=== PATIENT | female | born 1995 | race Caucasian/White ===

== ENCOUNTER 2017-04-03 17:17 | Emergency (ER) | payer OTHER, SELFPAY ==
--- NOTE | 2017-04-03 19:15 | HMH.EDUTC ---
[facility] – [place] Disposition Clinical Impression: Viral syndrome Disposition: Home, Self-Care Condition on Discharge: Good Instructions: DI for Viral Syndrome Additional Instructions: Rest, fluids Referrals: Faheem Vargas MD [Primary Care Provider] - Time of Disposition: 19:51 Medical Decision Making - Medical Records Medical records reviewed: Yes: I reviewed the patient's medical records. Vital Signs: 04/03/17 19:22 Temperature 98.6 F Temperature Source Temporal Artery Scan Pulse Rate [Left Brachial] 94 H Respiratory Rate 20 Blood Pressure [Left Arm] 124/75 Blood Pressure Mean [Left Arm] 91 Blood Pressure Source [Left Arm] Automatic Cuff Blood Pressure Position [Left Arm] Sitting 02 Sat by Pulse Oximetry 98 Oxygen Delivery Method Room Air - Lab Data Lab results reviewed: Yes: I reviewed the patient's lab results. - Berry Inquiry Pt receiving controlled substance: No [facility] [place] HPI - General Stated complaint: fever, body aches Time Seen by Provider: 04/03/17 19:15 - History of Present Illness Provider Complaint: Acute onset fever, body aches, back pain, sore throat, nausea around 12 hours ago. has had the flu, but she already had flu A earlier this year. No vomiting or diarrhea. Onset (ago): hour(s) (12) Relieving factors: none Exacerbating factors: none Associated symptoms: cough, fever/chills, headaches, malaise - Related Data Allergies Allergy/AdvReac Type Severity Reaction Status Date / Time No Known Allergies Allergy Unverified 02/09/17 14:57 [facility] History I have reviewed the patient's past medical history: Yes ROS Obtained: Yes All systems reviewed & no additional complaints - Constitutional Constitutional: Reports body ache, Reports chills, Reports fever(s), Reports malaise - ENT Ears, Nose, Mouth, and Throat: Reports sore throat Physical Exam - General General appearance: alert, in no apparent distress - Head Head exam: atraumatic, normocephalic, normal inspection - Eye Eye exam: Present: normal appearance, PERRL, EOMI - ENT ENT exam: Present: normal exam, normal oropharynx, mucous membranes moist, TM's normal bilaterally, normal external ear exam - Neck Neck exam: Present: normal inspection, full ROM, trachea midline. Absent: meningismus, lymphadenopathy - Chest Chest inspection: Present: normal inspection, symmetric chest wall rise. Absent: tenderness - Respiratory Respiratory exam: Present: normal lung sounds bilaterally. Absent: respiratory distress - Cardiovascular Cardiovascular exam: Present: regular rate, normal rhythm. Absent: JVD - Abdominal Exam Abdominal exam: Present: soft, normal bowel sounds. Absent: distention, tenderness, guarding - Extremities Exam Extremities exam: Present: normal inspection, full ROM, normal capillary refill. Absent: calf tenderness - Back Exam Back exam: Present: normal inspection. Absent: tenderness - Neurological Exam Neurological exam: Present: alert, oriented X3 - Psychiatric Psychiatric exam: Present: normal affect, normal mood - Skin Skin exam: Present: warm, dry, intact, normal color - Lymphatic Lymphatic Findings: no adenopathy
[2017-04-03 19:22] VITALS: BP 124/75; PULSE 94; RESP 20; TEMP 37; O2SAT 98; BMI 24.1
[2017-04-03 19:56] VITALS: BP 124/75; PULSE 94; RESP 20; TEMP 37; O2SAT 98
[2017-04-03 20:44] LABS: UTC Influenza A Antigen Negative (Negative)
[2017-04-03 20:45] LABS: UTC Influenza B Antigen Negative (Negative); UTC Strep Screen (Rapid) Negative (Negative)
== END 2017-04-03 19:57 | disposition home or self-care (01) ==
PROVIDERS: Emergency Provider Physician Assistant; Family Provider Family Medicine; PCP Family Medicine
DX: B34.9 Viral infection, unspecified (principal)
CPT/HCPCS: 87804; 87880; 99202

== ENCOUNTER 2017-04-05 09:53 | Emergency (ER) | payer OTHER, SELFPAY ==
[2017-04-05 09:57] VITALS: BP 140/90; PULSE 96; RESP 20; TEMP 37.1; O2SAT 100; BMI 24.1
--- NOTE | 2017-04-05 10:01 | XR_ITS ---
XR chest 2V HISTORY: ITS.REASON: cough ORDERING PHYSICIAN: Marcello Delgado MD PATIENT AGE: 21 years COMPARISON: August 10, 2016 FINDINGS: The cardiomediastinal silhouette and pulmonary vascularity are within normal limits. The lungs are clear without infiltrates, suspicious nodules, or pleural effusions. No acute bony abnormalities. IMPRESSION: Negative chest, no acute finding
--- NOTE | 2017-04-05 10:11 | HMH.EDGENADL ---
ED Disposition Clinical Impression: Viral syndrome, UTI (urinary tract infection) Disposition: Home, Self-Care Condition on Discharge: Good Instructions: Urinary Tract Infection, DI for Viral Syndrome Prescriptions: Ciprofloxacin HCl [Cipro 500mg Tab] 500 mg PO BID #14 tab Ondansetron [Zofran 4mg ODT] 4 mg PO Q6H PRN #10 tab.rapdis PRN Reason: Nausea Referrals: Faheem Vargas MD [Primary Care Provider] - Time of Disposition: 11:15 - Critical Care Critical Care Time: No Attestation: On 04/05/17, the high probability of a clinically significant, sudden or life threatening deterioration of the following system(s) required my full and direct attention, intervention and personal management. The time I documented below is in addition to time spent performing reported procedures but includes the following listed in this critical care notation. Medical Decision Making Vital Signs: 04/05/17 09:57 04/05/17 10:24 04/05/17 11:00 Temperature 98.7 F 98.7 F Temperature Source Oral Oral Pulse Rate [Right Radial] 96 H 88 81 Respiratory Rate 20 20 18 Blood Pressure [Right Arm] 140/90 138/80 125/75 Blood Pressure Mean [Right Arm] 106 99 91 Blood Pressure Source [Right Arm] Automatic Cuff Automatic Cuff Automatic Cuff Blood Pressure Position [Right Arm] Sitting Sitting Sitting 02 Sat by Pulse Oximetry 100 100 97 Oxygen Delivery Method Room Air Room Air Room Air - Lab Data Lab Results 04/05/17 10:17: WBC 4.5 L, RBC 4.98, Hgb 14.5, Hct 44.9, MCV 90.2, MCH 29.2, MCHC 32.3, RDW 13.2, Plt Count 277, MPV 7.2 L, Neut % (Auto) 47.7, Lymph % (Auto) 42.1, [place] % (Auto) 7.7, Eos % (Auto) 2.0, Baso % (Auto) 0.5, Neut # (Auto) 2.1, Lymph # (Auto) 1.9, [place] # (Auto) 0.3, Eos # (Auto) 0.1, Baso # (Auto) 0.0 04/05/17 10:17: Sodium 141, Potassium 3.6, Chloride 105, Carbon Dioxide 28, Anion Gap 11.6, BUN 8, Creatinine 0.57, Estimated Creat Clear 161, Estimated GFR 133, Est GFR ( Amer) 160, Glucose 88, Calcium 8.9, Total Bilirubin 0.3, AST 21, ALT 38, Alkaline Phosphatase 80, Total Protein 7.9, Albumin 3.6, Globulin 4.3 H, Albumin/Globulin Ratio 0.8 L 04/05/17 10:20: Urine Color Yellow, Urine Appearance Sl cloudy, Urine pH 6.0, Ur Specific [place] 1.025, Urine Protein Negative, Urine Glucose (UA) Negative, Urine Ketones Negative, Urine Blood 3+, Urine Nitrate Negative, Urine Bilirubin Negative, Urine Urobilinogen 0.2, Ur Leukocyte Esterase Trace, Urine RBC 20-50, Urine WBC Occasional, Ur Squamous Epith Cells 3-5, Urine Bacteria 1+ 04/05/17 10:20: Urine HCG, Qual Negative Result diagrams: 04/05/17 10:17 04/05/17 10:17 Orders (Tests/Meds): ED MEDICATIONS Generic Name Dose Route Start Last Admin Trade Name Freq PRN Reason Stop Dose Admin Sodium Chloride 1,000 mls @ 999 mls/hr 04/05/17 10:15 04/05/17 10:34 Sod Chlor 0.9% 1000ml Bag IV 04/05/17 11:15 999 mls/hr .Q1H1M EBONI Administration Discontinued Medications Generic Name Dose Route Start Last Admin Trade Name Freq PRN Reason Stop Dose Admin Ondansetron HCl 4 mg 04/05/17 10:02 04/05/17 10:35 Zofran 4mg/2ml Vial IV 04/05/17 10:03 Not Given ONCE ONE - Berry Inquiry Pt receiving controlled substance: No General Adult HPI - General Chief complaint: Headache Stated complaint: pain both side neck,ewing Mode of Arrival: Ambulatory Limitations: No Limitations Description of Symptoms (Recalled from ER Triage Doc. by RN): Patient states she has had a headache since Wednesday. Also endorsing full body weakness and aches, back pain and burning in her neck. History of headaches. Seen at [facility] Wednesday night and both flu and strep were negative. - History of Present Illness HPI narrative: Patient complains of having whole body myalgias some low backache some headache and some sore throat for the past several days as well as lightheadedness she states she feels dehydrated. sHe has been seen at urgent treatment center and has had a negative i
--- NOTE | 2017-04-05 10:14 | ED_ITS ---
ED Disposition Clinical Impression: Viral syndrome, UTI (urinary tract infection) Disposition: Home, Self-Care Condition on Discharge: Good Instructions: Urinary Tract Infection, DI for Viral Syndrome Prescriptions: Ciprofloxacin HCl [Cipro 500mg Tab] 500 mg PO BID #14 tab Ondansetron [Zofran 4mg ODT] 4 mg PO Q6H PRN #10 tab.rapdis PRN Reason: Nausea Referrals: Faheem Vargas MD [Primary Care Provider] - Time of Disposition: 11:15 - Critical Care Critical Care Time: No Attestation: On 04/05/17, the high probability of a clinically significant, sudden or life threatening deterioration of the following system(s) required my full and direct attention, intervention and personal management. The time I documented below is in addition to time spent performing reported procedures but includes the following listed in this critical care notation. Medical Decision Making Vital Signs: 04/05/17 09:57 04/05/17 10:24 04/05/17 11:00 Temperature 98.7 F 98.7 F Temperature Source Oral Oral Pulse Rate [Right Radial] 96 H 88 81 Respiratory Rate 20 20 18 Blood Pressure [Right Arm] 140/90 138/80 125/75 Blood Pressure Mean [Right Arm] 106 99 91 Blood Pressure Source [Right Arm] Automatic Cuff Automatic Cuff Automatic Cuff Blood Pressure Position [Right Arm] Sitting Sitting Sitting 02 Sat by Pulse Oximetry 100 100 97 Oxygen Delivery Method Room Air Room Air Room Air - Lab Data Lab Results 04/05/17 10:17: WBC 4.5 L, RBC 4.98, Hgb 14.5, Hct 44.9, MCV 90.2, MCH 29.2, MCHC 32.3, RDW 13.2, Plt Count 277, MPV 7.2 L, Neut % (Auto) 47.7, Lymph % (Auto ) 42.1, [place] % (Auto) 7.7, Eos % (Auto) 2.0, Baso % (Auto) 0.5, Neut # (Auto) 2.1, Lymph # (Auto) 1.9, [place] # (Auto) 0.3, Eos # (Auto) 0.1, Baso # (Auto) 0.0 04/05/17 10:17: Sodium 141, Potassium 3.6, Chloride 105, Carbon Dioxide 28, Anion Gap 11.6, BUN 8, Creatinine 0.57, Estimated Creat Clear 161, Estimated GFR 133, Est GFR ( Amer) 160, Glucose 88, Calcium 8.9, Total Bilirubin 0.3, AST 21, ALT 38, Alkaline Phosphatase 80, Total Protein 7.9, Albumin 3.6, Globulin 4.3 H, Albumin/Globulin Ratio 0.8 L 04/05/17 10:20: Urine Color Yellow, Urine Appearance Sl cloudy, Urine pH 6.0, Ur Specific [place] 1.025, Urine Protein Negative, Urine Glucose (UA) Negative, Urine Ketones Negative, Urine Blood 3+, Urine Nitrate Negative, Urine Bilirubin Negative, Urine Urobilinogen 0.2, Ur Leukocyte Esterase Trace, Urine RBC 20-50, Urine WBC Occasional, Ur Squamous Epith Cells 3-5, Urine Bacteria 1+ 04/05/17 10:20: Urine HCG, Qual Negative Result diagrams: 04/05/17 10:17 04/05/17 10:17 Orders (Tests/Meds): ED MEDICATIONS Generic Name Dose Route Start Last Admin Trade Name Freq PRN Reason Stop Dose Admin Sodium Chloride 1,000 mls @ 999 mls/hr 04/05/17 10:15 04/05/17 10:34 Sod Chlor 0.9% 1000ml Bag IV 04/05/17 11:15 999 mls/hr .Q1H1M EBONI Administration Discontinued Medications Generic Name Dose Route Start Last Admin Trade Name Freq PRN Reason Stop Dose Admin Ondansetron HCl 4 mg 04/05/17 10:02 04/05/17 10:35 Zofran 4mg/2ml Vial IV 04/05/17 10:03 Not Given ONCE ONE - Berry Inquiry Pt receiving controlled substance: No General Adult HPI - General Chief complaint: Headache Stated complaint: pain both side neck,ewing Mode of Arrival: Ambulatory Limitations: No Limitations De
[2017-04-05 10:23] LABS: Basophils % 0.5 % (0.1-2.0); Eosinophils # 0.1 K/mm3 (0.0-0.4); Hematocrit 44.9 % (37.0-47.0); Hemoglobin 14.5 g/dL (12.2-16.2); Lymphocytes # 1.9 K/mm3 (0.7-4.5); Lymphocytes % 42.1 K/mm3 (10-50); Mean Corpuscular HGB Conc 32.3 g/dL (31.8-35.4); Mean Corpuscular Hemoglobin 29.2 pg (27.0-31.2); Mean Corpuscular Volume 90.2 fl (81-99); Mean Platelet Volume 7.2 fl (7.4-10.4); Monocytes # 0.3 K/mm3 (0.1-1.0); Monocytes % 7.7 % (1.7-9.3); Neutrophils # 2.1 K/mm3 (1.8-7.8); Neutrophils % 47.7 % (37.0-80.0); Platelet Count 277 K/mm3 (142-424); Red Blood Count 4.98 M/mm3 (4.20-5.40); Red Cell Distribution Width 13.2 % (11.5-17.5); White Blood Count 4.5 K/mm3 (4.8-10.8)
[2017-04-05 10:24] VITALS: BP 138/80; PULSE 88; RESP 20; TEMP 37.1; O2SAT 100
[2017-04-05 10:37] LABS: Alanine Aminotransferase 38 U/L (12-78); Albumin Level 3.6 gm/dL (3.4-5.0); Albumin/Globulin Ratio 0.8 (1.1-1.8); Alkaline Phosphatase 80 U/L (46-116); Anion Gap 11.6 mEq/L (5-15); Aspartate Amino Transferase 21 U/L (15-37); Bilirubin,Total 0.3 mg/dL (0.2-1.0); Blood Urea Nitrogen 8 mg/dL (7-18); Calcium 8.9 mg/dL (8.5-10.1); Carbon Dioxide 28 mmol/L (21.0-32.0); Chloride 105 mmol/L (98-107); Creatinine Clearance Estimated 161 mL/min (0-300); Creatinine,Serum 0.57 mg/dL (0.55-1.02); Estimated Glomerular Filt Rate 133 ml/min (>60); GFR (African American) 160 ML/MIN (>60); Globulin 4.3 gm/dl (1.3-3.2); Glucose 88 mg/dL (74-106); Potassium 3.6 mmoL/L (3.5-5.1); Sodium 141 mmol/L (136-145); Total Protein,Serum 7.9 gm/dL (6.4-8.2)
[2017-04-05 10:43] LABS: Microscopic, Urine URINE MICROSCOPIC (MICROSCOPIC)
[2017-04-05 10:45] LABS: Appearance,Urine SL CLOUDY (Clear); Bilirubin,Urine Negative (Negative); Blood, Urine 3+ (Negative); Color,Urine YELLOW (Yellow); Glucose,Urine (UA) Negative (Negative); Ketones,Urine Negative (Negative); Leukocyte Esterase,Urine TRACE (Negative); Nitrate,Urine Negative (Negative); Protein,Urine Negative (Negative); Specific Gravity, Urine 1.025 (1.005-1.030); Urobilinogen,Urine 0.2 EU/dl (0.2)
[2017-04-05 10:52] LABS: Urine Pregnancy, HCG Qual. Negative (Negative)
[2017-04-05 11:00] VITALS: BP 125/75; PULSE 81; RESP 18; O2SAT 97
[2017-04-05 11:03] LABS: RBC,Urine 20-50 #/hpf (0-3); WBC,Urine Occasional #/hpf (0-3)
[2017-04-05 11:04] LABS: Bacteria,Urine 1+ /lpf
[2017-04-05 11:23] VITALS: BP 120/78; PULSE 88; RESP 20; TEMP 37.1; O2SAT 99
== END 2017-04-05 11:32 | disposition home or self-care (01) ==
PROVIDERS: Emergency Provider Emergency Medicine; Family Provider Family Medicine; PCP Family Medicine
DX: B34.9 Viral infection, unspecified (principal); N39.0 Urinary tract infection, site not specified; F17.210 Nicotine dependence, cigarettes, uncomplicated
CPT/HCPCS: 71046; 80053; 81001; 81025; 85025; 96365; 99283

== ENCOUNTER → 2017-06-24 16:53 | Outpatient (CLI) | payer OTHER, SELFPAY ==
[2017-06-24 17:11] LABS: Basophils % 0.4 % (0.1-2.0); Eosinophils # 0.2 K/mm3 (0.0-0.4); Eosinophils % 1.9 % (0.1-12.0); Hematocrit 41.4 % (37.0-47.0); Hemoglobin 13.8 g/dL (12.2-16.2); Lymphocytes # 3.8 K/mm3 (0.7-4.5); Lymphocytes % 38.6 K/mm3 (10-50); Mean Corpuscular HGB Conc 33.3 g/dL (31.8-35.4); Mean Corpuscular Hemoglobin 29.6 pg (27.0-31.2); Mean Corpuscular Volume 88.9 fl (81-99); Mean Platelet Volume 7.1 fl (7.4-10.4); Monocytes # 0.4 K/mm3 (0.1-1.0); Monocytes % 4.1 % (1.7-9.3); Neutrophils # 5.4 K/mm3 (1.8-7.8); Neutrophils % 55.1 % (37.0-80.0); Platelet Count 416 K/mm3 (142-424); Red Blood Count 4.66 M/mm3 (4.20-5.40); Red Cell Distribution Width 12.7 % (11.5-17.5); White Blood Count 9.8 K/mm3 (4.8-10.8)
[2017-06-24 19:29] LABS: Blood Urea Nitrogen 10 mg/dL (7-18); Carbon Dioxide 25 mmol/L (21.0-32.0); Chloride 106 mmol/L (98-107); Creatinine,Serum 0.59 mg/dL (0.55-1.02); Estimated Glomerular Filt Rate 127 ml/min (>60); Free T4 (Free Thyroxine) 1.03 ng/dl (0.76-1.46); GFR (African American) 154 ML/MIN (>60); Glucose 131 mg/dL (74-106); Sodium 142 mmol/L (136-145); Thyroid Stimulating Hormone 0.94 uIU/ml (0.358-3.740)
== END ==
PROVIDERS: Visit Provider Physician Assistant
DX: R00.0 Tachycardia, unspecified (principal); R06.00 Dyspnea, unspecified
CPT/HCPCS: 36415; 80048; 84439; 84443; 85025

== ENCOUNTER → 2017-08-09 13:05 | Outpatient (CLI) | payer OTHER, SELFPAY | PROVIDERS: Visit Provider Physician Assistant | DX: R00.2 Palpitations (principal) | CPT/HCPCS: 93005 ==

== ENCOUNTER → 2017-09-27 14:10 | Outpatient (CLI) | payer OTHER, SELFPAY ==
[2017-09-27 14:47] LABS: Basophils % 0.5 % (0.1-2.0); Eosinophils # 0.2 K/mm3 (0.0-0.4); Eosinophils % 1.8 % (0.1-12.0); Hematocrit 40.8 % (37.0-47.0); Hemoglobin 13.3 g/dL (12.2-16.2); Lymphocytes # 2.7 K/mm3 (0.7-4.5); Lymphocytes % 32.6 K/mm3 (10-50); Mean Corpuscular HGB Conc 32.7 g/dL (31.8-35.4); Mean Corpuscular Volume 88.5 fl (81-99); Mean Platelet Volume 6.8 fl (7.4-10.4); Monocytes # 0.3 K/mm3 (0.1-1.0); Monocytes % 3.6 % (1.7-9.3); Neutrophils # 5.1 K/mm3 (1.8-7.8); Neutrophils % 61.5 % (37.0-80.0); Platelet Count 362 K/mm3 (142-424); Red Cell Distribution Width 13.5 % (11.5-17.5); White Blood Count 8.3 K/mm3 (4.8-10.8)
[2017-09-27 15:38] LABS: Amphetamine/Metha Screen,Urine Negative ng/mL (<1000); Barbiturates Screen,Urine Negative ng/mL (<200); Benzodiazepines Screen,Urine Negative ng/mL (<200); Cannabinoid Screen,Urine Negative ng/mL (<50); Cocaine Screen,Urine Negative ng/mL (<300); Methadone Screen,Urine Negative ng/mL (<300); Opiate Screen,Urine Negative ng/mL (<300); Phencyclidine Screen,Urine Negative ng/mL (<25)
[2017-09-27 16:08] LABS: HCG,Quantitative 1728 mIU/mL; Thyroid Stimulating Hormone 1.27 uIU/ml (0.358-3.740)
[2017-09-30 06:48] LABS: HIV Screen 4th Generation wRfx Non Reactive (Non Reactive); Hepatitis B Surface Antigen Negative (Negative); Rapid Plasma Reagin Ab Titer Non Reactive (NonRea<1:1)
[2017-10-01 15:19] LABS: Rubella Antibodies, IgG 2.21 index (Immune >0.99)
== END ==
PROVIDERS: Family Provider Family Medicine; Visit Provider Obstetrics & Gynecology
DX: Z34.90 Encounter for supervision of normal pregnancy, unspecified, unspecified trimester (principal)
CPT/HCPCS: 36415; 80305; 84443; 84702; 85025; 86592; 86703; 86762; 86850; 87340; G0432

== ENCOUNTER → 2017-09-30 08:14 | Outpatient (CLI) | payer OTHER, SELFPAY ==
[2017-09-30 10:27] LABS: HCG,Quantitative 1715 mIU/mL
== END ==
PROVIDERS: Visit Provider Obstetrics & Gynecology
DX: Z34.90 Encounter for supervision of normal pregnancy, unspecified, unspecified trimester (principal)
CPT/HCPCS: 36415; 84702

== ENCOUNTER → 2017-10-03 07:59 | Outpatient (CLI) | payer OTHER, SELFPAY ==
[2017-10-03 09:51] LABS: HCG,Quantitative 1794 mIU/mL
== END ==
PROVIDERS: Visit Provider Obstetrics & Gynecology
DX: O20.0 Threatened abortion (principal)
CPT/HCPCS: 36415; 84702

== ENCOUNTER → 2018-01-03 08:53 | Outpatient (CLI) | payer OTHER, SELFPAY ==
[2018-01-03 10:21] LABS: Glucose 1 Hour 125 mg/dL (74-106)
== END ==
PROVIDERS: Visit Provider Obstetrics & Gynecology
DX: E16.2 Hypoglycemia, unspecified (principal)
CPT/HCPCS: 36415; 82951

== ENCOUNTER → 2018-01-04 15:57 | Outpatient (CLI) | payer OTHER, SELFPAY ==
--- NOTE | 2018-01-04 16:02 | XR_ITS ---
EXAM: XR lumbar spine min 4V HISTORY: ITS.REASON: LOW BACK PAIN ORDERING PHYSICIAN: Faheem Vargas MD PATIENT AGE: 22 years COMPARISON: None FINDINGS: Normal alignment. There is minimal lumbar curvature convex left No fracture or dislocation. No lytic or blastic change. No significant degenerative change. The disc spaces are preserved. IMPRESSION: 1. No acute finding. 2. Minimal lumbar curvature convex left
== END ==
PROVIDERS: PCP Family Medicine; Visit Provider Family Medicine
DX: M54.5 Low back pain (principal)
CPT/HCPCS: 72110

== ENCOUNTER → 2018-03-29 14:14 | Outpatient (CLI) | payer OTHER, SELFPAY ==
[2018-03-29 14:31] LABS: Basophils # 0.1 K/mm3 (0-0.2); Basophils % 0.7 % (0.1-2.0); Eosinophils # 0.3 K/mm3 (0.0-0.4); Eosinophils % 3.3 % (0.1-12.0); Hematocrit 45.7 % (37.0-47.0); Hemoglobin 14.9 g/dL (12.2-16.2); Lymphocytes # 3.2 K/mm3 (0.7-4.5); Lymphocytes % 36.1 % (10-50); Mean Corpuscular HGB Conc 32.6 g/dL (31.8-35.4); Mean Corpuscular Hemoglobin 29.4 pg (27.0-31.2); Mean Corpuscular Volume 90.4 fl (81-99); Mean Platelet Volume 7.7 fl (7.4-10.4); Monocytes # 0.3 K/mm3 (0.1-1.0); Monocytes % 3.3 % (1.7-9.3); Neutrophils % 56.5 % (37.0-80.0); Platelet Count 347 K/mm3 (142-424); Red Blood Count 5.05 M/mm3 (4.20-5.40); Red Cell Distribution Width 13.4 % (11.5-17.5); White Blood Count 8.9 K/mm3 (4.8-10.8)
[2018-03-31 08:45] LABS: HIV Screen 4th Generation wRfx Non Reactive (Non Reactive)
[2018-03-31 09:30] LABS: Rapid Plasma Reagin Ab Titer Non Reactive (NonRea<1:1); Rubella Antibodies, IgG 1.68 index (Immune >0.99)
[2018-03-31 11:51] LABS: Hepatitis B Surface Antigen Negative (Negative)
== END ==
PROVIDERS: Visit Provider Obstetrics & Gynecology
DX: Z34.90 Encounter for supervision of normal pregnancy, unspecified, unspecified trimester (principal)
CPT/HCPCS: 36415; 84443; 85025; 86592; 86703; 86762; 86850; 87340; G0432

== ENCOUNTER → 2018-03-31 17:06 | Outpatient (CLI) | payer OTHER, SELFPAY ==
[2018-03-31 19:11] LABS: HCG,Quantitative 3257 mIU/mL
== END ==
PROVIDERS: Visit Provider Obstetrics & Gynecology
DX: Z34.90 Encounter for supervision of normal pregnancy, unspecified, unspecified trimester (principal)
CPT/HCPCS: 84702

== ENCOUNTER → 2018-04-04 07:33 | Outpatient (CLI) | payer OTHER, SELFPAY ==
[2018-04-04 10:22] LABS: HCG,Quantitative 7600 mIU/mL
== END ==
PROVIDERS: Visit Provider Obstetrics & Gynecology
DX: Z34.90 Encounter for supervision of normal pregnancy, unspecified, unspecified trimester (principal)
CPT/HCPCS: 36415; 84702

== ENCOUNTER → 2018-06-20 16:43 | Outpatient (CLI) | payer OTHER, SELFPAY ==
[2018-06-23 13:10] LABS: AFP Value 39.3 ng/mL (.); DIA Value 179.06 pg/mL (.); DSR (Second Trimester) 1 IN 10000 (.); Gestat. Age Based On EDD (.); OSBR Risk 1 IN 4529 (.); Results Report (.); hCG MoM 0.38 (.); hCG Value 14227 mIU/mL (.); uE3 MoM 0.99 (.); uE3 Value 0.77 ng/mL (.)
== END ==
PROVIDERS: Visit Provider Obstetrics & Gynecology
DX: Z34.90 Encounter for supervision of normal pregnancy, unspecified, unspecified trimester (principal)
CPT/HCPCS: 36415; 82106

== ENCOUNTER 2018-07-16 00:48 | Outpatient (CLI) | payer OTHER, SELFPAY ==
[2018-07-16 00:55] VITALS: BMI 29.2
[2018-07-16 01:06] LABS: Appearance,Urine CLEAR (Clear); Bilirubin,Urine Negative (Negative); Blood, Urine 3+ (Negative); Glucose,Urine (UA) Negative (Negative); Ketones,Urine Negative (Negative); Leukocyte Esterase,Urine 2+ (Negative); Microscopic, Urine URINE MICROSCOPIC (MICROSCOPIC); Nitrate,Urine Negative (Negative); Protein,Urine TRACE (Negative); Specific Gravity, Urine 1.025 (1.005-1.030)
[2018-07-16 01:07] LABS: Color,Urine Dark Yellow (Yellow)
[2018-07-16 01:12] LABS: RBC,Urine TNTC #/hpf (0-3)
[2018-07-16 01:13] LABS: Bacteria,Urine 2+ /lpf; Mucus,Urine 1+ /lpf; Sperm,Urine 2+ /lpf
[2018-07-16 01:15] LABS: Amphetamine/Metha Screen,Urine Negative ng/mL (<1000); Barbiturates Screen,Urine Negative ng/mL (<200); Benzodiazepines Screen,Urine Negative ng/mL (<200); Cannabinoid Screen,Urine Negative ng/mL (<50); Cocaine Screen,Urine Negative ng/mL (<300); Methadone Screen,Urine Negative ng/mL (<300); Opiate Screen,Urine Negative ng/mL (<300); Phencyclidine Screen,Urine Negative ng/mL (<25)
[2018-07-16 01:27] VITALS: BP 118/72; PULSE 102; RESP 18; TEMP 37.3; O2SAT 98; BMI 29.2
== END 2018-07-16 01:50 | disposition home or self-care (01) ==
LOC: OBOUT 00:50 → OB 00:52
PROVIDERS: PCP Family Medicine; Referring Provider Obstetrics & Gynecology; Visit Provider Nurse Practitioner Obstetrics & Gynecology
DX: Z3A.20 20 weeks gestation of pregnancy; O36.8190 Decreased fetal movements, unspecified trimester, not applicable or unspecified; O26.851 Spotting complicating pregnancy, first trimester
CPT/HCPCS: 80305; 81001; 87086

== ENCOUNTER → 2018-08-11 15:50 | Outpatient (CLI) | payer OTHER, SELFPAY | PROVIDERS: PCP Family Medicine; Visit Provider Obstetrics & Gynecology | DX: R94.31 Abnormal electrocardiogram [ECG] [EKG] (principal) | CPT/HCPCS: 93005 ==

== ENCOUNTER → 2018-09-03 10:56 | Outpatient (CLI) | payer OTHER, SELFPAY | PROVIDERS: Visit Provider Obstetrics & Gynecology | DX: Z34.90 Encounter for supervision of normal pregnancy, unspecified, unspecified trimester (principal) ==

== ENCOUNTER → 2018-09-08 09:30 | Outpatient (CLI) | payer OTHER, SELFPAY ==
--- NOTE | 2018-09-08 09:31 | US_ITS ---
US gallbladder HISTORY: Right upper quadrant pain with vomiting ITS.REASON: ABDOMINAL PAIN ORDERING PHYSICIAN: Rylan Lamb MD PATIENT AGE: 22 years Comparison: None FINDINGS: PANCREAS: Unremarkable. No obvious mass or abnormal fluid collection. No ductal dilatation LIVER: No focal liver lesions demonstrated. Homogeneous echogenicity. No intrahepatic biliary ductal dilatation evident RIGHT KIDNEY: Unremarkable. Normal size and echogenicity. No hydronephrosis GALLBLADDER: No gallstones, gallbladder wall thickening, pericholecystic fluid, or biliary dilatation. Gallbladder is slightly distended at 9 x 4 cm IMPRESSION: 1. No gallstones, pericholecystic fluid, biliary dilatation, or gallbladder wall thickening. 2. Gallbladder is slightly distended at 9 x 4 cm
== END ==
PROVIDERS: PCP Family Medicine; Visit Provider Obstetrics & Gynecology
DX: O26.899 Other specified pregnancy related conditions, unspecified trimester (principal); R10.9 Unspecified abdominal pain
CPT/HCPCS: 76705

== ENCOUNTER → 2018-09-22 10:41 | Outpatient (CLI) | payer OTHER, SELFPAY ==
--- NOTE | 2018-09-22 10:45 | CA_ITS ---
PROCEDURE: 2-D M-mode and color Doppler study INDICATIONS FOR THE TEST: Chest pain COPD Heart Murmur Tobacco Smoking+ Palpitations+ Fatigue Syncope Edema Hypertension Diabetes Mellitus Rheumatic Fever SOB COON Obesity Hyperlipidemia Family History HD Additional History 30 wks preg. PATIENT INFORMATION HEIGHT:65 WEIGHT:172 GENDER: Female B/P:151/95 2-D/M-MODE INTERPRETATION: 2-D MEASUREMENTS OBSERVED VALUES IN CMS Right Ventricular Dimension (RVDd) 1.6 Interventricular Septum (Thickness)(IVsd) 1.1 Left Ventricular Internal Dimensions(LVIDd) 4.0 Left Ventricular Posterior Wall (Thickness)(LVPWd) 1.1 Aortic Root 2.2 Aortic Cusp Separation 2.1 Left Atrial Dimensions (LAD) 3.2 2D 1. Left atrium is normal size, left ventricle is normal size, there is no concentric left ventricular hypertrophy, visually estimated ejection fraction 55% with no regional wall motion abnormality. 2. The right atrium and right ventricle are normal size and contractility. 3. The aortic, mitral and tricuspid valvular grossly normal. 4. The pulmonic valve is poorly visualized. 5. No significant pericardial effusion noted. DOPPLER INTERROGATION: Doppler interrogation of the aortic, mitral and tricuspid valvular presence of mild mitral and tricuspid regurgitation, tricuspid regurgitation jet velocity is inadequate for calculation of the right ventricular systolic pressure, diastolic parameters are within normal range. CONCLUSION: 1. Normal left ventricular size, preserved left ventricular systolic function, visually estimated ejection fraction 55% with no regional wall motion abnormality, diastolic parameters are within normal range. 2. Mild mitral and tricuspid regurgitation of no hemodynamic significance. 3. No significant pericardial effusion noted.
[2018-09-22 16:54] LABS: Basophils % 0.2 % (0.1-2.0); Eosinophils # 0.1 K/mm3 (0.0-0.4); Eosinophils % 0.7 % (0.1-12.0); Hemoglobin 11.8 g/dL (12.2-16.2); Lymphocytes # 1.6 K/mm3 (0.7-4.5); Lymphocytes % 17.1 % (10-50); Mean Corpuscular HGB Conc 32.7 g/dL (31.8-35.4); Mean Corpuscular Hemoglobin 30.6 pg (27.0-31.2); Mean Corpuscular Volume 93.6 fl (81-99); Monocytes # 0.5 K/mm3 (0.1-1.0); Monocytes % 5.3 % (1.7-9.3); Neutrophils # 6.9 K/mm3 (1.8-7.8); Neutrophils % 76.7 % (37.0-80.0); Platelet Count 268 K/mm3 (142-424); Red Blood Count 3.85 M/mm3 (4.20-5.40); Red Cell Distribution Width 13.1 % (11.5-17.5)
[2018-09-22 17:00] LABS: Alanine Aminotransferase 17 U/L (12-78); Anion Gap 14.2 mEq/L (5-15); Aspartate Amino Transferase 9 U/L (15-37); Blood Urea Nitrogen 5 mg/dL (7-18); Calcium 9.2 mg/dL (8.5-10.1); Carbon Dioxide 24 mmol/L (21.0-32.0); Chloride 102 mmol/L (98-107); Creatinine,Serum 0.54 mg/dL (0.55-1.02); Estimated Glomerular Filt Rate 139 ml/min (>60); GFR (African American) 168 ML/MIN (>60); Glucose 98 mg/dL (74-106); Potassium 3.2 mmoL/L (3.5-5.1); Sodium 137 mmol/L (136-145); Uric Acid 3.7 mg/dL (2.6-7.2)
[2018-09-22 17:19] LABS: Activated Partial Thrombo Time 28.3 seconds (23.6-34.0); Fibrinogen 434 mg/dL (204-500); INR 0.94 (0.9-1.1); Prothrombin Time 9.8 seconds (9.4-11.8)
[2018-09-22 17:30] LABS: D-Dimer 618 ng/mL (0-400)
== END ==
PROVIDERS: Obstetrics & Gynecology; PCP Family Medicine; Visit Provider Internal Medicine Cardiovascular Disease
DX: R00.2 Palpitations (principal); R00.0 Tachycardia, unspecified; R42 Dizziness and giddiness; R55 Syncope and collapse
CPT/HCPCS: 36415; 80048; 84450; 84460; 84550; 85025; 85378; 85384; 85610; 85730; 93270; 93306

== ENCOUNTER → 2018-09-22 16:20 | Outpatient (CLI) | payer OTHER, SELFPAY | PROVIDERS: Visit Provider Obstetrics & Gynecology | DX: Z34.90 Encounter for supervision of normal pregnancy, unspecified, unspecified trimester (principal) ==

== ENCOUNTER → 2018-10-03 15:57 | Outpatient (CLI) | payer OTHER, SELFPAY ==
[2018-10-03 16:50] LABS: D-Dimer 420 ng/mL (0-400)
== END ==
PROVIDERS: Visit Provider Obstetrics & Gynecology
DX: Z34.90 Encounter for supervision of normal pregnancy, unspecified, unspecified trimester (principal)
CPT/HCPCS: 36415; 85378

== ENCOUNTER 2018-10-12 21:55 | Outpatient (CLI) | payer OTHER, SELFPAY ==
[2018-10-12 22:27] VITALS: BMI 29.1
[2018-10-12 22:54] VITALS: BP 134/84; PULSE 97; RESP 16; TEMP 36.6; O2SAT 97; BMI 29.1
[2018-10-12 22:58] LABS: Appearance,Urine CLEAR (Clear); Bilirubin,Urine Negative (Negative); Blood, Urine Negative (Negative); Color,Urine YELLOW (Yellow); Glucose,Urine (UA) Negative (Negative); Ketones,Urine Negative (Negative); Leukocyte Esterase,Urine 2+ (Negative); Microscopic, Urine URINE MICROSCOPIC (MICROSCOPIC); Nitrate,Urine Negative (Negative); Protein,Urine Negative (Negative); Specific Gravity, Urine 1.015 (1.005-1.030); Urobilinogen,Urine 0.2 EU/dl (0.2)
[2018-10-12 23:07] LABS: Amphetamine/Metha Screen,Urine Negative ng/mL (<1000); Barbiturates Screen,Urine Negative ng/mL (<200); Benzodiazepines Screen,Urine Negative ng/mL (<200); Cannabinoid Screen,Urine Negative ng/mL (<50); Cocaine Screen,Urine Negative ng/mL (<300); Methadone Screen,Urine Negative ng/mL (<300); Opiate Screen,Urine Negative ng/mL (<300); Phencyclidine Screen,Urine Negative ng/mL (<25)
[2018-10-12 23:23] LABS: Amorphous Sediment,Urine 1+ /lpf; Bacteria,Urine Trace /lpf
[2018-10-12 23:53] LABS: Fetal Fibronectin (Rapid) Negative (Negative)
== END 2018-10-13 | disposition home or self-care (01) ==
LOC: OBOUT 21:56 → OB 21:58
PROVIDERS: PCP Family Medicine; Visit Provider Nurse Practitioner Obstetrics & Gynecology
DX: O36.8130 Decreased fetal movements, third trimester, not applicable or unspecified (principal); Z3A.33 33 weeks gestation of pregnancy
CPT/HCPCS: 59025; 80305; 81001; 82731; 87086

== ENCOUNTER → 2018-10-17 16:12 | Outpatient (CLI) | payer OTHER, SELFPAY | PROVIDERS: Visit Provider Obstetrics & Gynecology | DX: Z34.90 Encounter for supervision of normal pregnancy, unspecified, unspecified trimester (principal) | CPT/HCPCS: 86403 ==

== ENCOUNTER 2018-11-06 19:12 | Outpatient (CLI) | payer OTHER, SELFPAY ==
[2018-11-06 19:24] VITALS: BMI 29.9
[2018-11-06 19:31] LABS: Microscopic, Urine URINE MICROSCOPIC (MICROSCOPIC)
[2018-11-06 19:36] LABS: Appearance,Urine CLOUDY (Clear); Bilirubin,Urine Negative (Negative); Blood, Urine Negative (Negative); Color,Urine YELLOW (Yellow); Glucose,Urine (UA) Negative (Negative); Ketones,Urine Negative (Negative); Leukocyte Esterase,Urine 2+ (Negative); Nitrate,Urine Negative (Negative); PH,Urine 7.5 (5.0-8.5); Protein,Urine Negative (Negative); Urobilinogen,Urine 0.2 EU/dl (0.2)
[2018-11-06 19:43] LABS: Amphetamine/Metha Screen,Urine Negative ng/mL (<1000); Barbiturates Screen,Urine Negative ng/mL (<200); Benzodiazepines Screen,Urine Negative ng/mL (<200); Cannabinoid Screen,Urine Negative ng/mL (<50); Cocaine Screen,Urine Negative ng/mL (<300); Methadone Screen,Urine Negative ng/mL (<300); Opiate Screen,Urine Negative ng/mL (<300); Phencyclidine Screen,Urine Negative ng/mL (<25)
[2018-11-06 19:48] LABS: Bacteria,Urine 1+ /lpf; Squamous Epithelial Cell,Urine 20-50 #/hpf (0-5); WBC,Urine 50-100 #/hpf (0-3)
[2018-11-06 19:49] VITALS: BP 137/86; PULSE 112; RESP 18; TEMP 37.2; O2SAT 97; BMI 29.9
== END 2018-11-06 21:10 | disposition home or self-care (01) ==
LOC: OBOUT 19:14 → OB 19:15
PROVIDERS: PCP Family Medicine; Visit Provider Nurse Practitioner Obstetrics & Gynecology
DX: O26.893 Other specified pregnancy related conditions, third trimester (principal); Z3A.37 37 weeks gestation of pregnancy; M79.89 Other specified soft tissue disorders
CPT/HCPCS: 59025; 80305; 81001; 87086

== ENCOUNTER 2018-11-07 14:24 | Outpatient (CLI) | payer OTHER, SELFPAY ==
[2018-11-07 14:33] VITALS: BP 134/75; PULSE 105; RESP 18; TEMP 36.9; O2SAT 97; BMI 29.9
[2018-11-07 15:00] VITALS: BP 130/81
[2018-11-07 15:15] VITALS: BP 126/74
[2018-11-07 15:18] LABS: Activated Partial Thrombo Time 27.9 seconds (23.6-34.0); Fibrinogen 423 mg/dL (204-500); INR 0.91 (0.9-1.1); Prothrombin Time 9.5 seconds (9.4-11.8)
[2018-11-07 15:20] LABS: Basophils % 0.2 % (0.1-2.0); Eosinophils # 0.1 K/mm3 (0.0-0.4); Eosinophils % 1.1 % (0.1-12.0); Hematocrit 33.7 % (37.0-47.0); Hemoglobin 11.3 g/dL (12.2-16.2); Lymphocytes # 2.5 K/mm3 (0.7-4.5); Mean Corpuscular HGB Conc 33.5 g/dL (31.8-35.4); Mean Corpuscular Hemoglobin 30.4 pg (27.0-31.2); Mean Corpuscular Volume 90.7 fl (81-99); Mean Platelet Volume 7.7 fl (7.4-10.4); Monocytes # 0.6 K/mm3 (0.1-1.0); Neutrophils # 8.5 K/mm3 (1.8-7.8); Neutrophils % 72.8 % (37.0-80.0); Platelet Count 299 K/mm3 (142-424); Red Blood Count 3.71 M/mm3 (4.20-5.40); Red Cell Distribution Width 13.4 % (11.5-17.5); White Blood Count 11.7 K/mm3 (4.8-10.8)
[2018-11-07 15:24] LABS: Alanine Aminotransferase 13 U/L (12-78); Anion Gap 14.4 mEq/L (5-15); Aspartate Amino Transferase 12 U/L (15-37); Blood Urea Nitrogen 4 mg/dL (7-18); Calcium 8.8 mg/dL (8.5-10.1); Carbon Dioxide 21 mmol/L (21.0-32.0); Chloride 105 mmol/L (98-107); Creatinine Clearance Estimated 294 mL/min (50-200); Creatinine,Serum 0.38 mg/dL (0.55-1.02); Estimated Glomerular Filt Rate 208 ml/min (>60); GFR (African American) 252 ML/MIN (>60); Glucose 90 mg/dL (74-106); Potassium 3.4 mmoL/L (3.5-5.1); Sodium 137 mmol/L (136-145); Uric Acid 3.3 mg/dL (2.6-7.2)
[2018-11-07 15:30] VITALS: BP 121/75
[2018-11-07 15:45] VITALS: BP 124/74
--- NOTE | 2018-11-07 15:47 | HMH.ACPN2 ---
Internal Medicine - PN: Subj *Date: 11/07/18 *Time: 15:47 (NST is reactive. Baseline is in the 140s. Blood pressure 130s over 70s. DTRs normal. PIH labs essentially normal. Impression: Stable. Will observe as outpatient. Return to the office in 3 days.) Exam Vital signs and Labs for Last 24 Hours: Temp Pulse Resp BP Pulse Ox 98.4 F 105 H 18 134/75 97 11/07/18 14:33 11/07/18 14:33 11/07/18 14:33 11/07/18 14:33 11/07/18 14:33 Laboratory Results - last 24 hr 11/07/18 14:52: WBC 11.7 H, RBC 3.71 L, Hgb 11.3 L, Hct 33.7 L, MCV 90.7, MCH 30.4, MCHC 33.5, RDW 13.4, Plt Count 299, MPV 7.7, Neut % (Auto) 72.8, Lymph % (Auto) 21.0, [place] % (Auto) 5.0, Eos % (Auto) 1.1, Baso % (Auto) 0.2, Neut # (Auto) 8.5 H, Lymph # (Auto) 2.5, [place] # (Auto) 0.6, Eos # (Auto) 0.1, Baso # (Auto) 0.0 11/07/18 14:52: PT 9.5, INR 0.91, APTT 27.9, Fibrinogen 423 11/07/18 14:52: Sodium 137, Potassium 3.4 L, Chloride 105, Carbon Dioxide 21, Anion Gap 14.4, BUN 4 L, Creatinine 0.38 L, Estimated Creat Clear 294, Estimated GFR 208, Est GFR ( Amer) 252, Glucose 90, Uric Acid 3.3, Calcium 8.8, AST 12 L, ALT 13 I & O for Last 24 hours: Intake & Output 11/05/18 11/06/18 11/07/18 11/08/18 11:59 11:59 11:59 11:59 Weight 180 lb
[2018-11-07 15:58] LABS: D-Dimer 687 ng/mL (0-400)
== END 2018-11-07 15:55 | disposition home or self-care (01) ==
LOC: OBOUT 14:25 → OB 14:26
PROVIDERS: PCP Family Medicine; Visit Provider Obstetrics & Gynecology
DX: O13.3 Gestational [pregnancy-induced] hypertension without significant proteinuria, third trimester (principal); Z3A.37 37 weeks gestation of pregnancy
CPT/HCPCS: 36415; 59025; 80048; 84450; 84460; 84550; 85025; 85378; 85384; 85610; 85730

== ENCOUNTER 2018-11-12 20:08 | Inpatient (IN) ==
[2018-11-12 20:21] LABS: Microscopic, Urine URINE MICROSCOPIC (MICROSCOPIC)
[2018-11-12 20:28] LABS: Appearance,Urine CLEAR (Clear); Bilirubin,Urine Negative (Negative); Blood, Urine TRACE-I (Negative); Color,Urine YELLOW (Yellow); Glucose,Urine (UA) Negative (Negative); Ketones,Urine Negative (Negative); Leukocyte Esterase,Urine 2+ (Negative); Protein,Urine Negative (Negative); Specific Gravity, Urine >= 1.030 (1.005-1.030); Urobilinogen,Urine 0.2 EU/dl (0.2)
[2018-11-12 20:38] LABS: Amphetamine/Metha Screen,Urine Negative ng/mL (<1000); Barbiturates Screen,Urine Negative ng/mL (<200); Benzodiazepines Screen,Urine Negative ng/mL (<200); Cannabinoid Screen,Urine Negative ng/mL (<50); Cocaine Screen,Urine Negative ng/mL (<300); Methadone Screen,Urine Negative ng/mL (<300); Opiate Screen,Urine Negative ng/mL (<300); Phencyclidine Screen,Urine Negative ng/mL (<25)
[2018-11-12 20:40] LABS: Bacteria,Urine Trace /lpf
[2018-11-12 23:19] LABS: Activated Partial Thrombo Time 28.4 seconds (23.6-34.0); INR 0.9 (0.9-1.1); Prothrombin Time 9.4 seconds (9.4-11.8)
[2018-11-12 23:21] LABS: Anion Gap 15.1 mEq/L (5-15); Calcium 9.2 mg/dL (8.5-10.1); Uric Acid 3.3 mg/dL (2.6-7.2)
[2018-11-12 23:36] LABS: Basophils % 0.3 % (0.1-2.0); Eosinophils # 0.1 K/mm3 (0.0-0.4); Hematocrit 35.4 % (37.0-47.0); Lymphocytes # 3.1 K/mm3 (0.7-4.5); Lymphocytes % 21.9 % (10-50); Mean Corpuscular HGB Conc 33.8 g/dL (31.8-35.4); Mean Corpuscular Volume 92.1 fl (81-99); Mean Platelet Volume 8.6 fl (7.4-10.4); Monocytes # 0.6 K/mm3 (0.1-1.0); Monocytes % 4.5 % (1.7-9.3); Neutrophils % 72.2 % (37.0-80.0); Platelet Count 297 K/mm3 (142-424); Red Blood Count 3.84 M/mm3 (4.20-5.40); Red Cell Distribution Width 13.5 % (11.5-17.5); White Blood Count 13.9 K/mm3 (4.8-10.8)
--- NOTE | 2018-11-13 06:38 | Progress Note ---
Internal Medicine - PN: Subj *Date: 11/13/18 *Time: 06:32 Interval history: This 23-year-old 3, para 1, Ab1 white female presented to labor and delivery at 38-3/7 weeks on 11/12/2018 at 2000 hrs. She is having irregular contractions. Her cervix was 80%, 2 cm, with the presenting vertex at -2 station and bag of water intact. She has been followed for mild PIH, and her blood pressure on admission was 160/89, with a pulse rate of 104 (history of tachycardia). Her oral temperature was 98.4. Her D-dimers were elevated at 877. Her hemoglobin is 12.0 g. Her potassium is low at 3.1. Urinalysis indicated a UTI, and she was started on intravenous ampicillin. She has been observed overnight, and her cervix is now completely effaced, 3 cm, with a presenting vertex at -2 station. Contractions are still irregular. She has been started on intravenous Pitocin, and an amniotomy reveals slightly meconium stained fluid. An internal monitor has been placed. She will receive an epidural and continue with augmentation, in anticipation of a vaginal delivery. She had been contemplating a tubal ligation, but now has decided against that. Exam Vital signs and Labs for Last 24 Hours: Temp Pulse Resp BP Pulse Ox 98.4 F 104 H 18 160/89 H 98 11/12/18 20:38 11/12/18 20:38 11/12/18 20:38 11/12/18 20:38 11/12/18 20:38 Laboratory Results - last 24 hr 11/12/18 20:13: Urine Color Yellow, Urine Appearance Clear, Urine pH 6.0, Ur Specific [place] >= 1.030, Urine Protein Negative, Urine Glucose (UA) Negative, Urine Ketones Negative, Urine Blood Trace-i, Urine Nitrate Negative, Urine Bilirubin Negative, Urine Urobilinogen 0.2, Ur Leukocyte Esterase 2+ A, Urine WBC 10-20, Ur Squamous Epith Cells 3-5, Urine Bacteria Trace 11/12/18 20:13: Urine Opiates Screen Negative, Urine Methadone Screen Negative, Ur Barbituates Screen Negative, Ur Phencyclidine Scrn Negative, Ur Amphetamines Screen Negative, U Benzodiazepines Scrn Negative, Urine Cocaine Screen Negative, U Marijuana (THC) Screen Negative 11/12/18 22:40: WBC 13.9 H, RBC 3.84 L, Hgb 12.0 L, Hct 35.4 L, MCV 92.1, MCH 31.2, MCHC 33.8, RDW 13.5, Plt Count 297, MPV 8.6, Neut % (Auto) 72.2, Lymph % (Auto) 21.9, [place] % (Auto) 4.5, Eos % (Auto) 1.0, Baso % (Auto) 0.3, Neut # (Auto) 10.0 H, Lymph # (Auto) 3.1, [place] # (Auto) 0.6, Eos # (Auto) 0.1, Baso # (Auto) 0.0 11/12/18 22:40: PT 9.4, INR 0.90, APTT 28.4, Fibrinogen 423, D-Dimer 877 H* 11/12/18 22:40: Sodium 138, Potassium 3.1 L, Chloride 104, Carbon Dioxide 22, Anion Gap 15.1 H, BUN 4 L, Creatinine 0.41 L, Estimated Creat Clear 268, Estimated GFR 191, Est GFR ( Amer) 231, Glucose 90, Uric Acid 3.3, Calcium 9.2, AST 13 L, ALT 10 L 11/12/18 22:40: Blood Type O Positive, Antibody Screen Negative I & O for Last 24 hours: Intake & Output 11/10/18 11/11/18 11/12/18 11/13/18 11:59 11:59 11:59 11:59 Weight 177 lb
--- NOTE | 2018-11-13 07:50 | Progress Note ---
Internal Medicine - PN: Subj *Date: 11/13/18 *Time: 07:50 (Epidural is now in situ. The cervix is now completely effaced, 4 cm, with the presenting vertex at -2 station.) Exam Vital signs and Labs for Last 24 Hours: Temp Pulse Resp BP Pulse Ox 98.4 F 104 H 18 160/89 H 98 11/12/18 20:38 11/12/18 20:38 11/12/18 20:38 11/12/18 20:38 11/12/18 20:38 Laboratory Results - last 24 hr 11/12/18 20:13: Urine Color Yellow, Urine Appearance Clear, Urine pH 6.0, Ur Specific [place] >= 1.030, Urine Protein Negative, Urine Glucose (UA) Negative, Urine Ketones Negative, Urine Blood Trace-i, Urine Nitrate Negative, Urine Bilirubin Negative, Urine Urobilinogen 0.2, Ur Leukocyte Esterase 2+ A, Urine WBC 10-20, Ur Squamous Epith Cells 3-5, Urine Bacteria Trace 11/12/18 20:13: Urine Opiates Screen Negative, Urine Methadone Screen Negative, Ur Barbituates Screen Negative, Ur Phencyclidine Scrn Negative, Ur Amphetamines Screen Negative, U Benzodiazepines Scrn Negative, Urine Cocaine Screen Negative, U Marijuana (THC) Screen Negative 11/12/18 22:40: WBC 13.9 H, RBC 3.84 L, Hgb 12.0 L, Hct 35.4 L, MCV 92.1, MCH 31.2, MCHC 33.8, RDW 13.5, Plt Count 297, MPV 8.6, Neut % (Auto) 72.2, Lymph % (Auto) 21.9, [place] % (Auto) 4.5, Eos % (Auto) 1.0, Baso % (Auto) 0.3, Neut # (Auto) 10.0 H, Lymph # (Auto) 3.1, [place] # (Auto) 0.6, Eos # (Auto) 0.1, Baso # (Auto) 0.0 11/12/18 22:40: PT 9.4, INR 0.90, APTT 28.4, Fibrinogen 423, D-Dimer 877 H* 11/12/18 22:40: Sodium 138, Potassium 3.1 L, Chloride 104, Carbon Dioxide 22, Anion Gap 15.1 H, BUN 4 L, Creatinine 0.41 L, Estimated Creat Clear 268, Estimated GFR 191, Est GFR ( Amer) 231, Glucose 90, Uric Acid 3.3, Calcium 9.2, AST 13 L, ALT 10 L 11/12/18 22:40: Blood Type O Positive, Antibody Screen Negative I & O for Last 24 hours: Intake & Output 11/10/18 11/11/18 11/12/18 11/13/18 11:59 11:59 11:59 11:59 Weight 177 lb
--- NOTE | 2018-11-13 09:19 | Progress Note ---
Internal Medicine - PN: Subj *Date: 11/13/18 *Time: 09:18 (Amnioinfusion was carried out because of a cord pattern and that seems to have cleared. Cervix is now completely effaced, 6 cm, with the presenting vertex at -2 station. No further meconium has been identified.) Exam Vital signs and Labs for Last 24 Hours: Temp Pulse Resp BP Pulse Ox 98.4 F 104 H 18 160/89 H 98 11/12/18 20:38 11/12/18 20:38 11/12/18 20:38 11/12/18 20:38 11/12/18 20:38 Laboratory Results - last 24 hr 11/12/18 20:13: Urine Color Yellow, Urine Appearance Clear, Urine pH 6.0, Ur Specific [place] >= 1.030, Urine Protein Negative, Urine Glucose (UA) Negative, Urine Ketones Negative, Urine Blood Trace-i, Urine Nitrate Negative, Urine Bilirubin Negative, Urine Urobilinogen 0.2, Ur Leukocyte Esterase 2+ A, Urine WBC 10-20, Ur Squamous Epith Cells 3-5, Urine Bacteria Trace 11/12/18 20:13: Urine Opiates Screen Negative, Urine Methadone Screen Negative, Ur Barbituates Screen Negative, Ur Phencyclidine Scrn Negative, Ur Amphetamines Screen Negative, U Benzodiazepines Scrn Negative, Urine Cocaine Screen Negative, U Marijuana (THC) Screen Negative 11/12/18 22:40: WBC 13.9 H, RBC 3.84 L, Hgb 12.0 L, Hct 35.4 L, MCV 92.1, MCH 31.2, MCHC 33.8, RDW 13.5, Plt Count 297, MPV 8.6, Neut % (Auto) 72.2, Lymph % (Auto) 21.9, [place] % (Auto) 4.5, Eos % (Auto) 1.0, Baso % (Auto) 0.3, Neut # (Auto) 10.0 H, Lymph # (Auto) 3.1, [place] # (Auto) 0.6, Eos # (Auto) 0.1, Baso # (Auto) 0.0 11/12/18 22:40: PT 9.4, INR 0.90, APTT 28.4, Fibrinogen 423, D-Dimer 877 H* 11/12/18 22:40: Sodium 138, Potassium 3.1 L, Chloride 104, Carbon Dioxide 22, Anion Gap 15.1 H, BUN 4 L, Creatinine 0.41 L, Estimated Creat Clear 268, Estimated GFR 191, Est GFR ( Amer) 231, Glucose 90, Uric Acid 3.3, Calcium 9.2, AST 13 L, ALT 10 L 11/12/18 22:40: Blood Type O Positive, Antibody Screen Negative I & O for Last 24 hours: Intake & Output 11/10/18 11/11/18 11/12/18 11/13/18 11:59 11:59 11:59 11:59 Weight 177 lb
--- NOTE | 2018-11-13 10:47 | Progress Note ---
[facility] Anesthesia Checklist - Structural Data Admitted From: Home Planned Operative Procedure/s: labor epidural Consent for Planned Operative Procedure(s) Verified: Yes - Additional verifications Anesthesia Reactions: No Hx Blood Transfusions: No Blood Transfusion Reaction: No - Airway Assessment C-Spine Mobility Assessed: Yes TMJ Mobility Assessed: Yes Dentition: Good Dentition - Neurological Assessment Level of Consciousness: Awake, Alert, Appropriate - Anesthesia Plan Anesthesia Risk discussed: Yes Anesthesia Plan: Verified ASA Class: II Anesthesia Type: Epidural [facility] History I have reviewed the patient's past medical history: Yes Medical History: Reports:: Gastroesophageal Reflux Disease(GERD), Palpitations Denies:: Cancer, Diabetes Mellitus Type 1, Diabetes Mellitus Type 2, Hypertension, Internal Pacemaker, MRSA, Seizures *Have you ever received a pneumonia vaccine?: No *Have you received a flu vaccine this season?: Yes Other Medical History: Reports: Other. Denies: Blood Transfusion Reaction Anesthesia experience/problems:: none Other Surgeries: Yes: Dilation and Curettage, Diagnostic Lap, Other. No: C- section, Pacemaker Amputation: No Fractures: No - *Social History Smoking Status: Current every day smoker Tobacco Type: cigarettes # Packs/Day (cigarettes): 0 Alcohol Intake: never Alcohol Intake Frequency:: other Substance Use Type: denies use *Occupational Status:: employed Housing: house Household Members: spouse *Travel in the last 8 weeks: None Family Hx:: Heart Attack, Coronary Artery Disease, Diabetes Para: 1
--- NOTE | 2018-11-13 10:53 | Progress Note ---
Internal Medicine - PN: Subj *Date: 11/13/18 *Time: 10:52 (Cervix cervix now completely effaced, 6 cm, 0 station.) Exam Vital signs and Labs for Last 24 Hours: Temp Pulse Resp BP Pulse Ox 98.4 F 104 H 18 160/89 H 98 11/12/18 20:38 11/12/18 20:38 11/12/18 20:38 11/12/18 20:38 11/12/18 20:38 Laboratory Results - last 24 hr 11/12/18 20:13: Urine Color Yellow, Urine Appearance Clear, Urine pH 6.0, Ur Specific [place] >= 1.030, Urine Protein Negative, Urine Glucose (UA) Negative, Urine Ketones Negative, Urine Blood Trace-i, Urine Nitrate Negative, Urine Bilirubin Negative, Urine Urobilinogen 0.2, Ur Leukocyte Esterase 2+ A, Urine WBC 10-20, Ur Squamous Epith Cells 3-5, Urine Bacteria Trace 11/12/18 20:13: Urine Opiates Screen Negative, Urine Methadone Screen Negative, Ur Barbituates Screen Negative, Ur Phencyclidine Scrn Negative, Ur Amphetamines Screen Negative, U Benzodiazepines Scrn Negative, Urine Cocaine Screen Negative, U Marijuana (THC) Screen Negative 11/12/18 22:40: WBC 13.9 H, RBC 3.84 L, Hgb 12.0 L, Hct 35.4 L, MCV 92.1, MCH 31.2, MCHC 33.8, RDW 13.5, Plt Count 297, MPV 8.6, Neut % (Auto) 72.2, Lymph % (Auto) 21.9, [place] % (Auto) 4.5, Eos % (Auto) 1.0, Baso % (Auto) 0.3, Neut # (Auto) 10.0 H, Lymph # (Auto) 3.1, [place] # (Auto) 0.6, Eos # (Auto) 0.1, Baso # (Auto) 0.0 11/12/18 22:40: PT 9.4, INR 0.90, APTT 28.4, Fibrinogen 423, D-Dimer 877 H* 11/12/18 22:40: Sodium 138, Potassium 3.1 L, Chloride 104, Carbon Dioxide 22, Anion Gap 15.1 H, BUN 4 L, Creatinine 0.41 L, Estimated Creat Clear 268, Estimated GFR 191, Est GFR ( Amer) 231, Glucose 90, Uric Acid 3.3, Calcium 9.2, AST 13 L, ALT 10 L 11/12/18 22:40: Blood Type O Positive, Antibody Screen Negative I & O for Last 24 hours: Intake & Output 11/10/18 11/11/18 11/12/18 11/13/18 11:59 11:59 11:59 11:59 Weight 177 lb
--- NOTE | 2018-11-13 12:32 | Progress Note ---
Internal Medicine - PN: Subj *Date: 11/13/18 *Time: 12:32 (Cervix now completely effaced, 8 cm, 0 vertex.) Exam Vital signs and Labs for Last 24 Hours: Temp Pulse Resp BP Pulse Ox 98.4 F 104 H 18 160/89 H 98 11/12/18 20:38 11/12/18 20:38 11/12/18 20:38 11/12/18 20:38 11/12/18 20:38 Laboratory Results - last 24 hr 11/12/18 20:13: Urine Color Yellow, Urine Appearance Clear, Urine pH 6.0, Ur Specific [place] >= 1.030, Urine Protein Negative, Urine Glucose (UA) Negative, Urine Ketones Negative, Urine Blood Trace-i, Urine Nitrate Negative, Urine Bilirubin Negative, Urine Urobilinogen 0.2, Ur Leukocyte Esterase 2+ A, Urine WBC 10-20, Ur Squamous Epith Cells 3-5, Urine Bacteria Trace 11/12/18 20:13: Urine Opiates Screen Negative, Urine Methadone Screen Negative, Ur Barbituates Screen Negative, Ur Phencyclidine Scrn Negative, Ur Amphetamines Screen Negative, U Benzodiazepines Scrn Negative, Urine Cocaine Screen Negative, U Marijuana (THC) Screen Negative 11/12/18 22:40: WBC 13.9 H, RBC 3.84 L, Hgb 12.0 L, Hct 35.4 L, MCV 92.1, MCH 31.2, MCHC 33.8, RDW 13.5, Plt Count 297, MPV 8.6, Neut % (Auto) 72.2, Lymph % (Auto) 21.9, [place] % (Auto) 4.5, Eos % (Auto) 1.0, Baso % (Auto) 0.3, Neut # (Auto) 10.0 H, Lymph # (Auto) 3.1, [place] # (Auto) 0.6, Eos # (Auto) 0.1, Baso # (Auto) 0.0 11/12/18 22:40: PT 9.4, INR 0.90, APTT 28.4, Fibrinogen 423, D-Dimer 877 H* 11/12/18 22:40: Sodium 138, Potassium 3.1 L, Chloride 104, Carbon Dioxide 22, Anion Gap 15.1 H, BUN 4 L, Creatinine 0.41 L, Estimated Creat Clear 268, Estimated GFR 191, Est GFR ( Amer) 231, Glucose 90, Uric Acid 3.3, Calcium 9.2, AST 13 L, ALT 10 L 11/12/18 22:40: Blood Type O Positive, Antibody Screen Negative I & O for Last 24 hours: Intake & Output 11/11/18 11/12/18 11/13/18 11/14/18 11:59 11:59 11:59 11:59 Weight 177 lb
--- NOTE | 2018-11-13 14:14 | Progress Note ---
Internal Medicine - PN: Subj *Time: 14:13 (Cervix complete, complete, +2) Exam Vital signs and Labs for Last 24 Hours: Temp Pulse Resp BP Pulse Ox 98.4 F 104 H 18 160/89 H 98 11/12/18 20:38 11/12/18 20:38 11/12/18 20:38 11/12/18 20:38 11/12/18 20:38 Laboratory Results - last 24 hr 11/12/18 20:13: Urine Color Yellow, Urine Appearance Clear, Urine pH 6.0, Ur Specific [place] >= 1.030, Urine Protein Negative, Urine Glucose (UA) Negative, Urine Ketones Negative, Urine Blood Trace-i, Urine Nitrate Negative, Urine Bilirubin Negative, Urine Urobilinogen 0.2, Ur Leukocyte Esterase 2+ A, Urine WBC 10-20, Ur Squamous Epith Cells 3-5, Urine Bacteria Trace 11/12/18 20:13: Urine Opiates Screen Negative, Urine Methadone Screen Negative, Ur Barbituates Screen Negative, Ur Phencyclidine Scrn Negative, Ur Amphetamines Screen Negative, U Benzodiazepines Scrn Negative, Urine Cocaine Screen Negative, U Marijuana (THC) Screen Negative 11/12/18 22:40: WBC 13.9 H, RBC 3.84 L, Hgb 12.0 L, Hct 35.4 L, MCV 92.1, MCH 31.2, MCHC 33.8, RDW 13.5, Plt Count 297, MPV 8.6, Neut % (Auto) 72.2, Lymph % (Auto) 21.9, [place] % (Auto) 4.5, Eos % (Auto) 1.0, Baso % (Auto) 0.3, Neut # (Auto) 10.0 H, Lymph # (Auto) 3.1, [place] # (Auto) 0.6, Eos # (Auto) 0.1, Baso # (Auto) 0.0 11/12/18 22:40: PT 9.4, INR 0.90, APTT 28.4, Fibrinogen 423, D-Dimer 877 H* 11/12/18 22:40: Sodium 138, Potassium 3.1 L, Chloride 104, Carbon Dioxide 22, Anion Gap 15.1 H, BUN 4 L, Creatinine 0.41 L, Estimated Creat Clear 268, Estimated GFR 191, Est GFR ( Amer) 231, Glucose 90, Uric Acid 3.3, Calcium 9.2, AST 13 L, ALT 10 L 11/12/18 22:40: Blood Type O Positive, Antibody Screen Negative I & O for Last 24 hours: Intake & Output 11/11/18 11/12/18 11/13/18 11/14/18 11:59 11:59 11:59 11:59 Weight 177 lb
--- NOTE | 2018-11-13 15:01 | Procedure Note ---
- Delivery Note Delivery Date:: 11/13/18 Delivery Time:: 14:26 Anesthesia Type: Epidural Was labor medically induced?: Yes Induction method: per pitocin protocol Gestational age (weeks): 38 Infant delivered prior to 39 weeks?: Yes Justification for early elective delivery:: Pre-eclampsia Gender: Female at 1 minute: 8 at 5 minutes: 9 Suction Catheter Type: Bibiana AF:: slight meconium tinge Delivery Procedure:: 23-year-old 3, now para 2, Ab1 white female was admitted at 38-3/7 weeks on 11/12/2018 at 2000 hrs. with irregular contractions and pelvic pressure. Her blood pressure was 156/89 and she had been followed for intermittent hypertension and tachycardia during the latter course of her . DTRs were normal. D-dimers were approximately 900. Her cervix was 2 cm dilated at the time of admission. The patient was started on intravenous antibiotics because of a urinary tract infection. She was observed overnight and intravenous Pitocin was begun on the morning of 11/13/2018. The patient labored under labor epidural which worked incompletely. An amniotomy revealed slight meconium tinged fluid. There was a cord pattern which was treated with amnioinfusion, successfully. There was no meconium at the time of delivery. The patient went steadily to completion and delivered spontaneously, without an episiotomy, at 1426. There was no meconium noted at the time of delivery. There was a nuchal cord x2 which was easily reduced. The baby's nasal and oropharynx were bulb suction, and the baby cried spontaneously on the perineum, as was delivered. Cord was clamped and cut, 3 vessels were noted to be within the cord, and cord blood was obtained. The cord pH was 7.40. Baby was handed into the arms of the attending RN, who assigned Apgars of 8 at 1 minute and 9 at 5 minutes to this 5 pound 4 ounce, 17.75 inch female infant, born at 1426. The baby was subsequently evaluated by the masonry teacher, Dr. Vargas. The placenta delivered spontaneously, intact, at 1428, making the total time in labor 20 hours and 28 minutes. The uterus was inspected and was felt to be clean, and was involuting well, with IV Pitocin running. There were no lacerations. The rectovaginal septum was intact at the close of the procedure. The patient tolerated the procedure well, and was recovered in excellent condition. Her blood type is O+. Her rubella titer is immune. She plans to breast-feed. It should be noted that after her epidural was placed, her blood pressure remained in the normal range throughout her labor. Placental Delivery Description: Spontaneous
[2018-11-14 06:27] LABS: Hematocrit 32.6 % (37.0-47.0); Hemoglobin 10.8 g/dL (12.2-16.2)
--- NOTE | 2018-11-14 06:32 | Progress Note ---
Internal Medicine - PN: Subj *Date: 11/14/18 *Time: 06:31 (This is day #1. The patient is afebrile. Her vital signs are stable. She is normotensive. DTRs are normal. Abdomen soft. Lochia normal. Uterine fundus involuting well. Nursing well. Impression: Stable.) Exam Vital signs and Labs for Last 24 Hours: Temp Pulse Resp BP Pulse Ox 98.4 F 104 H 18 160/89 H 98 11/12/18 20:38 11/12/18 20:38 11/12/18 20:38 11/12/18 20:38 11/12/18 20:38 Laboratory Results - last 24 hr 11/13/18 14:39: Cord ABG pH 7.40 11/14/18 06:12: Hgb 10.8 L, Hct 32.6 L I & O for Last 24 hours: Intake & Output 11/11/18 11/12/18 11/13/18 11/14/18 11:59 11:59 11:59 11:59 Weight 177 lb Microbiology Reports for the Last 24 Hours: Microbiology 11/12/18 20:13 Urine,Clean Catch Urine Culture - Preliminary
--- NOTE | 2018-11-14 15:08 | Progress Note ---
Internal Medicine - PN: Subj *Date: 11/14/18 *Time: 15:08 (The patient is afebrile. Her vital signs are stable. Blood pr essure normal. DTRs normal. Hemoglobin 10.8 g, but clinically stable. Doing well.) Exam Vital signs and Labs for Last 24 Hours: Temp Pulse Resp BP Pulse Ox 98.4 F 104 H 18 160/89 H 98 11/12/18 20:38 11/12/18 20:38 11/12/18 20:38 11/12/18 20:38 11/12/18 20:38 Laboratory Results - last 24 hr 11/14/18 06:12: Hgb 10.8 L, Hct 32.6 L I & O for Last 24 hours: Intake & Output 11/12/18 11/13/18 11/14/18 11/15/18 11:59 11:59 11:59 11:59 Weight 177 lb Microbiology Reports for the Last 24 Hours: Microbiology 11/12/18 20:13 Urine,Clean Catch Urine Culture - Final Multiple organisms, suggests contamination.
--- NOTE | 2018-11-15 07:27 | Progress Note ---
Internal Medicine - PN: Subj *Date: 11/15/18 *Time: 07:26 (This is day #2. The patient is afebrile blood pressure 126/68. Lochia normal. Uterine fundus involuting well. She will be discharged today.) Exam Vital signs and Labs for Last 24 Hours: Temp Pulse Resp BP Pulse Ox 98.4 F 104 H 18 160/89 H 98 11/12/18 20:38 11/12/18 20:38 11/12/18 20:38 11/12/18 20:38 11/12/18 20:38 I & O for Last 24 hours: Intake & Output 11/12/18 11/13/18 11/14/18 11/15/18 11:59 11:59 11:59 11:59 Weight 177 lb Microbiology Reports for the Last 24 Hours: Microbiology 11/12/18 20:13 Urine,Clean Catch Urine Culture - Final Multiple organisms, suggests contamination.
--- NOTE | 2018-11-15 07:31 | Discharge Summary ---
General - General Admission date:: 11/12/18 Discharge date: 11/15/18 (This 23-year-old 3, now para 2, Ab1 white female was admitted at 38-3/7 weeks with irregular contractions and signs and symptoms of mild preeclampsia. Her blood pressure on admission was 165/89. She was observed overnight and her cervix changed from 2 to 3 cm by morning. At that time she was augmented with intravenous Pitocin, and labored under labor epidural, which worked well. On initial amniotomy, there was slight meconium- tinged fluid, but this was not seen subsequently. She went slowly but steadily to completion and delivered spontaneously, without an episiotomy, at 1426 on 11/13/2018. There was a nuchal cord x2, which was easily reduced. The cord pH was 7.40. The baby was an 8/9, 5 pound 14 ounce, 17.75 inch female , who is breast-feeding and is done well. , the patient is done well. Her blood pressure has normalized (currently 124/68), and her DTRs are normal. Lochia is normal. Her uterine fundus has involuted well. Her abdomen is soft. DTRs are normal. She is not a smoker. She is discharged home on the third hospital and second day on iron and vitamins, and on Tylenol and Motrin, as needed for pain. She is given appropriate instructions as to diet and exercise, and she is to return the office in 2 weeks for follow-up. Blood type is O+. Her rubella titer is immune. Her hemoglobin is 10.8 g, but she is clinically stable.) Objective Vital signs: Temp Pulse Resp BP Pulse Ox 98.4 F 104 H 18 160/89 H 98 11/12/18 20:38 11/12/18 20:38 11/12/18 20:38 11/12/18 20:38 11/12/18 20:38 Discharge Plan - Patient Discharge Instructions - Follow up Plan Home Medications: Home Medications Medication Instructions Recorded Confirmed Type 1 tab PO DAILY 09/22/18 11/13/18 History vitamin,calcium,bzldwrvr-shhw-uiobk acid tablet Labetalol HCl 100 mg PO TID 11/13/18 11/13/18 History Prescriptions/Medication Reconciliation: No Action vitamin,calcium,xgqknrhr-fhjw-vxayn acid tablet 1 tab PO DAILY Labetalol HCl 100 mg PO TID - Problem Reconciliation Problems Reviewed?: Yes
[2018-11-15 08:09] VITALS: BP 134/80
== END 2018-11-15 09:55 | disposition home or self-care (01) | DRG 807 ==
LOC: OBOUT 20:08 → OB 20:09
PROVIDERS: ADMIT Obstetrics & Gynecology; ATTEND Obstetrics & Gynecology
CPT/HCPCS: 36415; 59025; 80048; 80305; 81001; 82800; 84450; 84460; 84550; 85014; 85018; 85025; 85378; 85384; 85610; 85730; 86850; 87086; 96360; C1758; J0290; J2405

== ENCOUNTER → 2019-12-18 16:23 | Outpatient (CLI) | payer OTHER, SELFPAY ==
--- NOTE | 2019-12-18 16:33 | XR_ITS ---
PROCEDURE: XR CHEST 2V CLINICAL HISTORY: RT SIDED CHEST PAIN COMPARISON: CT CTAC CTA-CHEST from 01/27/2016 CR CXR CHEST(2 VIEWS-NOT PORTABLE) from 01/27/2016 CR CXR1 CHEST-PORTABLE from 04/12/2016 CR CXR2V XR chest 2V from 04/05/2017 FINDINGS: The cardiomediastinal silhouette and pulmonary vascularity are within normal limits. The lungs are clear without infiltrates, suspicious nodules, or pleural effusions. Increased density overlies the the lower aspect of T6 and may be due to an overlying osteophyte having a similar appearance on 04/05/2017 IMPRESSION: No change with no acute finding Dictated by: Alberto Granger MD 12/18/2019 19:42 Alberto Granger MD in [place] 12/18/2019 19:42
== END ==
PROVIDERS: PCP Family Medicine; Visit Provider Family Medicine
DX: R07.9 Chest pain, unspecified (principal)
CPT/HCPCS: 71046

== ENCOUNTER → 2019-12-21 08:29 | Outpatient (CLI) | payer OTHER, SELFPAY ==
--- NOTE | 2019-12-21 08:32 | US_ITS ---
PROCEDURE: US ABDOMEN LIMITED CLINICAL INDICATION: ABD PAIN COMPARISON: US RUQ US RUQ-(ABD LTD)1ORGAN/QUAD/FU from 07/23/2016 FINDINGS: PANCREAS: Unremarkable. No obvious mass or abnormal fluid collection. No ductal dilatation LIVER: No focal liver lesions demonstrated. Homogeneous echogenicity. No intrahepatic biliary ductal dilatation evident. There is appropriate direction of blood flow within a non dilated portal vein RIGHT KIDNEY: Unremarkable. Normal size and echogenicity. No hydronephrosis GALLBLADDER: No gallstones, gallbladder wall thickening, pericholecystic fluid, or biliary dilatation. IMPRESSION: Unremarkable limited abdominal ultrasound as detailed above disc Dictated by: Alberto Granger MD 12/21/2019 15:48 Alberto Granger MD in [facility] 12/21/2019 15:48
== END ==
PROVIDERS: PCP Family Medicine; Visit Provider Family Medicine
DX: R10.11 Right upper quadrant pain (principal)
CPT/HCPCS: 76705

== ENCOUNTER 2021-01-19 11:41 | Emergency (ER) | payer OTHER, SELFPAY ==
[2021-01-19 12:00] VITALS: BP 146/91; PULSE 91; RESP 21; TEMP 36.8; O2SAT 98; BMI 27.4
[2021-01-19 12:14] LABS: UTC Strep Screen (Rapid) Negative (Negative)
--- NOTE | 2021-01-19 12:22 | HMH.EDUTC ---
[facility] [place] Disposition Clinical Impression: URI (upper respiratory infection) Qualifiers: URI type: unspecified URI Qualified Code(s): J06.9 - Acute upper respiratory infection, unspecified Disposition: Home, Self-Care Condition on Discharge: Good Instructions: Sore Throat, DI for Sinusitis Additional Instructions: *Monitor Temp, Over the counter Motrin or Tylenol as directed/as needed Tylenol every 4 hours and Motrin every 6 hours (as long as your family doctor has told you that you can take it) for fever or pain. and straight to ER if unable to lower temp less than 101.0 after medication given *Warm salt water gargles may help to soothe the throat *Throat Lozenges *Warm fluids like tea with honey may help to soothe the throat *Sleep elevated *Humidifier/Vaporizer *Flonase 2 sprays in each nostril daily but be aware that it may take 2-3 days before you notice improvement Your throat swab was sent for culture. Those results are typically sent to your primary care. Be sure to follow up in 2-3 days with your family doctor/primary care physician if no improvement so they can review those result and treat if necessary. If you don?t have a primary care doctor, I recommend you get one but in the mean time, you will have to return to a walk in clinic Follow up IMMEDIATELY for new or worsening symptoms or no Noticeable improvement over the next 48-72 hours. 911 for difficulty breathing or swallowing You were tested for today for COVID19 your test result should be back in the next 24-48 hours, you may Check your results on the [facility] My Health Portal if you have issues logging in you may call for assistance or pick your results up in person at the Health Information office from 8am 430pm You was given a handout with instructions for Self Quarantine and Self isolation for while you wait on test results and what to do if they are positive If you are positive the Health Dept will be contacting you also Prescriptions: methylPREDNISolone [Medrol 4mg tab] 4 mg PO DIRECTED #21 tab Transmission Status: Pending to [facility]cue # Azithromycin [Z-Tenzin 250mg Tab] 250 mg PO DIRECTED #6 tab Transmission Status: Pending to [facility] # Referrals: Faheem Vargas MD [Primary Care Provider] - As needed Forms: Work/School Release Time of Disposition: 13:02 Medical Decision Making - Berry Inquiry Pt receiving controlled substance: No Berry was queried for this patient: No Vital Signs: 01/19/21 12:00 Temperature 98.3 F Temperature Source Oral Pulse Rate [Right Brachial] 91 H Respiratory Rate 21 Blood Pressure [Right Arm] 146/91 H Blood Pressure Mean [Right Arm] 109 Blood Pressure Source [Right Arm] Automatic Cuff Blood Pressure Position [Right Arm] Sitting 02 Sat by Pulse Oximetry 98 Oxygen Delivery Method Room Air - Lab Data Lab results reviewed: Yes: I reviewed the patient's lab results. Lab Results 01/19/21 12:00: Strep Scn Rapid Clinic Negative 01/19/21 12:37: Tst Clinic Negative Orders (Tests/Meds): ORDERS Category Date Time Status Covid-19 Nasal PCR ([facility]) Routine Lab 01/19/21 12:40 Received Strep Screen Confirmation Stat Micro 01/19/21 12:00 Received H UTC HPI - General Stated complaint: sore throat, cough, h/a, no taste/smell Time Seen by Provider: 01/19/21 12:22 Mode of Arrival: Ambulatory Source of Information: Patient Limitations: No Limitations Description of Symptoms (Recalled from Triage Doc. by RN): PATIENT C/O SORE THROAT X 3 DAYS HEENT Symptoms (Recalled from RN notes): Yes Resp Symptoms (Recalled from RN notes): No Skin Symptoms (Recalled from RN notes): No MS Symptoms (Recalled from RN notes): No Functional Status (Recalled from RN notes): WNL - History of Present Illness Provider Complaint: Patient states that she has been having sore throat, sinus congestion, and pain in her ears States that she has been around several kids that has had strep t
[2021-01-19 12:44] LABS: UTC Pregnancy Test, Urine Negative (Negative)
[2021-01-19 13:07] VITALS: BP 146/91; PULSE 91; RESP 21; TEMP 36.8; O2SAT 98
--- NOTE | 2021-01-21 14:45 | PC.NURSE ---
pt. notified of positive test result.
== END 2021-01-19 13:15 | disposition home or self-care (01) ==
PROVIDERS: Emergency Provider Nurse Practitioner; PCP Family Medicine
DX: U07.1 COVID-19 (principal); J06.9 Acute upper respiratory infection, unspecified; K21.9 Gastro-esophageal reflux disease without esophagitis; R00.2 Palpitations
CPT/HCPCS: 81025; 87880; 99203; C9803; G0463; U0003; U0005

== ENCOUNTER 2021-03-11 13:55 | Emergency (ER) | payer OTHER, SELFPAY ==
[2021-03-11 14:25] VITALS: BP 138/90; PULSE 96; RESP 18; TEMP 37.1; O2SAT 100; BMI 26.6
[2021-03-11 14:43] LABS: UTC Influenza A Antigen Negative (Negative); UTC Influenza B Antigen Negative (Negative)
[2021-03-11 14:44] LABS: UTC Strep Screen (Rapid) Negative (Negative)
--- NOTE | 2021-03-11 14:58 | HMH.EDUTC ---
[facility] Disposition Clinical Impression: Viral syndrome Nausea & vomiting Qualifiers: Vomiting type: unspecified Qualified Code(s): R11.2 - Nausea with vomiting, unspecified Disposition: Home, Self-Care Condition on Discharge: Good Instructions: DI for Viral Syndrome, Nausea and Vomiting-Adult Additional Instructions: Drink extra fluids with and between meals. If you have difficulty drinking, try very small amounts of water or suck on ice chips. ? Avoid fruit juices, as these do not replace minerals and can actually increase diarrhea. ? Children and adults can use sports drinks to replenish electrolytes. Younger children and infants should use products formulated for children, like oral rehydration solutions. ? Eat food in small amounts and let your stomach recover. ? Get lots of rest. You may feel tired or weak. ? No greasy or fried foods for the next 24-48 hours BRAT diet Bananas Rice Apples and [place] ? Make sure to drink plenty of liquids ? Return if needed ? Straight to ER if any life threatening symptoms ? Follow up with family doctor in the next 48-72 hours if no improvement or any worsening of symptoms Prescriptions: Ondansetron [Zofran 4mg ODT] 4 mg PO TIDP PRN #12 tab PRN Reason: Vomiting Transmission Status: Pending to [facility] #[id number] Referrals: Faheem Vargas MD [Primary Care Provider] - As needed Forms: Work/School Release Medical Decision Making - Berry Inquiry Pt receiving controlled substance: No Berry was queried for this patient: No Vital Signs: 03/11/21 14:25 Temperature 98.7 F Temperature Source Oral Pulse Rate [Right Brachial] 96 H Respiratory Rate 18 Blood Pressure [Right Arm] 138/90 Blood Pressure Mean [Right Arm] 106 Blood Pressure Source [Right Arm] Automatic Cuff Blood Pressure Position [Right Arm] Sitting 02 Sat by Pulse Oximetry 100 Oxygen Delivery Method Room Air - Lab Data Lab results reviewed: Yes: I reviewed the patient's lab results. Lab Results 03/11/21 14:42: Strep Scn Rapid Clinic Negative 03/11/21 14:42: Influenza Type A Ag Negative, Influenza Type B Ag Negative Orders (Tests/Meds): ORDERS Category Date Time Status Upper Respiratory Panel, PCR Stat Lab 03/11/21 15:04 Ordered Strep Screen Confirmation Routine Micro 03/11/21 14:42 Received [facility] HPI - General Stated complaint: sorethroat,cough,headache Time Seen by Provider: 03/11/21 14:58 Mode of Arrival: Ambulatory Source of Information: Patient Limitations: No Limitations Description of Symptoms (Recalled from Triage Doc. by RN): PATIENT C/O HEADACHE, VOMITING, FEVER, CHILLS, AND SORE THROAT THAT STARTED YESTERDAY HEENT Symptoms (Recalled from RN notes): Yes Resp Symptoms (Recalled from RN notes): No Skin Symptoms (Recalled from RN notes): No MS Symptoms (Recalled from RN notes): No Functional Status (Recalled from RN notes): WNL - History of Present Illness Provider Complaint: Patient states that she has been having body aches, chills, fever, headache, N/V States that she had COVID around the first on Dec and feels like she may have the flu States that she is feeling achy all over and having trouble keeping anything down - Related Data Previous Rx's Medication Instructions Recorded Ondansetron [Zofran 4mg ODT] 4 mg PO TIDP PRN #12 tab 03/11/21 Allergies Allergy/AdvReac Type Severity Reaction Status Date / Time No Known Allergies Allergy Verified 04/13/19 14:15 - Worker's Comp Is this a Worker's Comp case?: No [facility] History - Hepatitis A Screen Drug use history?: No High risk sexual behaviors?: No History of sexually transmitted infection?: No Currently employed?: No Childcare worker?: No Do you have indoor plumbing?: Yes Do you have electricity?: Yes Attestation statement:: This patient has been screened for Hepatitis A risk factors. I have reviewed the patient's past medical history: Yes Medical History: Reports:: Gastroesophageal Refl
[2021-03-11 15:35] LABS: Adenovirus,PCR Not Detected (NotDetected); Bordetella Pertussis Not Detected (NotDetected); Chlamydophila Pneumoniae, PCR Not Detected (NotDetected); Coronavirus 229E Not Detected (NotDetected); Coronavirus NL63 Not Detected (NotDetected); Coronavirus OC43 Not Detected (NotDetected); Coronovirus HKU1,PCR Not Detected (NotDetected); Human Metapneumovirus Not Detected (NotDetected); Influenza A, PCR Not Detected (NotDetected); Influenza AH1, 2009 Not Detected (NotDetected); Influenza AH1, PCR Not Detected (NotDetected); Influenza AH3,PCR Not Detected (NotDetected); Influenza B, PCR Not Detected (NotDetected); Mycoplasma Pneumoniae, PCR Not Detected (NotDetected); Parainfluenza 1, PCR Not Detected (NotDetected); Parainfluenza 2, PCR Not Detected (NotDetected); Parainfluenza 3, PCR Not Detected (NotDetected); Parainfluenza 4, PCR Not Detected (NotDetected); Respiratory Syncytial Virus Not Detected (NotDetected); Rhinovirus/Enterovirus Not Detected (NotDetected)
[2021-03-11 15:37] LABS: UTC Pregnancy Test, Urine Negative (Negative)
[2021-03-11 15:38] VITALS: BP 138/90; PULSE 96; RESP 18; TEMP 37.1; O2SAT 100
== END 2021-03-11 15:43 | disposition home or self-care (01) ==
PROVIDERS: Emergency Provider Nurse Practitioner; PCP Family Medicine
DX: B34.9 Viral infection, unspecified (principal); Z20.822 Contact with and (suspected) exposure to COVID-19; K21.9 Gastro-esophageal reflux disease without esophagitis; R00.2 Palpitations
CPT/HCPCS: 81025; 87486; 87581; 87632; 87798; 87804; 87880; 99203; G0463

== ENCOUNTER 2021-04-19 09:58 | Emergency (ER) | payer OTHER, SELFPAY ==
[2021-04-19 10:15] VITALS: BP 122/77; PULSE 108; RESP 20; TEMP 36.9; O2SAT 100; BMI 26.9
--- NOTE | 2021-04-19 10:34 | HMH.EDUTC ---
[facility] [place] Condition on Discharge: Good Time of Disposition: 13:37 <Chong Miller - Last Filed: 04/19/21 13:35> Condition on Discharge: Fair <Judd Oshea - Last Filed: 04/21/21 03:30> Clinical Impression: Viral syndrome Fatigue Qualifiers: Fatigue type: unspecified Qualified Code(s): R53.83 - Other fatigue Migraine Qualifiers: Migraine type: without aura Status migrainosus presence: without status migrainosus Intractability: not intractable Qualified Code(s): G43.009 - Migraine without aura, not intractable, without status migrainosus Disposition: Home, Self-Care Instructions: DI for Migraine Prescriptions: Ibuprofen [Ibuprofen 800mg Tablet] 800 mg PO TIDP PRN #20 tab PRN Reason: Moderate Pain Transmission Status: Received by [id number] Ondansetron [Zofran 4mg ODT] 4 mg PO BIDP PRN #10 tab PRN Reason: Nausea Transmission Status: Received by [id number] Referrals: Faheem Vargas MD [Primary Care Provider] - Medical Decision Making - Lab Data Result diagrams: 04/19/21 12:20 04/19/21 12:20 - CT Data CT Scan: Head Time Received: 13:[address] Reviewed: Yes: I have reviewed the patient's CT results, I have viewed the radiologist's interpretation Preliminary Findings: Normal/NAD - Reevaluation(s) Time: 13:35 <Chong Miller - Last Filed: 04/19/21 13:35> - Medical Records Medical records reviewed: No: I reviewed the patient's medical records. - Berry Inquiry Pt receiving controlled substance: No - Lab Data Result diagrams: 04/19/21 12:20 04/19/21 12:20 <Judd Oshea - Last Filed: 04/21/21 03:30> Vital Signs: 04/19/21 10:15 04/19/21 11:29 04/19/21 12:00 Temperature 98.4 F 99 F Temperature Source Oral Oral Pulse Rate 88 Pulse Rate [Left] 108 H 78 Respiratory Rate 20 20 18 Blood Pressure 121/80 Blood Pressure [Right Arm] 122/77 115/62 Blood Pressure Mean 93 Blood Pressure Mean [Right Arm] 92 79 Blood Pressure Position Blood Pressure Position [Right Arm] Sitting 02 Sat by Pulse Oximetry 100 96 100 Oxygen Delivery Method Room Air 04/19/21 14:39 Temperature 98 F Temperature Source Oral Pulse Rate 62 Pulse Rate [Left] Respiratory Rate 18 Blood Pressure 123/68 Blood Pressure [Right Arm] Blood Pressure Mean Blood Pressure Mean [Right Arm] Blood Pressure Position Sitting Blood Pressure Position [Right Arm] 02 Sat by Pulse Oximetry Oxygen Delivery Method Room Air - Lab Data Lab Results 04/19/21 10:48: Strep Scn [facility] Negative 04/19/21 11:43: Urine Color Yellow, Urine Appearance Clear, Urine pH 6.0, Ur Specific [facility] 1.020, Urine Protein Negative, Urine Glucose (UA) Negative, Urine Ketones Negative, Urine Blood 1+, Urine Nitrate Negative, Urine Bilirubin Negative, Urine Urobilinogen 0.2, Ur Leukocyte Esterase Negative, Urine RBC 3-5, Urine WBC 3-5, Ur Squamous Epith Cells 3-5, Urine Bacteria None 04/19/21 11:43: Urine HCG, Qual Negative 04/19/21 11:43: SARS-CoV-2 (PCR) Not detected, Influenza A Untype (PCR) Not detected, Influenza Type B (PCR) Not detected 04/19/21 12:20: WBC 5.9, RBC 5.08, Hgb 15.5, Hct 46.2, MCV 90.9, MCH 30.5, MCHC 33.5, RDW 12.8, Plt Count 317, MPV 7.3 L, Neut % (Auto) 65.5, Lymph % (Auto) 26.3, Hayes % (Auto) 6.2, Eos % (Auto) 1.2, Baso % (Auto) 0.7, Neut # (Auto) 3.9, Lymph # (Auto) 1.6, Hayes # (Auto) 0.4, Eos # (Auto) 0.1, Baso # (Auto) 0.0 04/19/21 12:20: Sodium 136, Potassium 4.1, Chloride 103, Carbon Dioxide 28, Anion Gap 9.1, BUN 8, Creatinine 0.70, Estimated Creat Clear 141, Estimated GFR 101, Est GFR ( Amer) 122, Glucose 86, Calcium 8.6, Total Bilirubin 0.7, AST 22, ALT 18, Alkaline Phosphatase 74, Total Protein 7.3, Albumin 4.3, Globulin 3.0, Albumin/Globulin Ratio 1.4 Orders (Tests/Meds): ED MEDICATIONS Discontinued Medications Generic Name Dose Route Start Last Admin Trade Name Freq PRN Reason Stop Dose Admin Sodium Chloride 1,000 mls @ 999 mls/hr 04/19/
[2021-04-19 10:49] LABS: UTC Strep Screen (Rapid) Negative (Negative)
--- NOTE | 2021-04-19 11:27 | ECG_ITS ---
APPROVED REPORT Exam: Resting ECG HR:83 bpm ECG Measurements Heart Rate [address] 144 P 46 QRSd 81 QRS 58 QT 331 T 12 QTc 371 Conclusion SINUS RHYTHM NORMAL ECG UNCONFIRMED REPORT Electronically signed by : Zbigniew Molina MD 04/19/2021 18:38:56
[2021-04-19 11:29] VITALS: BP 115/62; PULSE 78; RESP 20; TEMP 37.2; O2SAT 96; BMI 26.9
[2021-04-19 11:31] VITALS: BMI 26.9
--- NOTE | 2021-04-19 11:36 | PC.NURSE ---
pt in room
--- NOTE | 2021-04-19 11:38 | PC.NURSE ---
pt up to the bathroom at this time.
--- NOTE | 2021-04-19 11:43 | PC.NURSE ---
pt back in bed from bathroom, hooked back up to cardiac monitoring and vital signs.
--- NOTE | 2021-04-19 11:49 | PC.NURSE ---
urine and covid swab collected and sent to lab.
[2021-04-19 11:56] LABS: Coronavirus 19, PCR Not Detected (NotDetected); Influenza A, PCR Not Detected (NotDetected); Influenza B, PCR Not Detected (NotDetected); Microscopic, Urine URINE MICROSCOPIC (MICROSCOPIC)
[2021-04-19 11:57] LABS: Appearance,Urine CLEAR (Clear); Bilirubin,Urine Negative (Negative); Blood, Urine 1+ (Negative); Color,Urine YELLOW (Yellow); Glucose,Urine (UA) Negative (Negative); Ketones,Urine Negative (Negative); Leukocyte Esterase,Urine Negative (Negative); Nitrate,Urine Negative (Negative); Protein,Urine Negative (Negative); Urobilinogen,Urine 0.2 EU/dl (0.2)
[2021-04-19 12:00] VITALS: BP 121/80; PULSE 88; RESP 18; O2SAT 100
[2021-04-19 12:02] LABS: Urine Pregnancy, HCG Qual. Negative (Negative)
--- NOTE | 2021-04-19 12:36 | CT_ITS ---
PROCEDURE INFORMATION: Exam: CT Head Without Contrast Exam date and time: 04/19/2021 12:36 PM Age: 25 years old Clinical indication: Weakness, extremity and other: Headache; Left; Additional info: Headache, weakness TECHNIQUE: Imaging protocol: Computed tomography of the head without contrast. Radiation optimization: All CT scans at this facility use at least one of these dose optimization techniques: automated exposure control; mA and/or kV adjustment per patient size (includes targeted exams where dose is matched to clinical indication); or iterative reconstruction. COMPARISON: No relevant prior studies available. FINDINGS: Brain: No hemorrhage. Unremarkable white matter. Streak artifact limits assessment of the temporal lobes. No mass effect. Cerebral ventricles: No ventriculomegaly. Paranasal sinuses: Visualized sinuses are unremarkable. No fluid levels. Mastoid air cells: Visualized mastoid air cells are well aerated. Bones/joints: No acute fracture. Soft tissues: Unremarkable. IMPRESSION: 1. There is no acute intracranial abnormality. 2. If the patient's symptoms persist, follow-up MRI may be indicated.
[2021-04-19 12:51] LABS: Basophils % 0.7 % (0.1-2.0); Chloride 103 mmol/L (98-107); Eosinophils # 0.1 K/mm3 (0.0-0.4); Eosinophils % 1.2 % (0.1-12.0); Hematocrit 46.2 % (37.0-47.0); Hemoglobin 15.5 g/dL (12.2-16.2); Lymphocytes # 1.6 K/mm3 (0.7-4.5); Lymphocytes % 26.3 % (10-50); Mean Corpuscular HGB Conc 33.5 g/dL (31.8-35.4); Mean Corpuscular Hemoglobin 30.5 pg (27.0-31.2); Mean Corpuscular Volume 90.9 fl (81-99); Mean Platelet Volume 7.3 fl (7.4-10.4); Monocytes # 0.4 K/mm3 (0.1-1.0); Monocytes % 6.2 % (1.7-9.3); Neutrophils # 3.9 K/mm3 (1.8-7.8); Neutrophils % 65.5 % (37.0-80.0); Platelet Count 317 K/mm3 (142-424); Potassium 4.1 mmoL/L (3.5-5.1); Red Blood Count 5.08 M/mm3 (4.20-5.40); Red Cell Distribution Width 12.8 % (11.5-17.5); Sodium 136 mmol/L (136-145); White Blood Count 5.9 K/mm3 (4.8-10.8)
[2021-04-19 12:53] LABS: Alanine Aminotransferase 18 U/L (12-78); Aspartate Amino Transferase 22 U/L (14-36); Blood Urea Nitrogen 8 mg/dl (7-17); Creatinine Clearance Estimated 141 mL/min (50-200); Estimated Glomerular Filt Rate 101 ml/min (>60); GFR (African American) 122 ML/MIN (>60)
[2021-04-19 12:54] LABS: Albumin Level 4.3 g/dl (3.5-5.0); Albumin/Globulin Ratio 1.4 (1.1-1.8); Alkaline Phosphatase 74 U/L (38-126); Bilirubin,Total 0.7 mg/dl (0.2-1.3); Calcium 8.6 mg/dl (8.4-10.2); Glucose 86 mg/dl (74-100); Total Protein,Serum 7.3 g/dl (6.3-8.2)
--- NOTE | 2021-04-19 12:55 | PC.NURSE ---
pt back from radiology; hooked back up to vital signs
[2021-04-19 13:06] LABS: Anion Gap 9.1 mEq/L (5-15); Carbon Dioxide 28 mmol/L (22.0-30.0)
[2021-04-19 14:39] VITALS: BP 123/68; PULSE 62; RESP 18; TEMP 36.6; O2SAT 98
== END 2021-04-19 14:40 | disposition home or self-care (01) ==
LOC: UTC 11:16 → ER 11:21
PROVIDERS: Emergency Medicine; Emergency Provider Nurse Practitioner Family; PCP Family Medicine
DX: G43.009 Migraine without aura, not intractable, without status migrainosus (principal); B34.9 Viral infection, unspecified
CPT/HCPCS: 70450; 80053; 81001; 81025; 85025; 87880; 93005; 96365; 96375; 99283; 99284; C9803; J2405; U0003; U0005

== ENCOUNTER → 2021-09-26 10:42 | Outpatient (CLI) | payer OTHER, SELFPAY ==
--- NOTE | 2021-09-26 11:02 | ECG_ITS ---
APPROVED REPORT Exam: Resting ECG HR:89 bpm ECG Measurements Heart Rate [address] 145 P 59 QRSd 86 QRS 52 QT 323 T 13 QTc 370 Conclusion SINUS RHYTHM POSSIBLE RIGHT VENTRICULAR CONDUCTION DELAY [RSR (QR) IN V1/V2] BORDERLINE ECG UNCONFIRMED REPORT Electronically signed by : Zbigniew Molina MD 09/27/2021 09:32:29
--- NOTE | 2021-09-26 11:14 | XR_ITS ---
FINAL REPORT CLINICAL HISTORY: NICOTINE USE, smoker, pre-op COMPARISON: December 18, 2019 FINDINGS: Two views of the chest were obtained. The heart size and pulmonary vascularity are within normal limits. The mediastinum is normal. No acute pulmonary abnormality is identified. There is no pneumothorax. The bony thorax is intact. IMPRESSION: No active cardiopulmonary disease. Reviewed, Interpreted and Dictated by Watson Rapp III, MD Transcribed by Adama Contreras Authenticated and [facility]
== END ==
PROVIDERS: PCP Family Medicine; Visit Provider Family Medicine
DX: Z01.810 Encounter for preprocedural cardiovascular examination (principal)
CPT/HCPCS: 71046; 93005

== ENCOUNTER → 2021-10-21 18:58 | Outpatient (CLI) | payer OTHER, SELFPAY ==
--- NOTE | 2021-10-21 19:13 | XR_ITS ---
PROCEDURE INFORMATION: Exam: XR Abdomen Exam date and time: 10/21/2021 7:06 PM Age: 26 years old Clinical indication: Other: Cramping; Additional info: Cramping x 1 year TECHNIQUE: Imaging protocol: Radiologic exam of the abdomen. Views: Frontal supine view of the abdomen. 1 View. COMPARISON: ABDPELW CT abdomen pelvis w con 11/19/2017 2:12 AM FINDINGS: Gastrointestinal tract: Moderate stool within the right abdomen. No bowel dilation. Bones/joints: Mild scoliosis. IMPRESSION: No acute findings.
== END ==
PROVIDERS: PCP Family Medicine; Visit Provider Nurse Practitioner Family
DX: R10.9 Unspecified abdominal pain (principal)
CPT/HCPCS: 74018

== ENCOUNTER 2022-02-10 19:38 | Emergency (ER) | payer OTHER, SELFPAY ==
[2022-02-10 19:38] VITALS: BP 131/101; PULSE 95; RESP 16; TEMP 36.9; O2SAT 100; BMI 26.6
[2022-02-10 20:00] VITALS: BP 120/83; PULSE 86; O2SAT 96
--- NOTE | 2022-02-10 20:08 | XR_ITS ---
PROCEDURE INFORMATION: Exam: XR Chest Exam date and time: 02/10/2022 8:17 PM Age: 26 years old Clinical indication: Pain; Left-sided; Additional info: Chest pain TECHNIQUE: Imaging protocol: Radiologic exam of the chest. Views: 2 views. COMPARISON: CR XR CHEST 2V 09/26/2021 11:16 AM FINDINGS: Lungs: No acute pulmonary findings. No pulmonary consolidation. Lung volumes within normal limits. Pulmonary vessels do not appear congested. Pleural spaces: Unremarkable. No significant pleural effusion. No pneumothorax. Heart/Mediastinum: The cardiac silhouette is normal. Bones/joints: There are chronic spinal degenerative changes, with multilevel disc narrrowing and spondylosis. Chronic anterior wedge deformities in the midthoracic spine. No acute appearing fracture or high-grade listhesis, in the interval. Soft tissues: No acute findings in the soft tissues. IMPRESSION: No acute findings, or significant change compared with 09/26/2021.
--- NOTE | 2022-02-10 20:08 | ECG_ITS ---
APPROVED REPORT Exam: Resting ECG HR:89 bpm ECG Measurements Heart Rate 89 AXES [place] 152 P 65 QRSd 81 QRS 64 QT 329 T 44 QTc 376 Conclusion SINUS RHYTHM POSSIBLE RIGHT VENTRICULAR CONDUCTION DELAY [RSR (QR) IN V1/V2] BORDERLINE ECG UNCONFIRMED REPORT Electronically signed by : Zbigniew Molina MD 02/12/2022 20:23:46
[2022-02-10 20:09] LABS: Coronavirus 19, PCR Not Detected (NotDetected); Influenza A, PCR Not Detected (NotDetected); Influenza B, PCR Not Detected (NotDetected)
--- NOTE | 2022-02-10 20:13 | PC.NURSE ---
Dr. Chapman at BS speaking with pt at this time.
--- NOTE | 2022-02-10 20:14 | CT_ITS ---
PROCEDURE INFORMATION: Exam: CTA Chest With Contrast Exam date and time: 02/10/2022 8:34 PM Age: 26 years old Clinical indication: Shortness of breath; Additional info: SOA TECHNIQUE: Imaging protocol: Computed tomographic angiography of the chest with contrast. 3D rendering (Not supervised by radiologist): MIP and/or 3D reconstructed images were created by the technologist. Radiation optimization: All CT scans at this facility use at least one of these dose optimization techniques: automated exposure control; mA and/or kV adjustment per patient size (includes targeted exams where dose is matched to clinical indication); or iterative reconstruction. Contrast material: ISOVUE; Contrast volume: 70 ml; Contrast route: INTRAVENOUS (IV); COMPARISON: [facility] CTA-CHEST 01/27/2016 9:32 PM FINDINGS: Pulmonary arteries: Extensive motion/respiratory artifacts and streak artifacts limit the study, resolution is poor on today's exam compared with the prior CTA of 01/27/2016. Heterogeneous appearance of lower pulmonary vessels, small peripheral emboli could be obscured. No large, central or segmental emboli detected. Aorta: No thoracic aortic aneurysm. No findings of dissection in the chest, the aorta is suboptimally enhanced on this PE protocol exam. Lungs: Hazy ground-glass opacities in the posterior lower lungs are probably dependent atelectasis as well as some motion artifact. No rounded ground-glass lesions. No focal consolidation. No nodules. Pleural spaces: Unremarkable. No pneumothorax. No pleural effusion. Heart: The heart is not enlarged. No significant pericardial effusion. Heart RV/LV ratio: RV/LV ratio approximate 0.9, within upper limits normal. There is no reflux of contrast into the IVC and hepatic veins to suggest acute right heart strain. Coronary arteries: No definite coronary artery calcification is visualized. Lymph nodes: No significantly enlarged lymph nodes by short axis criteria. Bones/joints: Degenerative disc disease and spondylosis greatest T7-T8 through T9-T10, disc narrowing, small Schmorl's nodes and vertebral osteophytes. No acute fracture or high-grade listhesis. Very mild chronic anterior wedge deformities of T7 and T8 vertebral bodies, present since 2016. Mediastinum: Low-density soft tissue in the anterior superior mediastinum, probably prominent thymic remnant in this 26-year-old. Soft tissues: There are no soft tissue masses or fluid collections. IMPRESSION: 1. No large central or segmental pulmonary emboli detected. There are extensive respiratory artifacts in the lower lungs limiting evaluation, with heterogeneous appearance of vessels, this could obscure small clots. Much poorer resolution on today's study compared with the previous CTA of 01/27/2016. 2. No pulmonary consolidation or nodules as visualized; motion artifacts. 3. Slightly fatty appearance of the liver. 4. Prominent thymic tissue in the anterior superior mediastinum. 5. Additional nonemergency and chronic findings as above.
[2022-02-10 20:19] LABS: Basophils # 0.2 K/mm3 (0-0.2); Basophils % 1.5 % (0.1-2.0); Eosinophils # 0.4 K/mm3 (0.0-0.4); Eosinophils % 3.6 % (0.1-12.0); Hematocrit 44.7 % (37.0-47.0); Hemoglobin 14.8 g/dL (12.2-16.2); Lymphocytes # 3.7 K/mm3 (0.7-4.5); Mean Corpuscular Hemoglobin 29.8 pg (27.0-31.2); Mean Corpuscular Volume 90.2 fl (81-99); Mean Platelet Volume 7.9 fl (7.4-10.4); Monocytes # 0.5 K/mm3 (0.1-1.0); Monocytes % 4.7 % (1.7-9.3); Neutrophils # 5.8 K/mm3 (1.8-7.8); Neutrophils % 55.2 % (37.0-80.0); Platelet Count 389 K/mm3 (142-424); Red Blood Count 4.95 M/mm3 (4.20-5.40); White Blood Count 10.5 K/mm3 (4.8-10.8)
[2022-02-10 20:28] LABS: Creatine Kinase 88 U/L (30-135)
[2022-02-10 20:29] LABS: Alanine Aminotransferase 32 U/L (12-78); Albumin Level 4.8 g/dl (3.5-5.0); Albumin/Globulin Ratio 1.8 (1.1-1.8); Alkaline Phosphatase 122 U/L (38-126); Anion Gap 12.9 mEq/L (5-15); Aspartate Amino Transferase 30 U/L (14-36); Bilirubin,Total 0.4 mg/dl (0.2-1.3); Blood Urea Nitrogen 9 mg/dl (7-17); Calcium 9.9 mg/dl (8.4-10.2); Carbon Dioxide 25 mmol/L (22.0-30.0); Chloride 105 mmol/L (98-107); Creatinine Clearance Estimated 121 mL/min (50-200); Estimated Glomerular Filt Rate 86 ml/min (>60); GFR (African American) 104 ML/MIN (>60); Globulin 2.7 g/dL (1.3-3.2); Glucose 85 mg/dl (74-100); Potassium 3.9 mmoL/L (3.5-5.1); Sodium 139 mmol/L (136-145); Total Protein,Serum 7.5 g/dl (6.3-8.2)
--- NOTE | 2022-02-10 20:32 | HMH.EDCP ---
Discharge Plan Disposition Patient Disposition: Home, Self-Care Prescriptions Prescriptions: New azithromycin [azithromycin] 250 mg tablet 250 mg PO DIRECTED Qty: 6 0RF Rx Instructions: Take two (2) tablets on day #1, then one (1) tablet day #2 thru #5 prednisone [prednisone] 20 mg tablet 20 mg PO BID Qty: 10 0RF No Action ondansetron 4 MG tablet,disintegrating 4 mg PO TIDP PRN (Reason: Vomiting) Qty: 12 0RF ibuprofen 800 MG tablet 800 mg PO TIDP PRN (Reason: Moderate Pain) Qty: 20 0RF ondansetron 4 MG tablet,disintegrating 4 mg PO BIDP PRN (Reason: Nausea) Qty: 10 0RF Referrals Follow up/Referrals: Provider,Referral, MD [Primary Care Provider] - See instructions Discharge ED Provider: Med Chapman Chest Pain HPI General Chief Complaint: Chest Pain Stated Complaint: Chest Tightness Time Seen by Provider: 02/10/22 20:32 Mode of Arrival: Ambulatory Source of Information: Patient and Medical Record Limitations: No Limitations Description of Symptoms (Recalled from ER Triage Doc. by RN): pt reports left chest pain that radiadetes to the back and shoulder blade. pt states that she believes its just an upper respritory infection with but that its affecting her because she is getting short of air as well as having her heart rate go up to the 150s pt has a hx of tachycardia History of Present Illness HPI narrative: has lt sided chest pain assoc with sob and occ tachycardia - some uri sx also MD complaint: chest pain Onset (ago): hour(s) Pain location: left chest Severity: moderate Risk Factors for CAD: Family Hx of CAD Treatments prior to or on arrival for Cardiac Chest Pain: none ALFIE Score for Non-Stemi Age of Patient: <30 years old Heart Rate: 90-109 bpm Systolic Blood Pressure: 120-139 mmhg Serum Creatinine: 0.80-1.19 mg/dl CHF [place] Class: I-No CHF Other Risk Factors: None Non-Stemi Risk Score: 56 Related Data On Oral Contraceptives: No Previous Rx's Medication Instructions Recorded ondansetron 4 mg disintegrating 4 mg PO TIDP PRN Vomiting #12 tabs 03/11/21 tablet ibuprofen 800 mg tablet 800 mg PO TIDP PRN Moderate Pain 04/19/21 #20 tabs ondansetron 4 mg disintegrating 4 mg PO BIDP PRN Nausea #10 tabs 04/19/21 tablet azithromycin 250 mg tablet 250 mg PO DIRECTED #6 tabs 02/10/22 prednisone 20 mg tablet 20 mg PO BID #10 tabs 02/10/22 Allergies Allergy/AdvReac Type Severity Reaction Status Date / Time No Known Allergies Allergy Verified 04/13/19 14:15 [facility] Disclaimer: The information contained in this section may have been updated after the patient was seen, as this information can be updated by other users. Social History Smoking Status: Current every day smoker tobacco type: cigarettes packs per day: 0 second hand exposure: No alcohol intake: never substance use type: denies use current occupational status: employed Travel in the last 8 weeks: Inside the [place] household members: spouse housing: house current occupation: [employer] current occupational exposures/hazards: Yes ROS Obtained: Yes All systems reviewed & no additional complaints except as documented Physical Exam General General appearance: alert Head Head exam: normocephalic Eye Eye exam: Present PERRL and EOMI ENT ENT exam: Present mucous membranes moist Neck Neck exam: Present trachea midline Respiratory Respiratory exam: Present normal lung sounds bilaterally; Absent respiratory distress Cardiovascular Cardiovascular exam: Present regular rate; Absent tachycardia Abdominal Exam Abdominal exam: Present soft Extremities Exam Extremities exam: Present full ROM Neurological Exam Neurological exam: Present alert, oriented X3 and CN II-XII intact Psychiatric Psychiatric exam: Present normal affect Skin Skin exam: Absent rash Medical Decision Making Medical Records Medical records reviewed: Yes I reviewed the patient's medical records.
[2022-02-10 20:34] LABS: C-Reactive Protein 4.5 mg/L (0-4)
[2022-02-10 21:00] VITALS: BP 139/86; PULSE 85; O2SAT 100
[2022-02-10 21:02] LABS: Procalcitonin 0.037 ng/mL (0.0-2.0)
--- NOTE | 2022-02-10 21:02 | PC.NURSE ---
Rechecked pt condition. Pt voiced no needs or complaints at this time.
[2022-02-10 21:04] LABS: Strep Scrn Group A (Rapid) Negative (Negative)
[2022-02-10 21:04] LABS: Troponin I < 0.01 ng/ml (0.00-0.034)
[2022-02-10 21:10] LABS: Erythrocyte Sedimentation Rate 16 mm/hr (0-20)
--- NOTE | 2022-02-10 21:50 | PC.NURSE ---
Pt ambulatory to bathroom with no assistance.
[2022-02-10 22:31] VITALS: BP 134/88; PULSE 94; RESP 18; TEMP 37.2; O2SAT 98
--- NOTE | 2022-02-10 22:33 | PC.NURSE ---
Dr. Chapman at BS updating pt on POC
== END 2022-02-10 23:30 | disposition home or self-care (01) ==
PROVIDERS: Emergency Provider Emergency Medicine
DX: R07.9 Chest pain, unspecified (principal); M54.9 Dorsalgia, unspecified; M25.519 Pain in unspecified shoulder; Z20.822 Contact with and (suspected) exposure to COVID-19; F17.210 Nicotine dependence, cigarettes, uncomplicated; Z79.1 Long term (current) use of non-steroidal anti-inflammatories (NSAID); Z79.52 Long term (current) use of systemic steroids; Z79.899 Other long term (current) drug therapy; Z82.49 Family history of ischemic heart disease and other diseases of the circulatory system
CPT/HCPCS: 71046; 71275; 80053; 82550; 84145; 84484; 85025; 85651; 86140; 87430; 93005; 96360; 99285; C9803; Q9967; U0003; U0005

== ENCOUNTER 2022-02-16 12:23 | Emergency (ER) | payer OTHER, SELFPAY ==
--- NOTE | 2022-02-16 14:42 | EXP.UTC ---
Discharge Plan Disposition Patient Disposition: Home, Self-Care Condition: Good Prescriptions Prescriptions: No Action ondansetron 4 MG tablet,disintegrating 4 mg PO TIDP PRN (Reason: Vomiting) Qty: 12 0RF ibuprofen 800 MG tablet 800 mg PO TIDP PRN (Reason: Moderate Pain) Qty: 20 0RF ondansetron 4 MG tablet,disintegrating 4 mg PO BIDP PRN (Reason: Nausea) Qty: 10 0RF azithromycin [azithromycin] 250 mg tablet 250 mg PO DIRECTED Qty: 6 0RF Rx Instructions: Take two (2) tablets on day #1, then one (1) tablet day #2 thru #5 prednisone [prednisone] 20 mg tablet 20 mg PO BID Qty: 10 0RF Referrals Follow up/Referrals: Faheem Vargas MD [Primary Care Provider] - See instructions Activity Restrictions/Add. Instructions Additional Instructions/Restrictions: Drink plenty of fluids. Take tylenol or ibuprofen for pain or fever. Take the medications as directed. Follow up with your regular doctor. GO TO THE ER FOR ANY WORSENING SYMPTOMS Finish the medicatons you are on. Clinical Impressions Clinical Impression: Viral syndrome Instructions Patient Instructions: DI for Viral Syndrome Discharge ED Provider: Judd Oshea [facility] General Stated complaint: High rate elevated, Cough Time Seen by Provider: 02/16/22 14:45 History of Present Illness Provider Complaint: She states that for the past 2 days she has had chills, body aches and low grade fever. Related Data Previous Rx's Medication Instructions Recorded ondansetron 4 mg disintegrating 4 mg PO TIDP PRN Vomiting #12 tabs 03/11/21 tablet ibuprofen 800 mg tablet 800 mg PO TIDP PRN Moderate Pain 04/19/21 #20 tabs ondansetron 4 mg disintegrating 4 mg PO BIDP PRN Nausea #10 tabs 04/19/21 tablet azithromycin 250 mg tablet 250 mg PO DIRECTED #6 tabs 02/10/22 prednisone 20 mg tablet 20 mg PO BID #10 tabs 02/10/22 Allergies Allergy/AdvReac Type Severity Reaction Status Date / Time No Known Allergies Allergy Verified 02/16/22 15:13 [facility] Disclaimer: The information contained in this section may have been updated after the patient was seen, as this information can be updated by other users. Social History Smoking Status: Current every day smoker tobacco type: cigarettes packs per day: 0 second hand exposure: No alcohol intake: never substance use type: denies use current occupational status: employed Travel in the last 8 weeks: Inside the [place] household members: spouse housing: house current occupation: [employer] current occupational exposures/hazards: Yes ROS Obtained: Yes All systems reviewed & no additional complaints except as documented Constitutional Constitutional: Reports chills and Reports fever(s) Eyes Eyes: Denies eye discharge ENT Ears, Nose, Mouth, and Throat: Reports as per HPI Cardiovascular Cardiovascular: Denies chest pain Respiratory Respiratory: Denies chest congestion and Reports cough Gastrointestinal Gastrointestingal: Reports nausea; Denies abdominal pain, constipation, cramping, diarrhea or vomiting Musculoskeletal Musculoskeletal: Denies arthralgias Integumentary/Breasts Skin/Breast: Denies rash Neurologic Neurologic: Denies paresthesias Physical Exam General General appearance: alert and in no apparent distress Head Head exam: atraumatic, normocephalic and normal inspection Eye Eye exam: Present normal appearance, PERRL and EOMI ENT ENT exam: Present normal exam, normal oropharynx, mucous membranes moist, TM's normal bilaterally and normal external ear exam Neck Neck exam: Present normal inspection, full ROM and trachea midline; Absent meningismus or lymphadenopathy Chest Chest inspection: Present normal inspection and symmetric chest wall rise; Absent tenderness Respiratory Respiratory exam: Present normal lung sounds bilaterally; Absent respiratory distress Cardiovascular C
[2022-02-16 15:05] LABS: UTC Strep Screen (Rapid) Negative (Negative)
[2022-02-16 15:06] LABS: UTC Influenza A Antigen Negative (Negative); UTC Influenza B Antigen Negative (Negative)
[2022-02-16 15:08] VITALS: BP 136/88; PULSE 86; RESP 17; TEMP 36.8; O2SAT 98; BMI 26.6
[2022-02-16 15:32] VITALS: BP 136/88; PULSE 86; RESP 17; TEMP 36.8
[2022-02-16 15:46] LABS: Adenovirus,PCR Not Detected (NotDetected); Bordetella Pertussis Not Detected (NotDetected); Chlamydophila Pneumoniae, PCR Not Detected (NotDetected); Coronavirus 19, PCR Not Detected (NotDetected); Coronavirus 229E Not Detected (NotDetected); Coronavirus NL63 Not Detected (NotDetected); Coronavirus OC43 Not Detected (NotDetected); Human Metapneumovirus Not Detected (NotDetected); Influenza A, PCR Not Detected (NotDetected); Influenza AH1, 2009 Not Detected (NotDetected); Influenza AH1, PCR Not Detected (NotDetected); Influenza AH3,PCR Not Detected (NotDetected); Influenza B, PCR Not Detected (NotDetected); Mycoplasma Pneumoniae, PCR Not Detected (NotDetected); Parainfluenza 1, PCR Not Detected (NotDetected); Parainfluenza 2, PCR Not Detected (NotDetected); Parainfluenza 3, PCR Not Detected (NotDetected); Parainfluenza 4, PCR Not Detected (NotDetected); Respiratory Syncytial Virus Not Detected (NotDetected); Rhinovirus/Enterovirus Not Detected (NotDetected)
[2022-02-16 22:43] LABS: Coronovirus HKU1,PCR Detected (NotDetected)
== END 2022-02-16 15:33 | disposition home or self-care (01) ==
PROVIDERS: Emergency Provider Nurse Practitioner Family; PCP Family Medicine
DX: R05.9 Cough, unspecified (principal); B34.9 Viral infection, unspecified
CPT/HCPCS: 87581; 87632; 87798; 87804; 87880; 99212; C9803; G0463; U0003; U0005

== ENCOUNTER → 2022-05-13 23:00 | Outpatient (CLI) | payer SELFPAY ==
[2022-05-13 17:29] LABS: Microscopic, Urine URINE MICROSCOPIC (MICROSCOPIC)
[2022-05-13 17:33] LABS: Appearance,Urine CLEAR (Clear); Bilirubin,Urine Negative (Negative); Blood, Urine TRACE-I (Negative); Color,Urine YELLOW (Yellow); Glucose,Urine (UA) Negative (Negative); Ketones,Urine Negative (Negative); Leukocyte Esterase,Urine 3+ (Negative); Nitrate,Urine Negative (Negative); Protein,Urine Negative (Negative); Specific Gravity, Urine 1.025 (1.005-1.030); Urobilinogen,Urine 0.2 EU/dl (0.2)
[2022-05-13 17:53] LABS: Bacteria,Urine 1+ /lpf
== END ==
PROVIDERS: PCP Nurse Practitioner Family; Visit Provider Nurse Practitioner Family
DX: N39.0 Urinary tract infection, site not specified (principal); M54.50 Low back pain, unspecified; R10.9 Unspecified abdominal pain
CPT/HCPCS: 81001; 87086

== ENCOUNTER → 2022-07-22 12:07 | Outpatient (CLI) | payer OTHER, SELFPAY ==
[2022-07-22 12:27] LABS: Microscopic, Urine URINE MICROSCOPIC (MICROSCOPIC)
[2022-07-22 12:35] LABS: Basophils % 0.5 % (0.1-2.0); Eosinophils # 0.3 K/mm3 (0.0-0.4); Eosinophils % 3.1 % (0.1-12.0); Hematocrit 43.2 % (37.0-47.0); Hemoglobin 14.3 g/dL (12.2-16.2); Lymphocytes # 2.7 K/mm3 (0.7-4.5); Lymphocytes % 31.7 % (10-50); Mean Corpuscular Hemoglobin 29.8 pg (27.0-31.2); Mean Corpuscular Volume 90.2 fl (81-99); Mean Platelet Volume 7.9 fl (7.4-10.4); Monocytes # 0.3 K/mm3 (0.1-1.0); Neutrophils # 5.2 K/mm3 (1.8-7.8); Neutrophils % 60.7 % (37.0-80.0); Platelet Count 354 K/mm3 (142-424); Red Blood Count 4.79 M/mm3 (4.20-5.40); Red Cell Distribution Width 13.5 % (11.5-17.5); White Blood Count 8.5 K/mm3 (4.8-10.8)
[2022-07-22 12:36] LABS: Appearance,Urine TURBID (Clear); Bilirubin,Urine Negative (Negative); Blood, Urine 3+ (Negative); Glucose,Urine (UA) Negative (Negative); Ketones,Urine TRACE (Negative); Leukocyte Esterase,Urine 1+ (Negative); Nitrate,Urine POSITIVE (Negative); PH,Urine 6.5 (5.0-8.5); Protein,Urine 2+ (Negative); Specific Gravity, Urine 1.025 (1.005-1.030)
[2022-07-22 12:38] LABS: Chloride 105 mmol/L (98-107); Potassium 4.3 mmoL/L (3.5-5.1); Sodium 140 mmol/L (136-145)
[2022-07-22 12:40] LABS: Alanine Aminotransferase 37 U/L (12-78); Albumin Level 4.7 g/dl (3.5-5.0); Albumin/Globulin Ratio 1.6 (1.1-1.8); Alkaline Phosphatase 85 U/L (38-126); Anion Gap 15.3 mEq/L (5-15); Aspartate Amino Transferase 35 U/L (14-36); Bilirubin,Total 0.9 mg/dl (0.2-1.3); Blood Urea Nitrogen 9 mg/dl (7-17); Carbon Dioxide 24 mmol/L (22.0-30.0); Cholesterol 105 mg/dl (140-200); Estimated Glomerular Filt Rate 120 ml/min (>60); GFR (African American) 145 ML/MIN (>60); Iron 130 ug/dL (37-170); Total Protein,Serum 7.7 g/dl (6.3-8.2); Triglycerides 112 mg/dl (30-150); VLDL Cholesterol 22 mg/dL (0-40)
[2022-07-22 12:41] LABS: Calcium 9.6 mg/dl (8.4-10.2); Chol/HDL Ratio 2.8 (1-3.5); Color,Urine RED (Yellow); Glucose 73 mg/dl (74-100); HDL Cholesterol 38 mg/dl (40-60); Magnesium 2.1 mg/dl (1.6-2.3)
[2022-07-22 12:47] LABS: C-Reactive Protein 3.4 mg/L (0-4); RBC,Urine TNTC #/hpf (0-3)
[2022-07-22 12:50] LABS: Bacteria,Urine Trace /lpf; Squamous Epithelial Cell,Urine Occasional #/hpf (0-5); Total Iron Binding Capacity 391 ug/dL (265-497)
[2022-07-22 12:52] LABS: Direct LDL Cholesterol 31.96 mg/dL (100-129)
[2022-07-22 12:58] LABS: Erythrocyte Sedimentation Rate 34 mm/hr (0-20)
[2022-07-22 13:12] LABS: Thyroid Stimulating Hormone 0.81 uIU/mL (0.465-4.68)
[2022-07-22 13:16] LABS: Ferritin 39.3 ng/ml (6.24-137)
[2022-07-22 13:40] LABS: Vitamin B12 441 pg/mL (239-931)
[2022-07-23 18:07] LABS: Cytoplasmic (C-ANCA) <1:20 titer (Neg:<1:20); Perinuclear (P-ANCA) <1:20 titer (Neg:<1:20); Tissue Transglutaminase IgA Ab <2 U/mL (0-3); Tissue Transglutaminase IgG Ab <2 U/mL (0-5)
[2022-07-24 15:03] LABS: Saccharomyces cerevisiae, IgA <20.0 Units (0.0-24.9); Saccharomyces cerevisiae, IgG <20.0 Units (0.0-24.9)
== END ==
LOC: LAB.DROPOF 12:08
PROVIDERS: PCP Nurse Practitioner Family; Visit Provider Nurse Practitioner Family
DX: R10.9 Unspecified abdominal pain (principal); I10 Essential (primary) hypertension; R53.83 Other fatigue; R19.7 Diarrhea, unspecified; N39.0 Urinary tract infection, site not specified
CPT/HCPCS: 80053; 80061; 81001; 82607; 82728; 83516; 83540; 83550; 83735; 84443; 85025; 85651; 86140; 86256; 86671; 87086

== ENCOUNTER → 2022-07-23 09:32 | Outpatient (CLI) | payer OTHER, SELFPAY ==
--- NOTE | 2022-07-23 09:32 | CT_ITS ---
FINAL REPORT TECHNIQUE: After the administration of intravenous contrast, axial images were obtained through the abdomen and pelvis by computed tomography. The study was performed with techniques to keep radiation dose as low as reasonably achievable, (ALARA). Individual dose reduction techniques using automated exposure control or adjustment of mA and/or kV according to the patient's size were employed. CLINICAL HISTORY: bilateral flank pain, hematuria, hx of renal stone FINDINGS: Abdomen: The lung bases are clear. The liver parenchyma is homogeneous. The gallbladder is present. The spleen, pancreas, adrenals and kidneys appear unremarkable. The aorta is normal in caliber. There is no free fluid or adenopathy. Pelvis: The appendix is normal. Uterus is anteverted. There are small cysts or follicles in both ovaries. The urinary bladder is unremarkable. There is no free fluid or adenopathy. IMPRESSION: No renal stone or obstruction. Reviewed, Interpreted and Dictated by Dajuan Aguilar MD Transcribed by Thuy Lin Authenticated and [facility]
== END ==
LOC: RAD 09:32
PROVIDERS: PCP Nurse Practitioner Family; Visit Provider Nurse Practitioner Family
DX: R10.9 Unspecified abdominal pain (principal); N39.0 Urinary tract infection, site not specified; R31.9 Hematuria, unspecified; Z87.442 Personal history of urinary calculi
CPT/HCPCS: 74177; Q9967

== ENCOUNTER → 2022-07-27 16:26 | Outpatient (CLI) | payer OTHER, SELFPAY ==
[2022-07-27 19:53] LABS: Adenovirus F 40/41, stool Not Detected (NotDetected); Astrovirus Not Detected (NotDetected); Campylobacter Not Detected (NotDetected); Clostridium Difficile A/B, PCR Not Detected (NotDetected); Cryptosporidium Not Detected (NotDetected); Cyclospora Cayetanesis Not Detected (NotDetected); Entamoeba histolytica Not Detected (NotDetected); Enteroaggregative E coli Not Detected (NotDetected); Enteropathogenic E coli Not Detected (NotDetected); Enterotoxigenic E coli Not Detected (NotDetected); Giardia lamblia Not Detected (NotDetected); Norovirus Not Detected (NotDetected); Plesimonas Shigalloides, PCR Not Detected (NotDetected); Rotavirus A Not Detected (NotDetected); Salmonella, PCR Not Detected (NotDetected); Sapovirus Not Detected (NotDetected); Shiga-like toxin E coli Not Detected (NotDetected); Shigella Enterovasive E coli Not Detected (NotDetected); Vibrio Cholerae Not Detected (NotDetected); Vibrio, PCR Not Detected (NotDetected); Yersinia Entercolitica, PCR Not Detected (NotDetected)
== END ==
PROVIDERS: Nurse Practitioner Family
DX: R19.7 Diarrhea, unspecified (principal)
CPT/HCPCS: 87507

== ENCOUNTER → 2022-07-28 10:29 | Outpatient (CLI) | payer OTHER, SELFPAY ==
--- NOTE | 2022-07-28 10:34 | XR_ITS ---
FINAL REPORT CLINICAL HISTORY: acute lumbar spine pain COMPARISON: December 2017 FINDINGS: 4 views were obtained. There is no acute fracture. There is no malalignment. The disc spaces are maintained. IMPRESSION: No acute process. Reviewed, Interpreted and Dictated by Leonardo Barragan MD Transcribed by Adama Contreras Authenticated and [facility]
== END ==
LOC: RAD 10:30
PROVIDERS: PCP Nurse Practitioner Family; Visit Provider Nurse Practitioner Family
DX: M54.16 Radiculopathy, lumbar region (principal)
CPT/HCPCS: 72110

== ENCOUNTER → 2022-07-29 13:29 | Outpatient (CLI) | payer OTHER, SELFPAY ==
--- NOTE | 2022-07-29 13:40 | MR_ITS ---
FINAL REPORT TECHNIQUE: Multiplanar MR, without and with gadolinium enhancement CLINICAL HISTORY: extreme lumbar spine pain since yesterday morning, bilateral leg weakness and pain, pressure on coccyx. no injury 15ml prohance injected COMPARISON: None FINDINGS: Sagittal images show normal vertebral height. Alignment is normal. Marrow signal pattern is unremarkable. No mass or abnormal enhancement. L1-2: Unremarkable. L2-3: Unremarkable. L3-4: Unremarkable. L4-5: Unremarkable. L5-S1: Small to moderate left paracentral disc protrusion contacts the left S1 nerve root. IMPRESSION: Disc protrusion L5-S1. Reviewed, Interpreted and Dictated by Leonardo Barragan MD Transcribed by Sherin House Authenticated and [facility]
== END ==
LOC: RAD 13:29
PROVIDERS: PCP Nurse Practitioner Family; Visit Provider Nurse Practitioner Family
DX: M54.16 Radiculopathy, lumbar region (principal)
CPT/HCPCS: 72158; 76376; A9576

== ENCOUNTER → 2022-07-30 11:38 | Outpatient (POV) | payer OTHER, SELFPAY ==
--- NOTE | 2022-07-30 11:43 | EXP.PAIN.OV ---
HPI Data of Consult Patient: new to practice Consult date: 07/30/22 Requesting Physician: Brenda Mcgrath APRN Primary Care Provider: Alexandria Rivera APRN Consult Narrative Reason for consult: Low back pain, bilateral leg pain History of present illness: Ms. Mi is a 26 year old female who presents today as a new patient. She is a referral from Alexandria Rivera's office. Today she rates her pain a 7 out of 10. Patient states her pain is all in her low back with radiating symptoms into her bilateral lower extremities. She does state that her left leg is the worst leg and she describes her pain as a sharp achy sensation that is constant. Patient denies any specific trauma or injury that initially led to her symptoms. She states approximately 2 days ago she had been mopping and went to bed when she was woken up with severe debilitating pain in her low back and legs. Patient does state that she has tingling and jerking spasm like sensations into her extremities. Patient states that she has been to her primary care doctor who prescribed her Toradol and a muscle relaxer however the Toradol is out of stock and she is only gotten minimal relief with the muscle relaxer. Patient denies any previous surgery or injection history or physical therapy. Patient states she is scheduled to see neurosurgery on the at [facility]. Patient is not on any scheduled medications. Patient is currently managed with ketorolac 10 mg p.o. every 6 hours as needed and Skelaxin 800 mg 3 times daily as needed.Her Berry is [id number]. Its been reviewed and appropriate. CC: Brenda Mcgrath APRN [facility] Disclaimer: The information contained in this section may have been updated after the patient was seen, as this information can be updated by other users. Medical History Acute urinary tract infection Chest pain DDD (degenerative disc disease), cervical 01/2022 Dilation of bladder Dizziness Exposure to strep throat Migraine Nausea & vomiting Near syncope Palpitations Tachycardia URI (upper respiratory infection) UTI (urinary tract infection) Viral syndrome Viral upper respiratory illness Viral URI with cough Surgical History H/O cystoscopy H/O laparoscopy H/O tubal ligation Family History Father Diabetes Coronary artery disease Hypertension Heart attack Mother Thyroid disorder Social History Smoking Status: Current every day smoker tobacco type: cigarettes packs per day: 1 second hand exposure: No alcohol intake: never substance use type: denies use current occupational status: employed Travel in the last 8 weeks: Inside the [place] household members: spouse housing: house current occupation: [email or web address] current occupational exposures/hazards: Yes Review of Systems Review of Systems Review of systems:: pertinent systems reviewed and negative unless documented below Review of systems (narrative): Review of Systems: General: No recent weight changes, no fever, no sleep disturbances Respiratory: No cough, no shortness of air, no recurring pulmonary infections Cardiovascular/peripheral vascular: No chest pain, no palpitations, no edema, no shortness of breath Gastrointestinal: No new onset incontinence, normal bowel movements reported Genitourinary: No new onset incontinence Musculoskeletal: Low back pain, bilateral leg pain Psychiatric: [Normal mood/affect] Neurological: [Denies weakness in extremities], [denies balance issues] Meds Home Medications and Allergies Home Medications Medication Instructions Recorded Confirmed Type clindamycin phosphate 1 % lotion 1 applic topical DAILY 07/22/22 07/28/22 History hyoscyamine sulfate 0.125 mg 0.125 mg sublingual QID SC
[2022-07-30 13:38] VITALS: BP 121/76; PULSE 76; RESP 18; O2SAT 99; BMI 29.2
== END | disposition home or self-care (01) ==
PROVIDERS: PCP Nurse Practitioner Family; Visit Provider Nurse Practitioner Family
DX: M51.16 Intervertebral disc disorders with radiculopathy, lumbar region (principal)
CPT/HCPCS: 99202; G0463

== ENCOUNTER → 2022-09-30 14:23 | Outpatient (CLI) | payer OTHER, SELFPAY ==
--- NOTE | 2022-09-30 14:23 | MM_ITS ---
PROCEDURE INFORMATION: Exam: US Left Breast, Complete MG Left Diagnostic Breast Tomosynthesis Exam date and time: 09/30/2022 3:00 PM Age: 27 years old Clinical indication: Left breast pain; Left breast palpable lump TECHNIQUE: Imaging protocol: Complete ultrasound of all four quadrants of the left breast and the retroareolar regions, including ultrasound of the axilla when performed. Left Diagnostic tomosynthesis and 2D mammography including computer-aided detection (CAD) when performed. Unilateral or bilateral exam. COMPARISON: No relevant prior studies available. FINDINGS: MAMMOGRAPHY: The breast tissue is composed of scattered areas of fibroglandular density. There is no stellate mass, architectural distortion or suspicious microcalcifications to suggest malignancy. No skin thickening or axillary adenopathy. ULTRASOUND: Sonographic images of the left breast including the retroareolar region, all 4 quadrants and the axilla do not demonstrate any solid or cystic masses. No architectural distortion or acoustical shadowing. No skin thickening or axillary adenopathy. IMPRESSION: No mammographic or sonographic evidence of malignancy. Further evaluation of a palpable abnormality should be based on clinical grounds regardless of radiographic findings or lack thereof. ASSESSMENT: BI-RADS Category 1: Negative
== END ==
LOC: RAD 14:23
PROVIDERS: PCP Nurse Practitioner Family; Visit Provider Nurse Practitioner Family
DX: N64.4 Mastodynia (principal)
CPT/HCPCS: 76641; 77061; 77065; G0279

== ENCOUNTER 2022-10-17 08:23 | Emergency (ER) | payer OTHER, SELFPAY ==
[2022-10-17 08:24] VITALS: BP 102/78; PULSE 110; RESP 18; TEMP 36.8; O2SAT 96; BMI 27.4
--- NOTE | 2022-10-17 08:39 | EXP.UTC ---
Discharge Plan Disposition Patient Disposition: Home, Self-Care Condition: Good Prescriptions Prescriptions: No Action cyclobenzaprine 5 mg tablet 5 mg PO HS PRN (Reason: muscle spasm) Qty: 30 0RF hyoscyamine sulfate [Levsin] 0.125 mg tablet 0.125 mg PO DAILY PRN (Reason: abdominal pain) Qty: 30 0RF albuterol sulfate 90 mcg/actuation HFA aerosol inhaler 2 inh inhalation Q6H PRN (Reason: shortness of breath or wheezing) Qty: 6.7 0RF azithromycin [Zithromax] 250 mg tablet See Rx Instructions .ROUTE .COMPLEX Qty: 6 0RF Rx Instructions: For 250 mg dose pack: take 500 mg today (day 1), then 250 mg for 4 days (days 2-5) benzonatate 200 mg capsule 200 mg PO TID PRN (Reason: cough) Qty: 30 0RF prednisone 20 mg tablet 20 mg PO BID Qty: 10 0RF Referrals Follow up/Referrals: Alexandria Rivera APRN [Primary Care Provider] - See instructions Activity Restrictions/Add. Instructions Additional Instructions/Restrictions: Take all meds as directed Return to [facility] if worsening symptoms Follow up with Alexandria next week Clinical Impressions Clinical Impression: Bronchitis, Pleurisy, Cigarette smoker Instructions Patient Instructions: DI for Acute Bronchitis Discharge [place] Judd [place] [facility] [place] General Stated complaint: cough, painful breathing,sore throat Mode of Arrival: Ambulatory Source of Information: Patient Limitations: No Limitations Time Seen by Provider: 10/17/22 08:39 Description of Symptoms (Recalled from Triage Doc. by RN): Complaint of cough, sore throat, and painful breathing since Wednesday. HEENT Symptoms (Recalled from RN notes): Yes Resp Symptoms (Recalled from RN notes): No Skin Symptoms (Recalled from RN notes): No MS Symptoms (Recalled from RN notes): No Functional Status (Recalled from RN notes): wnl History of Present Illness Provider Complaint: Cough, congestion, sore throat, burning in chest X 5 days. Cough is non productive. No fever. She does smoke. Short of breath, worse when laying down. No vomiting or diarrhea. Onset (ago): day(s) (5) Location: chest Relieving factors: none Exacerbating factors: none Associated symptoms: cough and shortness of breath Treatments prior to arrival: none Related Data Previous Rx's Medication Instructions Recorded cyclobenzaprine 5 mg tablet 5 mg PO HS PRN muscle spasm #30 09/28/22 tabs hyoscyamine sulfate 0.125 mg 0.125 mg PO DAILY PRN abdominal 10/13/22 tablet (Levsin) pain #30 tabs albuterol sulfate 90 mcg/actuation 2 inh inhalation Q6H PRN shortness 10/17/22 aerosol inhaler of breath or wheezing #6.7 grams azithromycin 250 mg tablet See Rx Instructions PO .COMPLEX #6 10/17/22 (Zithromax) tabs benzonatate 200 mg capsule 200 mg PO TID PRN cough #30 caps 10/17/22 prednisone 20 mg tablet 20 mg PO BID #10 tabs 10/17/22 Allergies Allergy/AdvReac Type Severity Reaction Status Date / Time No Known Allergies Allergy Verified 09/28/22 15:44 Worker's Comp Is this a Worker's Comp case?: No [facility] Disclaimer: The information contained in this section may have been updated after the patient was seen, as this information can be updated by other users. Medical History Acute urinary tract infection Chest pain DDD (degenerative disc disease), cervical 01/2022 Dilation of bladder Dizziness Exposure to strep throat Migraine Nausea & vomiting Near syncope Palpitations Tachycardia URI (upper respiratory infection) UTI (urinary tract infection) Viral syndrome Viral upper respiratory illness Viral URI with cough Surgical History H/O cystoscopy H/O laparoscopy H/O tubal ligation Family History Father Diabetes Coronary artery disease Hypertension Heart attack Mother Thyroid disorder Social History (Revi
[2022-10-17 08:54] VITALS: BP 102/78; PULSE 110; RESP 18; TEMP 36.8; O2SAT 96
== END 2022-10-17 08:55 | disposition home or self-care (01) ==
PROVIDERS: Emergency Provider Physician Assistant; PCP Nurse Practitioner Family
DX: J20.9 Acute bronchitis, unspecified (principal); R09.1 Pleurisy; F17.210 Nicotine dependence, cigarettes, uncomplicated
CPT/HCPCS: 99212; 99214; G0463

== ENCOUNTER → 2023-01-04 16:51 | Outpatient (CLI) | payer OTHER, SELFPAY ==
[2023-01-04 16:45] LABS: Influenza B, PCR Not Detected (NotDetected)
[2023-01-04 21:52] LABS: Coronavirus 19, PCR Not Detected (NotDetected); Influenza A, PCR Not Detected (NotDetected)
== END ==
PROVIDERS: PCP Nurse Practitioner Family; Visit Provider Nurse Practitioner Family
DX: J06.9 Acute upper respiratory infection, unspecified (principal)
CPT/HCPCS: 87636

== ENCOUNTER 2023-03-05 13:46 | Outpatient (CLI) | payer OTHER, SELFPAY | END 2023-03-05 23:59 | PROVIDERS: PCP Nurse Practitioner Family; Visit Provider Nurse Practitioner Family | DX: N39.0 Urinary tract infection, site not specified (principal); B96.89 Other specified bacterial agents as the cause of diseases classified elsewhere | CPT/HCPCS: 87086 ==

== ENCOUNTER 2023-04-08 16:32 | Outpatient (CLI) | payer BC, SELFPAY ==
--- NOTE | 2023-04-08 | ECG_ITS ---
APPROVED REPORT Exam: Resting ECG HR:88 bpm ECG Measurements Heart Rate 88 AXES OK 149 P 74 QRSd 92 QRS 78 QT 345 T 53 QTc 390 Conclusion SINUS RHYTHM POSSIBLE RIGHT VENTRICULAR CONDUCTION DELAY [RSR (QR) IN V1/V2] BORDERLINE ECG UNCONFIRMED REPORT Electronically signed by : Zbigniew Molina MD 04/22/2023 20:05:39
== END 2023-04-08 23:59 ==
LOC: RAD 16:33
PROVIDERS: PCP Nurse Practitioner Family; Visit Provider Nurse Practitioner Family
DX: R10.9 Unspecified abdominal pain (principal); N39.0 Urinary tract infection, site not specified; R06.09 Other forms of dyspnea
CPT/HCPCS: 71046; 87086; 93005

== ENCOUNTER 2023-04-25 21:09 | Emergency (ER) | payer BC, SELFPAY ==
[2023-04-25 21:10] VITALS: BP 173/101; PULSE 97; RESP 20; TEMP 36.8; O2SAT 100; BMI 26.6
--- NOTE | 2023-04-25 21:25 | CT_ITS ---
PROCEDURE INFORMATION: Exam: CT Head Without Contrast Exam date and time: 04/25/2023 10:38 PM Age: 27 years old Clinical indication: Pain; Visual disturbance; Headache; Additional info: ESCUDERO over crown intermittent blurry vision TECHNIQUE: Imaging protocol: Computed tomography of the head without contrast. Radiation optimization: All CT scans at this facility use at least one of these dose optimization techniques: automated exposure control; mA and/or kV adjustment per patient size (includes targeted exams where dose is matched to clinical indication); or iterative reconstruction. COMPARISON: CT HEAD/BRAIN WO CON 04/19/2021 12:49 PM FINDINGS: Brain: Normal. No hemorrhage. Unremarkable white matter. No mass effect. Cerebral ventricles: No ventriculomegaly. Paranasal sinuses: Visualized sinuses are unremarkable. No fluid levels. Mastoid air cells: Visualized mastoid air cells are well aerated. Bones/joints: Unremarkable. No acute fracture. Soft tissues: Unremarkable. IMPRESSION: No acute intracranial abnormality.
--- NOTE | 2023-04-25 21:25 | CT_ITS ---
PROCEDURE INFORMATION: Exam: CTA Head With Contrast, Venography Exam date and time: 04/25/2023 10:40 PM Age: 27 years old Clinical indication: Pain; Visual disturbance; Headache; Additional info: ESCUDERO over crown, intermittent blurry vision TECHNIQUE: Imaging protocol: Computed tomography angiography of the head with contrast. Exam focused on the veins. 3D rendering (Not supervised by radiologist): MIP and/or 3D reconstructed images were created by the technologist. Radiation optimization: All CT scans at this facility use at least one of these dose optimization techniques: automated exposure control; mA and/or kV adjustment per patient size (includes targeted exams where dose is matched to clinical indication); or iterative reconstruction. Contrast material: ISO 370; Contrast volume: 100 ml; Contrast route: INTRAVENOUS (IV); COMPARISON: CT HEAD/BRAIN WO CON 04/25/2023 10:38 PM FINDINGS: Superior sagittal sinus: Patent. Straight sinus: Patent. Transverse sinuses: Patent. Sigmoid sinuses: Patent. Internal jugular veins: Limited visualized internal jugular veins are patent. Brain: No definite mass, mass effect, or midline shift. Cerebral ventricles: No ventriculomegaly. Soft tissues: Unremarkable. IMPRESSION: No venous thrombosis.
--- NOTE | 2023-04-25 21:28 | ECG_ITS ---
APPROVED REPORT Exam: Resting ECG HR:97 bpm ECG Measurements Heart Rate 97 AXES NM 136 P 50 QRSd 91 QRS 72 QT 360 T 48 QTc 414 Conclusion SINUS RHYTHM POSSIBLE RIGHT VENTRICULAR CONDUCTION DELAY [RSR (QR) IN V1/V2] BORDERLINE ECG UNCONFIRMED REPORT Electronically signed by : VASILE REYNOSO, 04/25/2023 23:08:36
--- NOTE | 2023-04-25 21:28 | ED_ITS ---
Discharge Plan Disposition Patient Disposition: Home, Self-Care Prescriptions Prescriptions: No Action ibuprofen 800 mg tablet 800 mg PO Q8H PRN (Reason: back pain) Qty: 30 0RF tretinoin 0.025 % cream topical HS Patient Comments: APPLY 1 APPLICATION TOPICALLY TO RIGHT AND LEFT CHEEK EVERY NIGHT AT BEDTIME clindamycin phosphate 1 % lotion 1 applic topical DAILY ciprofloxacin HCl 250 mg tablet 250 mg PO BID 7 Days Qty: 14 0RF Referrals Follow up/Referrals: Ann Marie Ayala MD [Staff Physician] - See instructions Alexandria Rivera APRN [Primary Care Provider] - See instructions Activity Restrictions/Add. Instructions Additional Instructions/Restrictions: At this time it was felt you are safe to be discharged home. If new or worsening symptoms please do not hesitate to return the emergency department. If symptoms persist please follow-up with your family doctor as you are able for possible neurology referral as discussed with Dr. Ayala. Clinical Impressions Clinical Impression: Headache, Dizziness Discharge ED Provider: Jose E Macias General Adult HPI <Jose E Macias MD - Last Filed: 04/25/23 23:02> General Chief complaint: Dizziness Stated complaint: HBP,dizziness Time Seen by Provider: 04/25/23 21:12 Mode of Arrival: Ambulatory Source of Information: Patient Limitations: No Limitations Description of Symptoms (Recalled from ER Triage Doc. by RN): Pt states she's had dizziness and blurred vision X 2 months. Pt has a referral for Cardiology and has an appt Wed 04/27. Pt experienced an episode of dizziness tonight and decided to come to ED. Pt is A&O*4 History of Present Illness HPI narrative: Patient is a 27-year-old female who presents emergency department for evaluation of dizziness, headache, intermittent blurred vision. Dizziness has been going on for a couple of months and was seemingly precipitated by influenza infection, paroxysmal. She has been evaluated by PCP and has specialist referral pending. She has not seen a neurologist. Today she had a headache onset over her crown with transient visual blurriness which resolved prior to arrival. No falls. Due to persistent symptoms she presents here for continued evaluation. Related Data Home Medications Medication Instructions Recorded Confirmed clindamycin phosphate 1 % lotion 1 applic topical DAILY 04/08/23 04/08/23 tretinoin 0.025 % topical cream applic topical HS 04/08/23 04/08/23 Previous Rx's Medication Instructions Recorded ibuprofen 800 mg tablet 800 mg PO Q8H PRN back pain #30 03/05/23 tabs ciprofloxacin HCl 250 mg tablet 250 mg PO BID 7 days #14 tabs 04/08/23 Allergies Allergy/AdvReac Type Severity Reaction Status Date / Time No Known Allergies Allergy Verified 04/08/23 15:39 PFSH <Jose E Macias MD - Last Filed: 04/25/23 23:02> [facility] Disclaimer: The information contained in this section may have been updated after the patient was seen, as this information can be updated by other users. Medical History (Updated 04/25/23 @ 22:07 by Jose E Macias MD) Abdominal pain Acute urinary tract infection Bilateral flank pain Bowel habit changes Bronchitis Chest pain DDD (degenerative disc disease), cervical Diarrhea Dilation of bladder Dizziness Exposure to strep throat Family history of Crohn's disease Hematuria History of renal calculi Left breast lump Low back pain Lumbar back pain with radiculopathy affecting lower extremity Lumbar disc disease with radiculopathy Lumbar nerve root impingement Migraine Muscle strain of left upper back Nausea & vomiting Near syncope Nipple pain Pain of left breast Palpitations Pelvic pain Pleurisy Tachycardia Tingling of left upper extremity Upper back pain on left side URI (upper respiratory infection) UTI (urinary tract infection) Viral respiratory illness Viral syndrome Viral upper respiratory illness Viral URI with cough Surgical History H/O cystoscopy H/O laparoscopy H/O tubal ligation Family History (Updated 04/11/23 @ 14:06 by Alexandria Rivera APRN) Father Diabetes Coronary artery disease Hypertension Heart attack, Onset Age: 39 Mother Thyroid disorder Social History (Updated 04/11/23 @ 14:07 by Alexandria Rivera APRN) Smoking Status: Current every day smoker tobacco type: cigarettes packs per day: 1 smoking status start date: 2010 quit status: not considering quitting second hand exposure: Yes alcohol intake: never substance use type: denies use current occupational status: employed Travel in the last 8 weeks: None household members: spouse housing: house current occupation: [employer] current occupational exposures/hazards: Yes <Jose E Macias MD - Last Filed: 04/25/23 23:02> ROS Obtained: Yes Systems reviewed as appropriate & no additional complaints except as documented Physical Exam <Jose E Macias MD - Last Filed: 04/25/23 23:02> General General appearance: alert and in no apparent distress Head Head exam: atraumatic and normocephalic Eye Eye exam: Present PERRL and EOMI ENT ENT exam: Present mucous membranes moist and TM's normal bilaterally Neck Neck exam: Present normal inspection Chest Chest inspection: Present normal inspection and symmetric chest wall rise Respiratory Respiratory exam: Present normal lung sounds bilaterally; Absent respiratory distress Cardiovascular Cardiovascular exam: Present regular rate and normal rhythm Abdominal Exam Abdominal exam: Present soft; Absent tenderness Extremities Exam Extremities exam: Present normal inspection Neurological Exam Neurological exam: Present alert and CN II-XII intact; Absent motor sensory deficit Psychiatric Psychiatric exam: Present normal affect Skin Skin exam: Present warm and dry Medical Decision Making <Jose E Macias MD - Last Filed: 04/25/23 23:02> [facility] Inquiry Pt receiving controlled substance: No Vital Signs: 04/25/23 21:10 04/25/23 21:33 04/25/23 21:49 Temperature 98.3 F Temperature Source Oral Pulse Rate 95 H 90 Pulse Rate [Left] 97 H Respiratory Rate 20 Blood Pressure 131/97 H 139/86 Blood Pressure [Right Arm] 173/101 H Blood Pressure Mean [Right Arm] 125 02 Sat by Pulse Oximetry 100 100 98 Oxygen Delivery Method Room Air Lab Data Lab Results 04/25/23 21:39: WBC 10.1, RBC 4.89, Hgb 15.2, Hct 45.8, MCV 93.7, MCH 31.1, MCHC 33.2, RDW 13.7, Plt Count 382, MPV 7.6, Neut % (Auto) 59.6, Lymph % (Auto) 29.9, Blaine % (Auto) 5.7, Eos % (Auto) 3.5, Baso % (Auto) 1.2, Neut # (Auto) 6.0, Lymph # (Auto) 3.0, Blaine # (Auto) 0.6, Eos # (Auto) 0.4, Baso # (Auto) 0.1, Sodium 140, Potassium 3.7, Chloride 106, Carbon Dioxide 29, Anion Gap 8.7, BUN 8, Creatinine 0.50 L, Estimated Creat Clear 192, Estimated GFR 147, Est GFR ( Amer) 178, Glucose 95, Calcium 9.4, Total Bilirubin 0.4, AST 46 H, ALT 56, Alkaline Phosphatase 87, Total Protein 7.6, Albumin 4.6, Globulin 3.0, Albumin/Globulin Ratio 1.5, Serum HCG, Qual Negative, SARS-CoV-2 (PCR) Not detected, Influenza A Untype (PCR) Not detected, Influenza Type B (PCR) Not detected 04/25/23 21:39 04/25/23 21:39 Orders (Tests/Meds): ED MEDICATIONS Discontinued Medications Generic Name Dose Route Start Last Admin Trade Name Freq PRN Reason Stop Dose Admin Acetaminophen 1,000 mg 04/25/23 21:25 04/25/23 21:40 Acetaminophen 500mg Tab PO 04/25/23 21:26 1,000 mg ONCE ONE Administration Diphenhydramine HCl 50 mg 04/25/23 21:25 04/25/23 21:41 Diphenhydramine 50mg/Ml Vial IV 04/25/23 21:26 50 mg ONCE ONE Administration Lactated Ringer's 1,000 mls @ 999 mls/hr 04/25/23 21:25 04/25/23 21:42 Lactated Ringer's 1000 Ml Bag IV 04/25/23 22:25 999 mls/hr .Q1H1M ONE Administration Iopamidol 100 ml 04/25/23 22:45 04/25/23 22:46 Iopamidol-370 (76%);100ml Bottle IV 04/25/23 22:46 100 ml ONCE ONE Administration Ketorolac Tromethamine 15 mg 04/25/23 21:25 04/25/23 21:41 Ketorolac 30mg/Ml Vial IV 04/25/23 21:26 15 mg ONCE ONE Administration Ondansetron HCl 4 mg 04/25/23 21:58 04/25/23 22:01 Ondansetron 4mg Odt SL 04/25/23 21:59 4 mg ONCE ONE Administration Prochlorperazine Edisylate 5 mg 04/25/23 21:25 04/25/23 21:40 Prochlorperazine 10mg/2ml Vial IV 04/25/23 21:26 5 mg ONCE ONE Administration Sodium Chloride 50 ml 04/25/23 22:45 04/25/23 22:46 0.9 % Sodium Chloride 50 Ml Vial IV 04/25/23 22:46 50 ml ONCE ONE Administration Sodium Chloride 10 ml 04/25/23 22:45 04/25/23 22:46 Sodium Chloride 0.9% 10ml Syr (Rad Only) IV 04/25/23 22:46 10 ml ONCE ONE Administration ORDERS Category Date Time Status CT Venogram head Stat Cat Scan 04/25/23 21:[address] head/brain wo con Stat Cat Scan 04/25/23 21:25 Completed CBC w/Auto Diff [Complete Blood Count Auto Diff] Stat Lab 04/25/23 21:39 Completed CMP [Comprehensive Metabolic Panel] Stat Lab 04/25/23 21:39 Completed HCG Qualitative, Serum Stat Lab 04/25/23 21:39 Completed Rapid PCR Covid and Flu A/B Stat Lab 04/25/23 21:39 Completed EKG Request [ECG Request] Stat Y 04/25/23 21:28 Ordered ECG Data Tracing #1: Independently interpreted by me, rate is 97, rhythm is regular, axis is normal, no ST elevation in anatomical contiguous leads, QTc 414. Medical Decision Narrative: In summary patient is a 27-year-old female with past medical history described above presents emergency department for evaluation of dizziness, headache, transient visual blurriness. Patient is hemodynamically stable nontoxic- appearing upon arrival, afebrile with a nonfocal neurologic exam. Differential includes primary headache, venous sinus thrombosis, idiopathic intracranial hypertension, headache with vagal mediated response, vestibular neuritis, among others. Initial workup will be conducted with hematologic labs. Initial interventions include headache cocktail. After Compazine administration patient had vomiting for which Zofran will be administered. Initial workup reviewed by me, hematologic labs are nonactionable, patient is non. CT imaging and repeat evaluation pending at time of transfer of care to the oncoming physician, Dr. Manley. <Sanjay Manley MD - Last Filed: 04/26/23 00:00> Vital Signs: 04/25/23 21:10 04/25/23 21:33 04/25/23 21:49 Temperature 98.3 F Temperature Source Oral Pulse Rate 95 H 90 Pulse Rate [Left] 97 H Respiratory Rate 20 Blood Pressure 131/97 H 139/86 Blood Pressure [Right Arm] 173/101 H Blood Pressure Mean [Right Arm] 125 02 Sat by Pulse Oximetry 100 100 98 Oxygen Delivery Method Room Air Lab Data Lab Results 04/25/23 21:39: WBC 10.1, RBC 4.89, Hgb 15.2, Hct 45.8, MCV 93.7, MCH 31.1, MCHC 33.2, RDW 13.7, Plt Count 382, MPV 7.6, Neut % (Auto) 59.6, Lymph % (Auto) 29.9, Blaine % (Auto) 5.7, Eos % (Auto) 3.5, Baso % (Auto) 1.2, Neut # (Auto) 6.0, Lymph # (Auto) 3.0, Blaine # (Auto) 0.6, Eos # (Auto) 0.4, Baso # (Auto) 0.1, Sodium 140, Potassium 3.7, Chloride 106, Carbon Dioxide 29, Anion Gap 8.7, BUN 8, Creatinine 0.50 L, Estimated Creat Clear 192, Estimated GFR 147, Est GFR ( Amer) 178, Glucose 95, Calcium 9.4, Total Bilirubin 0.4, AST 46 H, ALT 56, Alkaline Phosphatase 87, Total Protein 7.6, Albumin 4.6, Globulin 3.0, Albumin/Globulin Ratio 1.5, Serum HCG, Qual Negative, SARS-CoV-2 (PCR) Not detected, Influenza A Untype (PCR) Not detected, Influenza Type B (PCR) Not detected Orders (Tests/Meds): ED MEDICATIONS Discontinued Medications Generic Name Dose Route Start Last Admin Trade Name Freq PRN Reason Stop Dose Admin Acetaminophen 1,000 mg 04/25/23 21:25 04/25/23 21:40 Acetaminophen 500mg Tab PO 04/25/23 21:26 1,000 mg ONCE ONE Administration Diphenhydramine HCl 50 mg 04/25/23 21:25 04/25/23 21:41 Diphenhydramine 50mg/Ml Vial IV 04/25/23 21:26 50 mg ONCE ONE Administration Lactated Ringer's 1,000 mls @ 999 mls/hr 04/25/23 21:25 04/25/23 21:42 Lactated Ringer's 1000 Ml Bag IV 04/25/23 22:25 999 mls/hr .Q1H1M ONE Administration Iopamidol 100 ml 04/25/23 22:45 04/25/23 22:46 Iopamidol-370 (76%);100ml Bottle IV 04/25/23 22:46 100 ml ONCE ONE Administration Ketorolac Tromethamine 15 mg 04/25/23 21:25 04/25/23 21:41 Ketorolac 30mg/Ml Vial IV 04/25/23 21:26 15 mg ONCE ONE Administration Ondansetron HCl 4 mg 04/25/23 21:58 04/25/23 22:01 Ondansetron 4mg Odt SL 04/25/23 21:59 4 mg ONCE ONE Administration Prochlorperazine Edisylate 5 mg 04/25/23 21:25 04/25/23 21:40 Prochlorperazine 10mg/2ml Vial IV 04/25/23 21:26 5 mg ONCE ONE Administration Sodium Chloride 50 ml 04/25/23 22:45 04/25/23 22:46 0.9 % Sodium Chloride 50 Ml Vial IV 04/25/23 22:46 50 ml ONCE ONE Administration Sodium Chloride 10 ml 04/25/23 22:45 04/25/23 22:46 Sodium Chloride 0.9% 10ml Syr (Rad Only) IV 04/25/23 22:46 10 ml ONCE ONE Administration ORDERS Category Date Time Status CT Venogram head Stat Cat Scan 04/25/23 21:[address] head/brain wo con Stat Cat Scan 04/25/23 21:25 Completed CBC w/Auto Diff [Complete Blood Count Auto Diff] Stat Lab 04/25/23 21:39 Completed CMP [Comprehensive Metabolic Panel] Stat Lab 04/25/23 21:39 Completed HCG Qualitative, Serum Stat Lab 04/25/23 21:39 Completed Rapid PCR Covid and Flu A/B Stat Lab 04/25/23 21:39 Completed EKG Request [ECG Request] Stat Y 04/25/23 21:28 Ordered Medical Decision Narrative: In summary patient is a 27-year-old female with past medical history described above presents emergency department for evaluation of dizziness, headache, transient visual blurriness. Patient is hemodynamically stable nontoxic- appearing upon arrival, afebrile with a nonfocal neurologic exam. Differential includes primary headache, venous sinus thrombosis, idiopathic intracranial hypertension, headache with vagal mediated response, vestibular neuritis, among others. Initial workup will be conducted with hematologic labs. Initial interventions include headache cocktail. After Compazine administration patient had vomiting for which Zofran will be administered. Initial workup reviewed by me, hematologic labs are nonactionable, patient is non. CT imaging and repeat evaluation pending at time of transfer of care to the oncoming physician, Dr. Manley. Sindhu GALVAN: I assumed care of the patient at the time of handoff from the prior provider. On reassessment patient reports complete symptomatic resolution. On my interpretation of her labs, she has a negative test, no leukocytosis, no significant electrolyte derangement, minimal AST elevation. On my interpretation of her imaging, the CT scans of the head show no acute venous sinus thrombosis, no large mass or bleeding or other emergent pathology. I had an interactive discussion with the patient regarding her presentation. I recommend she follow-up with PCP and potentially with neurology for these headaches. Critical Care <Jose E Macias MD - Last Filed: 04/25/23 23:02> Critical Care Time Critical Care Time: No
[2023-04-25 21:33] VITALS: BP 131/97; PULSE 95; O2SAT 100
[2023-04-25] MEDS: PROCHLORPERAZINE 10MG/2ML VIAL 5 MG IV (21:40)
[2023-04-25] MEDS: ACETAMINOPHEN 500MG TAB 1000 MG PO (21:40)
[2023-04-25] MEDS: KETOROLAC 30MG/ML VIAL 15 MG IV (21:41)
[2023-04-25] MEDS: diphenhydrAMINE 50MG/ML VIAL 50 MG IV (21:41)
[2023-04-25] MEDS: LACTATED RINGERS 1000ML 1,000 ML 999 ML IV (21:42)
--- NOTE | 2023-04-25 21:48 | PC.NURSE ---
Meds given and pt is comfortable at this time.
[2023-04-25 21:49] VITALS: BP 139/86; PULSE 90; O2SAT 98
[2023-04-25] MEDS: ONDANSETRON 4MG ODT 4 MG SL (22:01)
[2023-04-25 22:05] LABS: Coronavirus 19, PCR Not Detected (NotDetected); Influenza A, PCR Not Detected (NotDetected); Influenza B, PCR Not Detected (NotDetected)
[2023-04-25 22:08] LABS: Chloride 106 mmol/L (98-107); Potassium 3.7 mmoL/L (3.5-5.1); Sodium 140 mmol/L (136-145)
[2023-04-25 22:09] LABS: Basophils # 0.1 K/mm3 (0-0.2); Basophils % 1.2 % (0.1-2.0); Eosinophils # 0.4 K/mm3 (0.0-0.4); Eosinophils % 3.5 % (0.1-12.0); Hematocrit 45.8 % (37.0-47.0); Hemoglobin 15.2 g/dL (12.2-16.2); Lymphocytes % 29.9 % (10-50); Mean Corpuscular HGB Conc 33.2 g/dL (31.8-35.4); Mean Corpuscular Hemoglobin 31.1 pg (27.0-31.2); Mean Corpuscular Volume 93.7 fl (81-99); Mean Platelet Volume 7.6 fl (7.4-10.4); Monocytes # 0.6 K/mm3 (0.1-1.0); Monocytes % 5.7 % (1.7-9.3); Neutrophils % 59.6 % (37.0-80.0); Platelet Count 382 K/mm3 (142-424); Red Blood Count 4.89 M/mm3 (4.20-5.40); Red Cell Distribution Width 13.7 % (11.5-17.5); White Blood Count 10.1 K/mm3 (4.8-10.8)
[2023-04-25 22:11] LABS: Alanine Aminotransferase 56 U/L (12-78); Albumin Level 4.6 g/dl (3.5-5.0); Albumin/Globulin Ratio 1.5 (1.1-1.8); Alkaline Phosphatase 87 U/L (38-126); Anion Gap 8.7 mEq/L (5-15); Aspartate Amino Transferase 46 U/L (14-36); Bilirubin,Total 0.4 mg/dl (0.2-1.3); Blood Urea Nitrogen 8 mg/dl (7-17); Carbon Dioxide 29 mmol/L (22.0-30.0); Creatinine Clearance Estimated 192 mL/min (50-200); Estimated Glomerular Filt Rate 147 ml/min (>60); GFR (African American) 178 ML/MIN (>60); Total Protein,Serum 7.6 g/dl (6.3-8.2)
[2023-04-25 22:12] LABS: Calcium 9.4 mg/dl (8.4-10.2); Glucose 95 mg/dl (74-100)
[2023-04-25 22:18] LABS: HCG Qualitative, Serum Negative (Negative)
[2023-04-25] MEDS: 0.9 % SODIUM CHLORIDE 50 ML VIAL IV (22:46)
[2023-04-25] MEDS: IOPAMIDOL-370 (76%);100ML BOTTLE 100 ML IV (22:46)
[2023-04-25] MEDS: SODIUM CHLORIDE 0.9% 10ML SYR (RAD ONLY) 10 ML IV (22:46)
[2023-04-25 23:57] VITALS: BP 111/71; PULSE 84; RESP 18; TEMP 36.8; O2SAT 97
== END 2023-04-26 00:02 | disposition home or self-care (01) ==
PROVIDERS: Emergency Provider Emergency Medicine; PCP Nurse Practitioner Family
DX: G44.89 Other headache syndrome (principal); R42 Dizziness and giddiness; H53.8 Other visual disturbances; R03.0 Elevated blood-pressure reading, without diagnosis of hypertension; F17.210 Nicotine dependence, cigarettes, uncomplicated
CPT/HCPCS: 70450; 70496; 80053; 84703; 85025; 87636; 93005; 96361; 96374; 96375; 99285; Q9967

== ENCOUNTER 2023-04-29 07:51 | Outpatient (CLI) | payer BC, SELFPAY | END 2023-04-29 23:59 | LOC: RT 07:51 | PROVIDERS: PCP Nurse Practitioner Family; Visit Provider Nurse Practitioner Family | DX: R06.00 Dyspnea, unspecified (principal) | CPT/HCPCS: 94060 ==

== ENCOUNTER 2023-05-03 15:45 | Outpatient (CLI) | payer BC, SELFPAY | END 2023-05-03 23:59 | LOC: RT 15:46 | PROVIDERS: PCP Nurse Practitioner Family; Visit Provider Physician Assistant | DX: R00.2 Palpitations (principal); R07.9 Chest pain, unspecified; R06.00 Dyspnea, unspecified; F17.210 Nicotine dependence, cigarettes, uncomplicated | CPT/HCPCS: 93270 ==

== ENCOUNTER 2023-05-13 18:55 | Outpatient (CLI) | payer BC, SELFPAY | END 2023-05-13 23:59 | LOC: LAB.DROPOF 18:55 | PROVIDERS: PCP Nurse Practitioner Family; Visit Provider Nurse Practitioner Family | DX: N39.0 Urinary tract infection, site not specified (principal); B96.29 Other Escherichia coli [E. coli] as the cause of diseases classified elsewhere | CPT/HCPCS: 87086 ==

== ENCOUNTER 2023-05-24 17:29 | Outpatient (CLI) | payer BC, SELFPAY | END 2023-05-24 23:59 | LOC: LAB.DROPOF 17:30 | PROVIDERS: PCP Nurse Practitioner Family; Visit Provider Nurse Practitioner Family | DX: N39.0 Urinary tract infection, site not specified (principal); B96.29 Other Escherichia coli [E. coli] as the cause of diseases classified elsewhere; B96.89 Other specified bacterial agents as the cause of diseases classified elsewhere | CPT/HCPCS: 87086 ==

== ENCOUNTER 2023-06-01 07:51 | Outpatient (CLI) | payer BC, SELFPAY ==
[2023-06-01 08:34] LABS: Bilirubin,Unconjugated 0.3 mg/dL (0.0-1.1)
[2023-06-01 08:35] LABS: Alanine Aminotransferase 30 U/L (12-78); Albumin Level 3.9 g/dl (3.5-5.0); Alkaline Phosphatase 74 U/L (38-126); Aspartate Amino Transferase 28 U/L (14-36); Bilirubin,Direct 0.2 mg/dl (0.0-0.4); Bilirubin,Indirect 0.3 mg/dL (0.0-0.9); Bilirubin,Total 0.5 mg/dl (0.2-1.3); Chol/HDL Ratio 3.4 (1-3.5); Cholesterol 106 mg/dl (140-200); HDL Cholesterol 31 mg/dl (40-60); Total Protein,Serum 6.3 g/dl (6.3-8.2); Triglycerides 84 mg/dl (30-150); VLDL Cholesterol 17 mg/dL (0-40)
[2023-06-01 08:46] LABS: Direct LDL Cholesterol 44.13 mg/dL (100-129)
[2023-06-01 09:05] LABS: Thyroid Stimulating Hormone 1.15 uIU/mL (0.465-4.68)
[2023-06-01 09:15] LABS: Chloride 110 mmol/L (98-107); Potassium 4.2 mmoL/L (3.5-5.1); Sodium 139 mmol/L (136-145)
[2023-06-01 09:18] LABS: Blood Urea Nitrogen 11 mg/dl (7-17); Calcium 9.5 mg/dl (8.4-10.2); Estimated Glomerular Filt Rate 119 ml/min (>60); GFR (African American) 144 ML/MIN (>60); Glucose 91 mg/dl (74-100)
[2023-06-01 09:21] LABS: Anion Gap 9.2 mEq/L (5-15); Carbon Dioxide 24 mmol/L (22.0-30.0)
[2023-06-01 09:35] LABS: Free T4 (Free Thyroxine) 0.98 ng/dl (0.78-2.19)
== END 2023-06-01 23:59 | disposition home or self-care (01) ==
LOC: LAB 07:52
PROVIDERS: PCP Nurse Practitioner Family; Visit Provider Physician Assistant
DX: R00.2 Palpitations (principal); R07.9 Chest pain, unspecified; R06.00 Dyspnea, unspecified; F17.210 Nicotine dependence, cigarettes, uncomplicated
CPT/HCPCS: 36415; 80048; 80061; 80076; 84439; 84443

== ENCOUNTER 2023-06-08 12:35 | Outpatient (CLI) | payer BC, SELFPAY | END 2023-06-08 23:59 | LOC: LAB.DROPOF 12:36 | PROVIDERS: PCP Nurse Practitioner Family; Visit Provider Nurse Practitioner Family | DX: M54.9 Dorsalgia, unspecified (principal); R39.15 Urgency of urination; B96.29 Other Escherichia coli [E. coli] as the cause of diseases classified elsewhere; B96.89 Other specified bacterial agents as the cause of diseases classified elsewhere | CPT/HCPCS: 87086 ==

== ENCOUNTER 2023-06-16 17:03 | Outpatient (CLI) | payer BC, SELFPAY | END 2023-06-16 23:59 | disposition home or self-care (01) | LOC: LAB.DROPOF 17:03 | PROVIDERS: PCP Nurse Practitioner Family; Visit Provider Nurse Practitioner Family | DX: R30.0 Dysuria (principal); B96.89 Other specified bacterial agents as the cause of diseases classified elsewhere | CPT/HCPCS: 87086 ==

== ENCOUNTER 2023-06-18 15:56 | Outpatient (CLI) | payer BC, SELFPAY ==
[2023-06-18 16:28] LABS: Basophils # 0.2 K/mm3 (0-0.2); Basophils % 1.5 % (0.1-2.0); Eosinophils # 0.3 K/mm3 (0.0-0.4); Eosinophils % 2.4 % (0.1-12.0); Hematocrit 46.9 % (37.0-47.0); Hemoglobin 15.3 g/dL (12.2-16.2); Lymphocytes # 3.1 K/mm3 (0.7-4.5); Lymphocytes % 25.5 % (10-50); Mean Corpuscular HGB Conc 32.7 g/dL (31.8-35.4); Mean Corpuscular Hemoglobin 30.6 pg (27.0-31.2); Mean Corpuscular Volume 93.7 fl (81-99); Mean Platelet Volume 7.6 fl (7.4-10.4); Monocytes # 0.5 K/mm3 (0.1-1.0); Monocytes % 4.1 % (1.7-9.3); Neutrophils % 66.4 % (37.0-80.0); Platelet Count 381 K/mm3 (142-424); Red Blood Count 5.01 M/mm3 (4.20-5.40)
[2023-06-18 18:11] LABS: Alanine Aminotransferase 27 U/L (12-78); Albumin Level 4.7 g/dl (3.5-5.0); Albumin/Globulin Ratio 1.7 (1.1-1.8); Alkaline Phosphatase 72 U/L (38-126); Anion Gap 16.5 mEq/L (5-15); Aspartate Amino Transferase 28 U/L (14-36); Bilirubin,Total 0.7 mg/dl (0.2-1.3); Blood Urea Nitrogen 15 mg/dl (7-17); Calcium 10.2 mg/dl (8.4-10.2); Carbon Dioxide 24 mmol/L (22.0-30.0); Chloride 104 mmol/L (98-107); Estimated Glomerular Filt Rate 85 ml/min (>60); GFR (African American) 103 ML/MIN (>60); Globulin 2.8 g/dL (1.3-3.2); Glucose 94 mg/dl (74-100); Potassium 4.5 mmoL/L (3.5-5.1); Sodium 140 mmol/L (136-145); Total Protein,Serum 7.5 g/dl (6.3-8.2)
== END 2023-06-18 23:59 | disposition home or self-care (01) ==
LOC: LAB 15:56
PROVIDERS: PCP Nurse Practitioner Family; Visit Provider Obstetrics & Gynecology
DX: N39.0 Urinary tract infection, site not specified (principal)
CPT/HCPCS: 36415; 80053; 85025

== ENCOUNTER 2023-06-21 15:09 | Outpatient (CLI) | payer BC, SELFPAY ==
--- NOTE | 2023-06-21 15:16 | CA_ITS ---
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 2D Dimensions Left Atrium 3.11 cm F: 2.7 - 3.8 LVEF (Ferrell's) 58.80 % F: 54 - 74 LVOT 1.92 cm (M/F) 1.5-2.5 LV Volume 102.70 mL F: 46 - 106 LV Volume Index 56.4 mL/m2 F: 29 - 61 EF AP4 61.50 % EF AP2 58.3 % EF BP 58.8 % GL Strain -19.8 % M-Mode Dimensions RVDd 1.71 cm (0.9-2.6) LVDd 4.82 cm (3.5-5.7) Ao Diam 2.52 cm (2.0-3.7) LVDs 3.25 cm (3.5-5.7) IVSd 0.60 cm (0.6-1.1) PWd 0.70 cm (0.6-1.1) EF (Teich) 60.90% FS 32.60% EDV (Teich) 108.60 mL ESV (Teich) 42.50 mL LV Diastology E Decel Time 257 (160-240 msec) E/A Ratio 2.5 MED E' 15.2 (>= 7 cm/sec) E'/MED E' Ratio 7.03 (<= 14) LAT E' 17.9 (>= 10 cm/sec) E/LAT E' Ratio 5.97 (<= 14) Mitral Valve MV E Max Ronald. 107.0 (40-130 cm/s) MV A Velocity 43.0 (40-130 cm/s) E/A Ratio 2.46 MV Decel. Time 257 (160-240 ms) Left Ventricle The left ventricle is normal size. The left ventricular systolic function is normal. The left ventricular ejection fraction is within the normal range. There is normal left ventricular wall thickness. There is normal LV segmental wall motion. The left ventricular diastolic function is normal. LVEF is 55%. Right Ventricle The right ventricle is normal size. The right ventricular systolic function is normal. Atria The left atrium size is normal. The right atrium size is normal. There is no Doppler evidence of interatrial shunt. Aortic Valve The aortic valve opens well. There is no aortic valvular stenosis. No aortic regurgitation is present. Mitral Valve The mitral valve is normal in structure. No evidence of mitral valve stenosis. There is no mitral valve regurgitation noted. Tricuspid Valve The tricuspid valve leaflets are thin and pliable. Trace tricuspid regurgitation. There is insufficeint TR jet to estimate RVSP. Pulmonic Valve The pulmonary valve is normal in structure. Mild pulmonic regurgitation. Great Vessels The aortic root is normal in size. The ascending aorta is normal in size. IVC is normal in size and collapses >50% with inspiration. Pericardium There is no pericardial effusion. Other Information Study Quality: Adequate Conclusion Normal biventricular systolic function. Mild CT. Electronically signed by : Hetal Costello MD 06/27/2023 15:00:58
== END 2023-06-21 23:59 | disposition home or self-care (01) ==
LOC: RT 15:10
PROVIDERS: PCP Nurse Practitioner Family; Visit Provider Physician Assistant
DX: R06.00 Dyspnea, unspecified (principal); R07.9 Chest pain, unspecified; R00.2 Palpitations; F17.210 Nicotine dependence, cigarettes, uncomplicated
CPT/HCPCS: 93306

== ENCOUNTER 2023-06-25 08:04 | Outpatient (CLI) | payer BC, SELFPAY ==
--- NOTE | 2023-06-25 08:18 | US_ITS ---
PROCEDURE: US TRANSVAGINAL CLINICAL INDICATION: AUB COMPARISON: No exams were available for comparison FINDINGS: Transvaginal sonographic images of the pelvis were obtained. UTERUS: 7.1cm x 4.8 cmx 3.8 cm anteverted with a combined endometrial thickness of 8.4mm. LEFT OVARY: 3.4cmx2.0cmx2.1cm with a volume of 7.7ml. There are multiple small peripheral follicles. RIGHT OVARY: 3.8 cmx 3.0cmx2.8 cm with a volume of 16.5ml. There are multiple small peripheral follicles. Both ovaries are seen and appear normal. Doppler flow to both ovaries are seen. There is no fluid in the cul-de-sac. IMPRESSION: 1. Anteverted uterus normal in shape and size. The endometrium appears normal. 2. Both ovaries are seen and have a polycystic appearance. 3. No fluid in cul-de-sac. Dictated by: Marc Mayfield MD 06/26/2023 08:32 Marc Mayfield MD in OV 06/26/2023 08:32
== END 2023-06-25 23:59 | disposition home or self-care (01) ==
LOC: RAD 08:04
PROVIDERS: PCP Nurse Practitioner Family; Visit Provider Obstetrics & Gynecology
DX: N93.9 Abnormal uterine and vaginal bleeding, unspecified (principal)
CPT/HCPCS: 76830

== ENCOUNTER 2023-06-28 15:28 | Outpatient (CLI) | payer BC, SELFPAY ==
[2023-07-04 06:48] LABS: Atopobium vaginae Low - 0 Score (.); BVAB2 Low - 0 Score (.); Candida albicans NAA Negative (Negative); Candida glabrata Negative (Negative); Chlamydia Trachomatis NAA Negative (Negative); HSV 1 NAA Negative (Negative); HSV 2 NAA Negative (Negative); Megasphaera 1 Low - 0 Score (.); Neisseria gonorrhoeae NAA Negative (Negative)
[2023-07-10 09:50] LABS: Miscellaneous Test SCANNED IMAGE
== END 2023-06-28 23:59 | disposition home or self-care (01) ==
LOC: LAB.DROPOF 15:29
PROVIDERS: PCP Urology; Visit Provider Urology
DX: N39.0 Urinary tract infection, site not specified (principal); B96.1 Klebsiella pneumoniae [K. pneumoniae] as the cause of diseases classified elsewhere
CPT/HCPCS: 87086; 87088; 87186; 87491; 87529; 87591; 87661; 87798; 87801

== ENCOUNTER 2023-07-02 15:46 | Outpatient (CLI) | payer BC, SELFPAY ==
--- NOTE | 2023-07-02 15:46 | US_ITS ---
FINAL REPORT CLINICAL HISTORY: frequent UTIs FINDINGS: RENAL ULTRASOUND Ultrasound images of the kidneys were obtained. The right kidney measures 10.4 cm in length. It is normal echogenicity. There is questionable mild caliectasis. There are questionable small right renal stones. The left kidney measures 12.6 cm in length. It is normal echogenicity. There is no hydronephrosis. IMPRESSION: Questionable mild right caliectasis and questionable small right renal stones. The left kidney appears normal. Reviewed, Interpreted and Dictated by Watson Rapp III, MD Transcribed by Maddy Barahona Authenticated and [facility]
--- NOTE | 2023-07-02 16:05 | XR_ITS ---
FINAL REPORT CLINICAL HISTORY: Dyspareunia FINDINGS: A single view of the abdomen was obtained. There is a nonobstructive bowel gas pattern. There is a moderate amount of retained stool. There are no abnormally dilated loops of small bowel. There are no abnormal calcifications. IMPRESSION: Nonobstructive bowel gas pattern with a moderate amount of retained stool. Reviewed, Interpreted and Dictated by Watson Rapp III, MD Transcribed by Maddy Barahona Authenticated and [facility]
== END 2023-07-02 23:59 | disposition home or self-care (01) ==
LOC: RAD 15:46
PROVIDERS: PCP Nurse Practitioner Family; Visit Provider Urology
DX: N39.0 Urinary tract infection, site not specified (principal)
CPT/HCPCS: 74018; 76770

== ENCOUNTER 2023-08-18 13:13 | Outpatient (CLI) | payer BC, SELFPAY | END 2023-08-18 23:59 | disposition home or self-care (01) | LOC: LAB.DROPOF 13:14 | PROVIDERS: PCP Nurse Practitioner Family; Visit Provider Nurse Practitioner Family | DX: J02.9 Acute pharyngitis, unspecified (principal); D72.829 Elevated white blood cell count, unspecified | CPT/HCPCS: 87070 ==

== ENCOUNTER 2023-08-19 06:55 | Observation (INO) | payer BC, SELFPAY ==
[2023-08-17 12:48] VITALS: BMI 26.6
[2023-08-19] VITALS (19 sets, daily range): BP systolic 88–132; BP diastolic 43–80; PULSE 63–102; RESP 14–18; TEMP 36.1–43; O2SAT 94–98
[2023-08-19] MEDS: LACTATED RINGERS 1000ML 1,000 ML 25 ML IV (06:57)
--- NOTE | 2023-08-19 07:26 | EXP.HP ---
History of Present Illness *Admission Date: 08/19/23 *Reason for visit:: post op hysterectomy *History of present illness: Nighat Mi is a 27yo (SVDx2) presenting today for a TVH, salpingectomy, and cystoscopy with hydrodistension. Pt reports she is very anxious and nervous about this surgery, but also desires to get it over with as she is bleeding so heavy. Previous HPI: -C/o of constant dysuria. Previously had hydrodistension and stated significantly improved. Dr. Wen, urologist diagnosed with IC -Recently completed course of Abx for positive urine culture with greater than 100,000 CFU of Enterococcus faecalis. Fosfomycin sent to [facility] and patient states she completed the course on 06/24/2023. Patient states that she has had greater than 6 UTIs this year. -She also complains of dyspareunia and painful very heavy bleeding. Patient has pictures on her phone of very large clots. -She said tubal ligation for contraception -Reports that she has 1 day where she will have 7 bowel movements and then she will have another bowel movement for 3 days. Her bowels have been regular for several years now. -Declines ever receiving the HPV vaccine -Reports she is never had an abnormal Pap smear -Denies any STD history. Reports she is sexually active and has no concerns. In a safe monomagous relationship, feels safe in work and home life. endorses dyspareunia, and deep penetration with certain postions but not all the time. denies insertional pain. -Denies anxiety or depression concerns. -Reports daily tobacco use. Denies any alcohol or illicit drug use. -FHX: denies breast, ovarian, colon or uterine cancer. 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 BP problems G2- SAB WITH D&C G3: full term . BP problems [facility] Disclaimer: The information contained in this section may have been updated after the patient was seen, as this information can be updated by other users. Medical History Pelvic pain Gastroenteritis Tingling of left upper extremity Left breast lump 6:00 location Pain of left breast Lumbar nerve root impingement Lumbar disc disease with radiculopathy Low back pain History of renal calculi Bilateral flank pain Lumbar back pain with radiculopathy affecting lower extremity Family history of Crohn's disease Paternal aunt Dilation of bladder Diarrhea chronic x 1 year DDD (degenerative disc disease), cervical 01/2022 Chest pain Migraine Tachycardia Abdominal pain Surgical History H/O laparoscopy H/O cystoscopy H/O tubal ligation Family History Father Diabetes Coronary artery disease Hypertension Heart attack, Onset Age: 39 Mother Thyroid disorder Unknown Cancer Aunt on Mom's side that had pancreatic cancer Social History (Updated 08/19/23 @ 06:34 by Ayla Schroeder RN) Smoking Status: Current every day smoker tobacco type: cigarettes packs per day: 1 smoking status start date: 2010 quit status: not considering quitting second hand exposure: Yes alcohol intake: never substance use type: denies use current occupational status: employed Travel in the last 8 weeks: None household members: spouse housing: house current occupation: [employer] current occupational exposures/hazards: Yes caffeine: Yes physical activity: walking do you feel safe at home: Yes victim of physical abuse: No victim of emotional abuse: No victim of sexual abuse: No Review of Systems Review of Systems Review of systems (narrative): Const: Denies headaches, fever/chills, weakness Eyes: Denies change in vision Cardiorespiratory: Denies chest pain, shortness of breath, and cough GI: Denies abdominal pain, change in BM, nausea, vomiting, constipation, diarrhea : + Dysmenorrhea, dyspareunia, heavy vaginal bleeding; endorses dysuria and frequent UTI. Denies pelvic pain, genital lesions, vaginal itching and odor; denies leakage of urine, urinary urgency, frequency, and hematuria Denies depression and anxiety Denies change in libido Meds Home Medications and Allergies Home Medications Medication Instructions Recorded Confirmed Type hyoscyamine sulfate 0.125 mg tablet 0.125 mg PO DAILYP PRN bowel spasm 05/03/23 08/19/23 History ibuprofen 800 mg tablet 800 mg PO Q8HP PRN Mild Pain 08/17/23 08/19/23 History (Scale Score 1-4) cefdinir 300 mg capsule 300 mg PO BID 10 days #20 caps 08/18/23 08/19/23 Rx omeprazole 20 mg capsule,delayed 20 mg PO DAILY #30 caps 08/18/23 08/19/23 Rx release New Prescriptions to Start Prescriptions: Allergies Allergy/AdvReac Type Severity Reaction Status Date / Time diphenhydramine AdvReac Vomiting Verified 08/19/23 07:13 prochlorperazine AdvReac Vomiting Verified 08/19/23 06:17 [From Compazine] Exam Data for Last 24 hours Vital signs and Labs for Last 24 Hours: Pulse Resp BP Pulse Ox O2 Del Method 91 H 16 132/80 96 Room Air 08/19/23 06:19 08/19/23 06:19 08/19/23 06:19 08/19/23 06:19 08/19/23 06:19 I & O for Last 24 hours: Intake & Output 08/16/23 08/17/23 08/18/23 08/19/23 23:59 23:59 23:59 23:59 Weight 160 lb Constitutional Constitutional: no acute distress *Routine HEENT Exam Head: Present normocephalic Eye: Present EOMI and PERRL ENT: Present mucous membranes moist *Routine Neck Exam Neck: Present supple; Absent lymphadenopathy *Routine Respiratory Exam Respiratory: Present CTA bilaterally *Routine Cardiovascular Exam Cardiovascular: Present RRR *Routine Abdominal Exam Abdominal: Present soft and normoactive bowel sounds; Absent tenderness *Routine Rectal Exam Rectal:: deferred *Routine Genitalia Exam Genitalia:: deferred *Routine Extremities Exam Extremities: Absent cyanosis, clubbing or edema *Routine Skin Exam Skin: Present warm; Absent rash *Routine Neurological Exam Neurological: Present alert and oriented X3 Assessment and Plan *Assessment and plan (1) Dysmenorrhea: Status: Acute Category: Medical Code(s): N94.6 - Dysmenorrhea, unspecified (2) Menorrhagia: Status: Acute Category: Medical Code(s): N92.0 - Excessive and frequent menstruation with regular cycle (3) Pelvic pain: Status: Acute Category: Medical Code(s): R10.2 - Pelvic and perineal pain (4) Dyspareunia: Status: Acute Category: Medical Plan #annual -2 vaginal deliveries -Had a Pap smear in 2022, per patient -Given her daily tobacco use she is not a great candidate for OCPs -Given her young age she is not an excellent candidate for an endometrial ablation -Patient desires definitive surgical management for menorrhagia, dysmenorrhea, and dyspareunia. Transvaginal ultrasound was reviewed and within normal limits. Patient will need an updated Pap smear prior to proceeding with hysterectomy. She has had 2 vaginal deliveries -Plan for TVH, salpingectomy, and cystoscopy/hydrodistention -TVUS: Uterus: 7.1 x 4.8 x 3.8 cm. The endometrium measures 8.4 mm. Anteverted and normal in size and shape Ovaries: The right ovary measure 3.8 x 3.0 x 2.8 cm. With an ovarian volume of 16.5 mL and multiple small peripheral follicles noted. The left ovary measure 3.4 x 2.0 x 2.1 cm. With an ovarian volume of 7.7 mL. No evidence of adnexal mass or free fluid in the pelvic cavity. -The patient is requesting definitive surgical management with hysterectomy. She declines medical intervention. Reviewed the risks of major gynecologic surgery with the pt to include bleeding, infection and risk of damage to surrounding structures. She thoroughly understands the risk of hysterectomy. Discussed risks of bleeding and pt consented to blood transfusion if deemed medically necessary. Discussed risks of infection, states she has no allergies to antibiotics and we will use ancef for infection ppx. Discussed risks of injury to the surrounding structures to include her bowel, bladder, ureters, and neurovascular bundles. Discussed that this could require further surgeries and prolong recovery and hospital stay. Discussed risk of fistula formation. Discussed that she would stay overnight to ensure adequate pain control and that she met all postop milestones and pt agreed. She voiced understanding of all risks. I ensured she understood with teachback method of risks. Pt desires to proceed with TVH, bilateral salpingectomy, Dominguez culdoplasty, and cystoscopy/hydrodistention. possible ROLF. Possible BSO -Infection prophylactic antibiotics ordered: Ancef 2g and 500mg IV metronidazole -Reviewed with the pt the risk that hysterectomy may not alleviate her pelvic pain. Pt voiced understanding of the risks and consented to hysterectomy. #Previously diagnosed with interstitial cystitis #Recurrent urinary tract infection -Patient is requesting hydrodistention at time of hysterectomy. We will assess for Hunner's lesions and perform with routine cystoscopy following hysterectomy
--- NOTE | 2023-08-19 07:46 | HMH.PHAINT1 ---
Pharmacy Intervention Comments: MEDICATION RECONCILIATION COMPLETED ON PATIENT USING EXTERNAL FILL HISTORY FROM PHARMACY AND LIST FROM PCP OFFICE. -NIDA VALDEZ, SHERIFD
--- NOTE | 2023-08-19 08:00 | EXP.ANES.CKL ---
[facility] Disclaimer: The information contained in this section may have been updated after the patient was seen, as this information can be updated by other users. Medical History Pelvic pain Gastroenteritis Tingling of left upper extremity Left breast lump 6:00 location Pain of left breast Lumbar nerve root impingement Lumbar disc disease with radiculopathy Low back pain History of renal calculi Bilateral flank pain Lumbar back pain with radiculopathy affecting lower extremity Family history of Crohn's disease Paternal aunt Dilation of bladder Diarrhea chronic x 1 year DDD (degenerative disc disease), cervical 01/2022 Chest pain Migraine Tachycardia Abdominal pain Surgical History H/O laparoscopy H/O cystoscopy H/O tubal ligation Family History Father Diabetes Coronary artery disease Hypertension Heart attack, Onset Age: 39 Mother Thyroid disorder Unknown Cancer Aunt on Mom's side that had pancreatic cancer Social History (Updated 08/19/23 @ 06:34 by Ayla Schroeder RN) Smoking Status: Current every day smoker tobacco type: cigarettes packs per day: 1 smoking status start date: 2010 quit status: not considering quitting second hand exposure: Yes alcohol intake: never substance use type: denies use current occupational status: employed Travel in the last 8 weeks: None household members: spouse housing: house current occupation: [employer] current occupational exposures/hazards: Yes caffeine: Yes physical activity: walking do you feel safe at home: Yes victim of physical abuse: No victim of emotional abuse: No victim of sexual abuse: No [facility] Anesthesia Checklist Patient Identification Patient Identification: Verbal (Name & ) Structural Data Admitted From: Home Planned Operative Procedure/s: [facility] Consent for Planned Operative Procedure(s) Verified: Yes NPO Status Verified Time NPO: 00:00 Additional verifications Anesthesia Reactions: No Hx Blood Transfusions: No Blood Transfusion Reaction: No Airway Assessment Mallampati Score:: Class II C-Spine Mobility Assessed: Yes TMJ Mobility Assessed: Yes Dentition: Good Dentition Neurological Assessment Level of Consciousness: Awake, Alert and Appropriate Anesthesia Plan Anesthesia Risk discussed: Yes Anesthesia Plan: Verified ASA Class: II Anesthesia Type: General
[2023-08-19] MEDS: METRONIDAZ/SOD CHL 500 MG/100 ML PIGGYBACK 100 MG IV (08:25)
[2023-08-19] MEDS: CEFAZOLIN SODIUM 2 GM in 0.9 % SODIUM CHLORIDE 100 ML IV (08:26)
[2023-08-19] MEDS: METHYLENE BLUE 0.5% 10ML AMPULE 50 MG IV (08:32)
[2023-08-19] MEDS: LIDOCAINE 1% W/EPI 1:100,000 20ML VIAL 20 ML (08:32)
--- NOTE | 2023-08-19 08:58 | P.PNANES_ITS ---
[facility] Anesthesia Record Part I Anesthesia Record I Intake, IV Amount: 1,600 Hydration: Adequate Estimated blood loss (mL): 10 Urine output (mL): 250 Blood Pressure: 125/70 SaO2: 97 Pulse Rate: 98 Airway Patency: Patent Respiratory Rate: 14 Temperature: 97.5 F Patient is:: Awake and Stable Stable to PACU at:: 08:55
[2023-08-19] MEDS: MEPERIDINE 25MG/ML 1ML SYRINGE 25 MG IV (09:07)
[2023-08-19] MEDS: MORPHINE 2MG/ML SYRINGE 2 MG IV (09:07)
--- NOTE | 2023-08-19 09:15 | P.OP_ITS ---
Date of procedure: 08/19/23 Pre-op Diagnosis:: 1. Abnormal uterine bleeding 2. Heavy uterine bleeding 3. Dysmenorrhea 4. Pelvic pain 5. Dyspareunia 6. Dysuria 7. Recurrent urinary tract infections 8. Suspected interstitial cystitis Post-op Diagnosis:: 1. Abnormal uterine bleeding 2. Heavy uterine bleeding 3. Dysmenorrhea 4. Pelvic pain 5. Dyspareunia 6. Dysuria 7. Recurrent urinary tract infections 8. Suspected interstitial cystitis Procedure performed:: 1. Total vaginal hysterectomy 2. Cystoscopy with hydrodistention Surgeon:: Sonali Rich DO Collateral Analyst(s):: Lizy Sebastian DO GERMAN PROFESSOR:: Sarkis Arriaza Anesthesia: GETA Estimated blood loss (mL): 10 Operative findings:: Uterine EUA was significant for 8wk size uterus with regular borders at the fundus. Grade 2 uterine descent was appreciated. Appropriate uterine mobility. No apical or posterior wall prolapse. No gross adnexal masses were appreciated. Operative note:: Pt was taken back to the OR where GETA was obtained without difficulty. SCDs were placed and found to be working. The patient was placed in dorsal lithotomy position using yellowfin stirrups. The vagina was prepped and draped in the normal sterile fashion. An in and out catheter was used to drain the bladder and 20 mL of methylene blue normal saline were inserted into the bladder. A weighted speculum and Will were used to visualize the cervix. Two Mena tenaculums were used to grasp the anterior and posterior ectocervix on the right and left. A scalpel was used to make a circumferential incision at the cervicovaginal junction. A raytec was used to bluntly dissect the paracervical fascia from the cervix off the vaginal mucosa. Metzenbaum scissors and pickups were used to enter the colpotomy posteriorly and a long weighted speculum was placed. Abdominal entry was confirmed by the presence of the ovary and omentum. The left uterosacral ligament was grasped with a kalyan clamp, cut, and suture ligated with 0-Vicryl. This was tagged for later incorporation to the cuff. This process was repeated on the contralateral side. The anterior vaginal tissue was further dissected off the cervix. Pickups and Metzenbaum scissors were used to make the anterior colpotomy. A [place] retractor was placed. Entry to the abdominal cavity was confirmed with the presence of omentum and the left ovary was visualized. The Enseal was used to dissect the broad ligament down the lateral aspect of the uterine body on the left side. The cardinal ligaments and uterine vessels were identified bilaterally, grasped with the Enseal, coagulated and transected. This process was repeated on the right. A sponge stick was placed to create a safe distance from the bowel and omentum in the surgical field. The utero-ovarian ligament was clamped, coagulated and transected on the left. At this time there was only a very small amount of the broad ligament and the round ligament noted to be attached on the right. The Enseal was used to take this down. The uterus was free and removed from the vagina, passed off the operative field and sent to pathology for evaluation. Fallopian tubes were not visualized. The anterior peritoneum was grasped with an Allis and the peritoneum was pursestringed closed with a 0 Vicryl. 0-PDS was used to place a Dominguez stitch for the culdoplasty, incorporating the bilateral uterosacral ligaments. The vaginal cuff was then closed with 0 Vicryl in a running locking fashion. Dominguez culdoplasty was tied to suspend the apex of the vagina. Hemostasis was noted. Cystoscopy Cystoscopy was performed with a 70 degree cystoscope and distended with sterile water. Inspection of the bladder showed a normal-looking, smooth bladder mucosa with no evidence of injury, suture, puckering, or other abnormalities.? Both ureteral meatuses were visualized and were noted to be expelling urine in routine fashion.? The bladder was hydrodistended with the sterile water and an 8-minute timer was set. No significant Hunner's lesions were noted. There were some very mild scarring areas noted. Following the 8-minute timer the bladder was completely emptied and the cystoscope was removed. Sponge, instrument and needle counts were correct x3, per nursing. The patient was awakened from general anesthesia and transferred to the PACU in stable condition. Condition: stable Disposition: floor Specimens:: Uterine body and cervix Complications:: None
--- NOTE | 2023-08-19 09:22 | PC.NURSE ---
Report received from Ana Rosa (PACU)
[2023-08-19] MEDS: KETOROLAC 30MG/ML VIAL 30 MG IV ×2 (10:19→16:21)
[2023-08-19] MEDS: LACTATED RINGERS 1000ML 1,000 ML 125 ML IV (10:20)
[2023-08-19] MEDS: ACETAMINOPHEN 500MG TAB 1000 MG PO ×2 (10:20→16:20)
[2023-08-19] MEDS: OXYCODONE 5MG IMMEDIATE RELEASE TABLET 5 MG PO ×2 (12:25→16:21)
[2023-08-19 13:15] LABS: Basophils % 0.1 % (0.1-2.0); Eosinophils # 0.1 K/mm3 (0.0-0.4); Eosinophils % 0.4 % (0.1-12.0); Hematocrit 40.9 % (37.0-47.0); Hemoglobin 13.7 g/dL (12.2-16.2); Lymphocytes # 0.8 K/mm3 (0.7-4.5); Lymphocytes % 5.5 % (10-50); Mean Corpuscular HGB Conc 33.4 g/dL (31.8-35.4); Mean Corpuscular Volume 92.9 fl (81-99); Mean Platelet Volume 6.9 fl (7.4-10.4); Monocytes # 0.2 K/mm3 (0.1-1.0); Monocytes % 1.4 % (1.7-9.3); Neutrophils # 13.2 K/mm3 (1.8-7.8); Neutrophils % 92.6 % (37.0-80.0); Platelet Count 304 K/mm3 (142-424); Red Blood Count 4.41 M/mm3 (4.20-5.40); Red Cell Distribution Width 13.3 % (11.5-17.5); White Blood Count 14.2 K/mm3 (4.8-10.8)
[2023-08-19 13:20] LABS: MANUAL DIFFERENTIAL MANUAL DIFFERENTIAL (MANUAL DIFF)
[2023-08-19 13:53] LABS: Lymphocytes % 6 % (10-50); Monocytes % 1 % (2-9); Neutrophils % 93 % (42-76); Platelet Estimate Normal; RBC Morphology Normal; Total Cells Counted 100
--- NOTE | 2023-08-19 16:27 | PC.NURSE ---
IV saline lock discontinued with catheter intact. 2x2 gauze and coban applied to site. Tolerated well.
--- NOTE | 2023-08-19 16:38 | P.DS_ITS ---
General Admission date:: 08/19/23 Discharge date: 08/19/23 HPI HPI HPI: Nighat Mi is a 27yo (SVDx2) presenting today for a TVH, salpingectomy, and cystoscopy with hydrodistension. Pt reports she is very anxious and nervous about this surgery, but also desires to get it over with as she is bleeding so heavy. Previous HPI: -C/o of constant dysuria. Previously had hydrodistension and stated significantly improved. Dr. Wen, urologist diagnosed with IC -Recently completed course of Abx for positive urine culture with greater than 100,000 CFU of Enterococcus faecalis. Fosfomycin sent to [facility] and patient states she completed the course on 06/24/2023. Patient states that she has had greater than 6 UTIs this year. -She also complains of dyspareunia and painful very heavy bleeding. Patient has pictures on her phone of very large clots. -She said tubal ligation for contraception -Reports that she has 1 day where she will have 7 bowel movements and then she will have another bowel movement for 3 days. Her bowels have been regular for several years now. -Declines ever receiving the HPV vaccine -Reports she is never had an abnormal Pap smear -Denies any STD history. Reports she is sexually active and has no concerns. In a safe monomagous relationship, feels safe in work and home life. endorses dyspareunia, and deep penetration with certain postions but not all the time. denies insertional pain. -Denies anxiety or depression concerns. -Reports daily tobacco use. Denies any alcohol or illicit drug use. -FHX: denies breast, ovarian, colon or uterine cancer. 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 BP problems G2- SAB WITH D&C G3: full term . BP problems Hospital Course Hospital Course Hospital Course: Nighat is a 27-year-old postop day 0 from a total vaginal hysterectomy and cystoscopy with hydrodistention. She is doing very well and requiring minimal narcotics for pain control. Reports her pain is very well-controlled. She is ambulating in the room when I went to see her this afternoon. She has voided spontaneously and without dysuria. She is tolerating p.o. without any nausea or vomiting. She is ambulating without any difficulty. Of note prior to the patient surgery she was very concerned because she was told that she had extre orquidea low cholesterol and that it was life-threatening. I have reviewed low- cholesterol guidelines on up-to-date and provided the patient on information with this prior to discharge. The patient was also concerned about a mild leukocytosis at 11.1 preoperatively. Postoperatively we did recheck this and it increased to 14. We discussed that this could be from the stress of surgery and that if she had development of any fever she should return to the emergency room. She received 2 antibiotics preoperatively both Ancef and metronidazole. Patient will follow-up with me at 2 weeks postoperative or sooner if problems arise. Discharge instructions were reviewed in detail with the patient. She voiced understanding and all questions and concerns were addressed. I did encourage the patient to stop smoking and discussed with her that I would be willing to help her in any way that I could with this goal Exam Data for Last 24 hours Vital signs and Labs for Last 24 Hours: Temp Pulse Resp BP Pulse Ox O2 Del Method 97.5 F L 74 18 116/65 97 Room Air 08/19/23 12:30 08/19/23 13:30 08/19/23 13:30 08/19/23 13:30 08/19/23 12:30 08/19/23 15:00 Laboratory Results - last 24 hr 08/19/23 13:05: WBC 14.2 H D, RBC 4.41, Hgb 13.7, Hct 40.9, MCV 92.9, MCH 31.0, MCHC 33.4, RDW 13.3, Plt Count 304, MPV 6.9 L, Neut % (Auto) 92.6 H, Lymph % (Auto) 5.5 L, Rich % (Auto) 1.4 L, Eos % (Auto) 0.4, Baso % (Auto) 0.1, Neut # (Auto) 13.2 H, Lymph # (Auto) 0.8, Rich # (Auto) 0.2, Eos # (Auto) 0.1, Baso # (Auto) 0.0, Total Counted 100, Neutrophils % (Manual) 93 H, Lymphocytes % (Manual) 6 L, Monocytes % (Manual) 1 L, Platelet Estimate Normal, RBC Morphology Normal I & O for Last 24 hours: Intake & Output 06/08/17/23 08/18/23 08/19/23 23:59 23:59 23:59 23:59 Intake Total 1600 / 1600 Output Total 350 / 350 Balance 1250 / 1250 Weight 160 lb Constitutional Constitutional: no acute distress *Routine HEENT Exam Head: Present normocephalic Eye: Present EOMI and PERRL ENT: Present mucous membranes moist *Routine Neck Exam Neck: Present supple; Absent lymphadenopathy *Routine Respiratory Exam Respiratory: Present CTA bilaterally *Routine Cardiovascular Exam Cardiovascular: Present RRR *Routine Abdominal Exam Abdominal: Present soft and normoactive bowel sounds; Absent tenderness *Routine Extremities Exam Extremities: Absent cyanosis, clubbing or edema *Routine Skin Exam Skin: Present warm; Absent rash *Routine Neurological Exam Neurological: Present alert and oriented X3 Results Data Completed and Pending Labs on day of discharge: Labs from last 24 hours 08/19/23 13:05 WBC 14.2 H D RBC 4.41 Hgb 13.7 Hct 40.9 MCV 92.9 MCH 31.0 MCHC 33.4 RDW 13.3 Plt Count 304 MPV 6.9 L Neut % (Auto) 92.6 H Lymph % (Auto) 5.5 L Rich % (Auto) 1.4 L Eos % (Auto) 0.4 Baso % (Auto) 0.1 Neut # (Auto) 13.2 H Lymph # (Auto) 0.8 Rich # (Auto) 0.2 Eos # (Auto) 0.1 Baso # (Auto) 0.0 Total Counted 100 Neutrophils % (Manual) 93 H Lymphocytes % (Manual) 6 L Monocytes % (Manual) 1 L Platelet Estimate Normal RBC Morphology Normal DS: Diagnosis Discharge Diagnosis (1) Dysmenorrhea: Status: Acute Code(s): N94.6 - Dysmenorrhea, unspecified (2) Menorrhagia: Status: Acute Code(s): N92.0 - Excessive and frequent menstruation with regular cycle (3) Pelvic pain: Status: Acute Code(s): R10.2 - Pelvic and perineal pain (4) Dyspareunia: Status: Acute Meds Home Medications and Allergies Home Medications Medication Instructions Recorded Confirmed Type hyoscyamine sulfate 0.125 mg tablet 0.125 mg PO DAILYP PRN bowel spasm 05/03/23 08/19/23 History omeprazole 20 mg capsule,delayed 20 mg PO DAILY #30 caps 08/18/23 08/19/23 Rx release acetaminophen 500 mg tablet 500 mg PO Q6H PRN fever #30 tabs 08/19/23 Rx ibuprofen 800 mg tablet 800 mg PO Q8HP PRN Mild Pain 08/19/23 Rx (Scale Score 1-4) #60 tabs oxycodone 5 mg tablet 5 mg PO Q8H PRN pain #15 tabs 08/19/23 Rx sennosides 8.6 mg tablet (Senna 8.6 mg PO BIDP PRN Constipation 08/19/23 Rx Lax) #60 tabs New Prescriptions to Start Prescriptions: ibuprofen Sonali Rich acetaminophen Sonali Rich oxycodone Sonali Rich sennosides [Senna Lax] Sonali Rich Allergies Allergy/AdvReac Type Severity Reaction Status Date / Time diphenhydramine AdvReac Vomiting Verified 08/19/23 07:13 prochlorperazine AdvReac Vomiting Verified 08/19/23 06:17 [From Compazine] Discharge Plan Disposition Patient Disposition: Home, Self-Care Condition: Good Follow up Plan Follow up with: Sonali Rich DO [Staff Physician] - 2 weeks Prescriptions/Medication Reconciliation: New acetaminophen 500 mg tablet 500 mg PO Q6H PRN (Reason: fever) Qty: 30 3RF sennosides [Senna Lax] 8.6 mg Tablet 8.6 mg PO BIDP PRN (Reason: Constipation) Qty: 60 2RF oxycodone 5 mg tablet 5 mg PO Q8H PRN (Reason: pain) Qty: 15 0RF Continued omeprazole 20 mg capsule,delayed release(DR/EC) 20 mg PO DAILY Qty: 30 2RF hyoscyamine sulfate 0.125 mg tablet 0.125 mg PO DAILYP PRN (Reason: bowel spasm) ibuprofen 800 mg Tablet 800 mg PO Q8HP PRN (Reason: Mild Pain (Scale Score 1-4)) Qty: 60 2RF Discontinued cefdinir 300 mg capsule 300 mg PO BID 10 Days Qty: 20 0RF Problem Reconciliation Problems Reviewed?: Yes Patient Discharge Instructions ACTIVITY: Continue current activity DIET: regular diet Additional Instructions: Hysterectomy Discharge You had a total vaginal hysterectomy, cystoscopy and hydrodistention. You previously had a bilateral salpingectomy and your tubes were noted to be surgically absent at the time of the surgery. This means that your uterus and cervix were removed today. The top of your vagina is closed with dissolvable sutures. You will follow-up in office for a postop visit at 1-2 weeks and at 6 weeks. At your 6-week postop appointment you will have a pelvic exam to ensure your cuff is healing well. I also placed a camera in your bladder and noted your ureters to be free-flowing with urine. We also distended your bladder completely for hydrodistention. No gross abnormalities were noted within your bladder. I have called several medications in for you and they are detailed below as well as discharge instructions. If you have any questions, please call the office. Activity: - No lifting more than 10 lbs for 6 weeks. - No driving while you are taking narcotic pain medication. - Keep your wound clean and dry, ok to wash with soap and water but pat thoroughly dry Medications: - Ibuprofen (a nonsteroidal anti-inflammatory) for pain. Please take the ibu profen scheduled for the first 2-3 days as this will help control your pain - Oxycodone (a narcotic pain medication) use the narcotic pain medication for breakthrough or severe pain. You will want to stop the narcotic pain medication first. Narcotic pain medication can be habit forming so please only use this medication if you need it. - Senna (a stool softener) use this medication for constipation as needed. Narcotics can increase your risk for constipation Please call the office or return to the ER if you have any of the followin. bleeding more than 1 pad an hour for 2 hours 2. pain that does not respond to your narcotic pain medication 3. dizziness or lightheadedness such that you lose consciousness Questions or concerns: It is my privilege to be your doctor. Please let me know if you have other questions or concerns. Sonali Rich DO [facility] [place], [place] [address] Patient Instructions: DI for Cystoscopy, DI for Vaginal Hysterectomy Providers Primary Care Provider: Alexandria Rivera Admerin Provider: Sonali Rich Attending Provider: Sonali Rich
--- NOTE | 2023-08-19 17:09 | PC.NURSE ---
Discharge instructions given. Verbalized understanding of discharge instructions.
--- NOTE | 2023-08-19 17:25 | PC.NURSE ---
Assisted out to private vehicle via wc by this nurse.
--- NOTE | 2023-08-20 14:26 | EXP.ANES.II ---
[facility] Anesthesia Record Part II Anesthesia Record Part II Discharge Time: 09:25 Destination: Second Floor PACU nurse assessment reviewed?: Yes Patient Condition:: Good Anesthesia Complications:: None Swallowing reflex intact?: Yes Airway Patency: Patent Cyanosis?: No Blood Pressure: 116/69 SaO2: 97 Respiratory Rate: 16 Pulse Rate: 97 Temperature: 98.1 F Mental Status: Alert & Oriented Pain level:: 4 Nausea and/or vomitting:: None Intake, IV Amount: 0 Hydration: Adequate
[2023-08-20 14:28] VITALS: BP 116/69; PULSE 97; RESP 16; TEMP 36.7; O2SAT 97
== END 2023-08-19 17:35 | disposition home or self-care (01) ==
LOC: OB 06:56
PROVIDERS: Admitting Provider Obstetrics & Gynecology; PCP Nurse Practitioner Family; Visit Provider Obstetrics & Gynecology
PROC: (CPT 58570; principal; 2023-08-19 07:30)
DX: N94.10 Unspecified dyspareunia (principal); N94.6 Dysmenorrhea, unspecified; R10.2 Pelvic and perineal pain
CPT/HCPCS: 58570; 52000; 36415; 85007; 85025; 96374; G0378; J0690; J1885; J2175; J2250; J2270; J2405; J3010; J7120

== ENCOUNTER 2023-09-13 06:38 | Outpatient (CLI) | payer BC, SELFPAY ==
[2023-09-13 07:34] LABS: Basophils # 0.1 K/mm3 (0-0.2); Eosinophils # 0.3 K/mm3 (0.0-0.4); Eosinophils % 3.9 % (0.1-12.0); Hematocrit 41.1 % (37.0-47.0); Hemoglobin 14.1 g/dL (12.2-16.2); Lymphocytes % 38.6 % (10-50); Mean Corpuscular HGB Conc 34.2 g/dL (31.8-35.4); Mean Corpuscular Hemoglobin 31.3 pg (27.0-31.2); Mean Corpuscular Volume 91.7 fl (81-99); Mean Platelet Volume 7.8 fl (7.4-10.4); Monocytes # 0.4 K/mm3 (0.1-1.0); Monocytes % 4.9 % (1.7-9.3); Neutrophils % 51.6 % (37.0-80.0); Platelet Count 333 K/mm3 (142-424); Red Blood Count 4.48 M/mm3 (4.20-5.40); Red Cell Distribution Width 13.5 % (11.5-17.5); White Blood Count 7.8 K/mm3 (4.8-10.8)
[2023-09-13 08:39] LABS: Chloride 105 mmol/L (98-107); Potassium 4.3 mmoL/L (3.5-5.1); Sodium 137 mmol/L (136-145)
[2023-09-13 08:42] LABS: Alanine Aminotransferase 38 U/L (12-78); Albumin Level 3.8 g/dl (3.5-5.0); Albumin/Globulin Ratio 1.4 (1.1-1.8); Alkaline Phosphatase 77 U/L (38-126); Anion Gap 9.3 mEq/L (5-15); Aspartate Amino Transferase 27 U/L (14-36); Bilirubin,Total 0.6 mg/dl (0.2-1.3); Blood Urea Nitrogen 14 mg/dl (7-17); Calcium 9.3 mg/dl (8.4-10.2); Carbon Dioxide 27 mmol/L (22.0-30.0); Estimated Glomerular Filt Rate 119 ml/min (>60); GFR (African American) 144 ML/MIN (>60); Globulin 2.7 g/dL (1.3-3.2); Glucose 85 mg/dl (74-100); Total Protein,Serum 6.5 g/dl (6.3-8.2)
[2023-09-13 08:43] LABS: Magnesium 1.7 mg/dl (1.6-2.3)
== END 2023-09-13 23:59 | disposition home or self-care (01) ==
LOC: LAB 06:39
PROVIDERS: Nurse Practitioner Family; PCP Nurse Practitioner Family; Visit Provider Obstetrics & Gynecology
DX: Z90.710 Acquired absence of both cervix and uterus (principal); R55 Syncope and collapse; R42 Dizziness and giddiness
CPT/HCPCS: 36415; 80053; 82533; 83735; 85025

== ENCOUNTER 2023-09-21 09:36 | Outpatient (CLI) | payer BC, SELFPAY | END 2023-09-21 23:59 | disposition home or self-care (01) | LOC: LAB.DROPOF 09:36 | PROVIDERS: PCP Nurse Practitioner Family; Visit Provider Nurse Practitioner Family | DX: E78.6 Lipoprotein deficiency (principal) | CPT/HCPCS: 82533 ==

== ENCOUNTER 2023-12-05 10:31 | Emergency (ER) | payer BC, SELFPAY ==
[2023-12-05 10:50] VITALS: BP 125/86; PULSE 84; RESP 20; TEMP 37; O2SAT 98; BMI 28.0
[2023-12-05 11:16] LABS: Microscopic, Urine URINE MICROSCOPIC (MICROSCOPIC)
--- NOTE | 2023-12-05 11:17 | EXP.UTC ---
Discharge Plan Disposition Patient Disposition: Home, Self-Care Condition: Good Prescriptions Prescriptions: New cefdinir 300 mg capsule 300 mg PO Q12H Qty: 20 0RF phenazopyridine [Pyridium] 200 mg tablet 200 mg PO Q8H 2 Days Qty: 6 0RF Referrals Follow up/Referrals: Alexandria Rivera APRN [Primary Care Provider] - See instructions Activity Restrictions/Add. Instructions Additional Instructions/Restrictions: *Increase fluids. Water not Soda or Tea *Start antibiotic immediately and be sure to take as ordered for the FULL length of time although you should start to see improvement over the next 48 hours *Pyridium as needed Remember this medication will turn your urine . This is normal but it will stain what ever it gets on *You should not use Pyridium for more than 48 hours. If so , follow up with your primary physician to review urine culture and ensure that antibiotic is adequate for infection *Be SURE to follow up anytime for new or worsening symptoms with your family doctor. AND in 48 hours for urine culture results with your family doctor, if you do not have a doctor then you may call back to the [facility] for urine culture results and further treatment. We do recommend that you choose and establish care with a Primary Care Physician. ?AND follow up with them ?in 10-14 days to repeat UA to ensure infection is resolved and blood no longer present *Be sure to let your PCP know that we sent urine cultures from the [facility] so they can follow up to ensure that you area the on the correct antibiotic Call your doctor office and make appointment for 48 hours (2 days from today) ?to follow up and get the results of your urine culture and further treatment Clinical Impressions Clinical Impression: UTI (urinary tract infection) Qualifiers: Urinary tract infection type: site unspecified Hematuria presence: without hematuria Qualified Code(s): N39.0 - Urinary tract infection, site not specified Instructions Patient Instructions: Urinary Tract Infection, DI for Urinary Tract Infection (UTI) Print Language Print Language: [place] Citizen Discharge ED [place] Sabrina [place] [facility] [place] General Stated complaint: uti Mode of Arrival: Ambulatory Source of Information: Patient Limitations: No Limitations Time Seen by Provider: 12/05/23 11:17 Description of Symptoms (Recalled from Triage Doc. by RN): PATIENT C/O LOWER BACK PAIN, POSSIBLE UTI HEENT Symptoms (Recalled from RN notes): No Resp Symptoms (Recalled from RN notes): No Skin Symptoms (Recalled from RN notes): No MS Symptoms (Recalled from RN notes): No Functional Status (Recalled from RN notes): WNL History of Present Illness Provider Complaint: Patient states that she has been having achy like pain in her left lower back area that does not move or radiate and having some pain with with urination States she gets UTI's and feels like it did when she had one Related Data Previous Rx's ?Medication ?Instructions ?Recorded cefdinir 300 mg capsule 300 mg PO Q12H #20 caps 12/05/23 phenazopyridine 200 mg tablet 200 mg PO Q8H pain 2 days #6 tabs 12/05/23 (Pyridium) Allergies Allergy/AdvReac Type Severity Reaction Status Date / Time diphenhydramine AdvReac Vomiting Verified 09/29/23 08:57 prochlorperazine AdvReac Vomiting Verified 09/29/23 08:57 [From Compazine] Worker's Comp Is this a Worker's Comp case?: No [facility] Disclaimer: The information contained in this section may have been updated after the patient was seen, as this information can be updated by other users. Medical History Pelvic pain Gastroenteritis Tingling of left upper extremity Left breast lump 6:00 location Pain of left breast Lumbar nerve root impingement Lumbar disc disease with radiculopathy Low back pain History of renal calculi Bilateral flank pain Lumbar back pain with radiculopathy affecting lower extremity Family history of Crohn's disease Paternal aunt Dilation of bladder Diarrhea chronic x 1 year DDD (degenerative disc disease), cervical 01/2022 Chest pain Migraine Tachycardia Abdominal pain Surgical History H/O laparoscopy H/O cystoscopy H/O tubal ligation Family History Father Diabetes Coronary artery disease Hypertension Heart attack, Onset Age: 39 Mother Thyroid disorder Unknown Cancer Aunt on Mom's side that had pancreatic cancer Social History Smoking Status: Current every day smoker tobacco type: cigarettes packs per day: 1 smoking status start date: 2010 quit status: not considering quitting second hand exposure: Yes alcohol intake: never substance use type: denies use current occupational status: employed Travel in the last 8 weeks: None adopted: No caregiver/support person: No foster care: No household members: spouse housing: house current occupation: [employer] current occupational exposures/hazards: Yes caffeine: Yes physical activity: walking do you feel safe at home: Yes victim of physical abuse: No victim of emotional abuse: No victim of sexual abuse: No ROS Obtained: Yes All systems reviewed & no additional complaints except as documented and Yes Systems reviewed as appropriate & no additional complaints except as documented Constitutional Constitutional: Reports system reviewed and no additional complaints, except as documented, Reports as per HPI, Denies body ache, Denies chills and Denies fever(s) ENT Ears, Nose, Mouth, and Throat: Reports system reviewed and no additional complaints, except as documented and Reports as per HPI Cardiovascular Cardiovascular: Reports system reviewed and no additional complaints, except as documented and Reports as per HPI Respiratory Respiratory: Reports system reviewed and no additional complaints, except as documented and Reports as per HPI Gastrointestinal Gastrointestingal: Reports system reviewed and no additional complaints, except as documented and as per HPI; Denies abdominal pain or cramping Genitourinary Female Genitourinary: Reports system reviewed and no additional complaints, except as documented, Reports as per HPI, Reports dysuria, Reports flank pain (left lower nonradiating), Reports urinary frequency and Reports urinary urgency Musculoskeletal Musculoskeletal: Reports system reviewed and no additional complaints, except as documented and Reports as per HPI Physical Exam General General appearance: alert and in no apparent distress ENT ENT exam: Present mucous membranes moist Chest Chest inspection: Present normal inspection and symmetric chest wall rise Respiratory Respiratory exam: Present normal lung sounds bilaterally; Absent respiratory distress or wheezes Cardiovascular Cardiovascular exam: Present regular rate, normal rhythm and normal heart sounds Abdominal Exam Abdominal exam: Present soft and normal bowel sounds; Absent distention or tenderness Neurological Exam Neurological exam: Present alert, oriented X3 and normal gait Medical Decision Making Medical Records Screening: Per USPSTF and CDC recommendations, given the prevalence of disease in our region, it is our hospital?s policy to screen for HIV and viral Hepatitis for all patients aged 18 and over and those with ongoing risk factors. Berry Inquiry Pt receiving controlled substance: No Berry was queried for this patient: No Vital Signs: 12/05/23 10:50 Temperature 98.6 F Temperature Source Oral Pulse Rate [Left Brachial] 84 Respiratory Rate 20 Blood Pressure [Left Arm] 125/86 Blood Pressure Mean [Left Arm] 99 Blood Pressure Source [Left Arm] Automatic Cuff Blood Pressure Position [Left Arm] Sitting 02 Sat by Pulse Oximetry 98 Oxygen Delivery Method Room Air Lab Data Lab results reviewed: Yes I reviewed the patient's lab results. Orders (Tests/Meds): ORDERS Category Date Time Status Urinalysis and Microscopic Stat Lab 12/05/23 10:50 Received Medical Decision Narrative: Patient states that she has had recurring UTI in the past and has taken bactrim and several other medications and had to return due to symptoms not improving Discussed with pharmacy and will prescribed Cefdnir and patient was given strict return precautions
[2023-12-05 11:56] LABS: Appearance,Urine CLEAR (Clear); Bilirubin,Urine Negative (Negative); Blood, Urine Negative (Negative); Color,Urine YELLOW (Yellow); Glucose,Urine (UA) Negative (Negative); Ketones,Urine Negative (Negative); Leukocyte Esterase,Urine TRACE (Negative); Nitrate,Urine POSITIVE (Negative); Protein,Urine Negative (Negative)
[2023-12-05 12:19] VITALS: BP 125/86; PULSE 84; RESP 20; TEMP 37; O2SAT 98
[2023-12-05 12:25] LABS: Bacteria,Urine Trace /lpf; RBC,Urine Occasional #/hpf (0-3)
== END 2023-12-05 12:23 | disposition home or self-care (01) ==
PROVIDERS: Emergency Provider Nurse Practitioner; PCP Nurse Practitioner Family
DX: N39.0 Urinary tract infection, site not specified (principal)
CPT/HCPCS: 81001; 99213; G0381

== ENCOUNTER 2023-12-07 08:03 | Outpatient (CLI) | payer BC, SELFPAY ==
[2023-12-07 08:40] LABS: Albumin Level 4.6 g/dl (3.5-5.0); Chloride 105 mmol/L (98-107)
[2023-12-07 08:41] LABS: Potassium 4.2 mmoL/L (3.5-5.1); Sodium 140 mmol/L (136-145)
[2023-12-07 08:42] LABS: Basophils # 0.1 K/mm3 (0-0.2); Basophils % 1.2 % (0.1-2.0); Eosinophils # 0.3 K/mm3 (0.0-0.4); Eosinophils % 3.4 % (0.1-12.0); Hematocrit 42.9 % (37.0-47.0); Hemoglobin 15.1 g/dL (12.2-16.2); Lymphocytes # 2.7 K/mm3 (0.7-4.5); Lymphocytes % 35.4 % (10-50); Mean Corpuscular HGB Conc 35.1 g/dL (31.8-35.4); Mean Corpuscular Hemoglobin 31.3 pg (27.0-31.2); Mean Corpuscular Volume 89.1 fl (81-99); Mean Platelet Volume 7.4 fl (7.4-10.4); Monocytes # 0.4 K/mm3 (0.1-1.0); Monocytes % 4.9 % (1.7-9.3); Neutrophils # 4.2 K/mm3 (1.8-7.8); Neutrophils % 55.1 % (37.0-80.0); Platelet Count 354 K/mm3 (142-424); Red Blood Count 4.81 M/mm3 (4.20-5.40); Red Cell Distribution Width 13.2 % (11.5-17.5); White Blood Count 7.6 K/mm3 (4.8-10.8)
[2023-12-07 08:43] LABS: Alanine Aminotransferase 29 U/L (12-78); Anion Gap 12.2 mEq/L (5-15); Aspartate Amino Transferase 24 U/L (14-36); Blood Urea Nitrogen 11 mg/dl (7-17); Carbon Dioxide 27 mmol/L (22.0-30.0); Estimated Glomerular Filt Rate 99 ml/min (>60); GFR (African American) 120 ML/MIN (>60)
[2023-12-07 08:44] LABS: Albumin/Globulin Ratio 1.6 (1.1-1.8); Alkaline Phosphatase 70 U/L (38-126); Bilirubin,Total 0.8 mg/dl (0.2-1.3); Calcium 9.9 mg/dl (8.4-10.2); Chol/HDL Ratio 2.7 (1-3.5); Cholesterol 109 mg/dl (140-200); Globulin 2.8 g/dL (1.3-3.2); Glucose 99 mg/dl (74-100); HDL Cholesterol 40 mg/dl (40-60); Total Protein,Serum 7.4 g/dl (6.3-8.2); Triglycerides 106 mg/dl (30-150); VLDL Cholesterol 21 mg/dL (0-40)
[2023-12-07 08:57] LABS: Direct LDL Cholesterol < 30.00 mg/dL (100-129)
[2023-12-07 09:15] LABS: Thyroid Stimulating Hormone 1.24 uIU/mL (0.465-4.68)
[2023-12-12 21:36] LABS: Vitamin B6 5.4 ug/L (3.4-65.2)
[2023-12-17 00:10] LABS: 1,25 Dihydroxy Vitamin D 19 pg/mL (.); 1,25-Dihydroxy, Vitamin D-2 <10 pg/mL (.); 1,25-Dihydroxy, Vitamin D-3 19 pg/mL (.)
== END 2023-12-07 23:59 | disposition home or self-care (01) ==
LOC: LAB 08:04
PROVIDERS: PCP Nurse Practitioner Family; Visit Provider Obstetrics & Gynecology
DX: R53.83 Other fatigue (principal)
CPT/HCPCS: 36415; 80050; 80053; 80061; 82652; 84207; 84443; 85025

== ENCOUNTER 2023-12-15 16:22 | Outpatient (CLI) | payer BC, SELFPAY ==
[2023-12-15 16:26] LABS: Microscopic, Urine URINE MICROSCOPIC (MICROSCOPIC)
[2023-12-15 16:52] LABS: Appearance,Urine CLEAR (Clear); Bilirubin,Urine Negative (Negative); Blood, Urine Negative (Negative); Color,Urine YELLOW (Yellow); Glucose,Urine (UA) Negative (Negative); Ketones,Urine Negative (Negative); Leukocyte Esterase,Urine Negative (Negative); Nitrate,Urine Negative (Negative); Protein,Urine Negative (Negative); Urobilinogen,Urine 0.2 EU/dl (0.2)
[2023-12-15 17:12] LABS: Erythrocyte Sedimentation Rate 14 mm/hr (0-20); Iron 100 ug/dL (37-170)
[2023-12-15 17:17] LABS: C-Reactive Protein 1.3 mg/L (0-4)
[2023-12-15 17:28] LABS: Hemoglobin A1C 5.2 % (4.0-6.0)
[2023-12-15 17:30] LABS: 25-OH Vitamin D, Total 36.8 ng/mL (30-100)
[2023-12-15 17:47] LABS: Bacteria,Urine 1+ /lpf; Squamous Epithelial Cell,Urine 20-50 #/hpf (0-5); WBC,Urine Occasional #/hpf (0-3)
[2023-12-15 17:48] LABS: Amorphous Sediment,Urine 2+ /lpf
[2023-12-15 18:02] LABS: Vitamin B12 353 pg/mL (239-931)
[2023-12-15 18:29] LABS: Total Iron Binding Capacity 349 ug/dL (265-497)
[2023-12-15 18:55] LABS: Ferritin 49.5 ng/ml (6.24-137)
[2023-12-17 08:21] LABS: Thyroid Peroxidase Antibodies 10 IU/mL (0-34)
[2024-01-18 16:03] LABS: Antinuclear Antibodies (ANA) Negative
== END 2023-12-15 23:59 | disposition home or self-care (01) ==
LOC: LAB 16:22
PROVIDERS: PCP Nurse Practitioner Family; Visit Provider Nurse Practitioner Family
DX: M25.50 Pain in unspecified joint (principal); R42 Dizziness and giddiness; R51.9 Headache, unspecified; R53.83 Other fatigue; R00.2 Palpitations; E53.8 Deficiency of other specified B group vitamins; N39.0 Urinary tract infection, site not specified; Z13.1 Encounter for screening for diabetes mellitus; E55.9 Vitamin D deficiency, unspecified
CPT/HCPCS: 36415; 81001; 82306; 82607; 82728; 83036; 83540; 83550; 85651; 86038; 86140; 86225; 86235; 86376; 87086

== ENCOUNTER 2024-01-25 15:50 | Outpatient (CLI) | payer BC, SELFPAY ==
--- NOTE | 2024-01-25 16:09 | US_ITS ---
FINAL REPORT CLINICAL HISTORY: UTI COMPARISON: 07/02/2023 FINDINGS: RENAL ULTRASOUND Ultrasound images of the kidneys were obtained. The right kidney measures 11.1 cm in length. There is mild caliectasis. An 8 mm stone is noted. There is no hydronephrosis. The left kidney measures 11.3 cm in length. It is normal echogenicity. There is no hydronephrosis. IMPRESSION: Mild caliectasis on the right and an 8 mm stone. Reviewed, Interpreted and Dictated by Watson Rapp III, MD Transcribed by Sherin House Authenticated and . [facility]
--- NOTE | 2024-01-25 16:25 | XR_ITS ---
PROCEDURE INFORMATION: Exam: XR Abdomen Exam date and time: 01/25/2024 4:28 PM Age: 28 years old Clinical indication: Other: Uti's TECHNIQUE: Imaging protocol: Radiologic exam of the abdomen. Views: Frontal supine view of the abdomen. 1 View. COMPARISON: CR XR KUB 07/02/2023 4:05 PM FINDINGS: Gastrointestinal tract: No abnormally dilated bowel loops or distinct pneumoperitoneum. Organs: No organomegaly, mass, or abnormal calcification. Bones/joints: No acute osseous or soft tissue abnormality. IMPRESSION: No acute abnormality.
== END 2024-01-25 23:59 | disposition home or self-care (01) ==
LOC: RAD 15:51
PROVIDERS: PCP Nurse Practitioner Family; Visit Provider Urology
DX: N39.0 Urinary tract infection, site not specified (principal)
CPT/HCPCS: 74018; 76770

== ENCOUNTER 2024-02-04 07:50 | Outpatient (CLI) | payer BC, SELFPAY ==
[2024-02-04 09:24] LABS: Chol/HDL Ratio 2.7 (1-3.5); Cholesterol 96 mg/dl (140-200); HDL Cholesterol 36 mg/dl (40-60); Triglycerides 118 mg/dl (30-150); VLDL Cholesterol 24 mg/dL (0-40)
[2024-02-04 09:52] LABS: Direct LDL Cholesterol < 30.00 mg/dL (100-129)
[2024-02-04 10:13] LABS: Vitamin B12 494 pg/mL (239-931)
[2024-02-05 08:13] LABS: Estradiol 27.4 pg/mL (.); Progesterone 0.2 ng/mL (.); Testosterone,Total 58 ng/dL (13-71)
[2024-02-09 15:20] LABS: Vitamin B6 15.2 ug/L (3.4-65.2)
== END 2024-02-04 23:59 | disposition home or self-care (01) ==
LOC: LAB 07:52
PROVIDERS: PCP Nurse Practitioner Family; Referring Provider Obstetrics & Gynecology; Visit Provider Nurse Practitioner Family
DX: F39 Unspecified mood [affective] disorder (principal); Z90.710 Acquired absence of both cervix and uterus; E78.6 Lipoprotein deficiency; M25.50 Pain in unspecified joint; R42 Dizziness and giddiness; R53.83 Other fatigue; E53.8 Deficiency of other specified B group vitamins; E55.9 Vitamin D deficiency, unspecified
CPT/HCPCS: 36415; 80061; 82306; 82607; 82670; 84144; 84207; 84403

== ENCOUNTER 2024-02-22 06:46 | Outpatient (CLI) | payer BC, SELFPAY ==
--- NOTE | 2024-02-22 06:49 | CT_ITS ---
FINAL REPORT TECHNIQUE: Thin section axial images were obtained from the lung bases to the pubic symphysis without IV contrast. Coronal reconstruction images were obtained from the axial data. Exam was performed using dose reduction technique. CLINICAL HISTORY: KIDNEY STONE COMPARISON: None. FINDINGS: There are no renal or ureteral stones. There is no hydronephrosis or perinephric stranding. Calcifications in the pelvis are likely phleboliths. The gallbladder is present. The remaining unenhanced solid abdominal organs are unremarkable. There is no evidence of small bowel obstruction. The appendix is normal. GI tract is without acute abnormality. The uterus is absent. A right adnexal lesion measures 5.6 cm on coronal images and 3.8 cm in axial dimension. This is likely of ovarian origin. There is no lymphadenopathy or ascites. No acute osseous abnormality is identified. A lucent lesion in the right iliac crest has a thin sclerotic margin and narrow zone of transition. Favor benign etiology. IMPRESSION: No renal or ureteral stones. No hydronephrosis. 5.6 cm right ovarian lesion. Recommend ultrasound for further evaluation. Small lucent lesion in the right iliac crest with a thin sclerotic margin and overall benign features. Consider follow-up if indicated. Authenticated and ERN
== END 2024-02-22 23:59 | disposition home or self-care (01) ==
LOC: RAD 06:46
PROVIDERS: PCP Nurse Practitioner Family; Visit Provider Urology
DX: N20.0 Calculus of kidney (principal)
CPT/HCPCS: 74176

== ENCOUNTER 2024-03-02 14:05 | Outpatient (CLI) | payer BC, SELFPAY ==
--- NOTE | 2024-03-02 14:05 | US_ITS ---
PROCEDURE: US TRANSVAGINAL CLINICAL INDICATION: right ovarian cyst COMPARISON: CT CT ABDOMEN PELVIS W CON from 07/23/2022 US US TRANSVAGINAL from 06/25/[address] ABDOMEN PELVIS WO CON from 02/22/2024 FINDINGS: Transvaginal sonographic images of the pelvis were obtained. UTERUS: Surgically absent The vaginal cuff appears intact. LEFT OVARY: 2.8 cmx1.7 cmx1.9cm with a volume of 4.7ml. There are multiple peripheral follicles giving the ovary a polycystic appearance. RIGHT OVARY: 4.1cmx 3.3cmx3.1cm with a volume of 22.2ml. There is a follicle in the right ovary measuring 3.2 cm x 2.1 cm x 3.2 cm. There is a 2nd follicle measuring 1.3 cm. Both ovaries are seen and appear normal. Doppler flow to both ovaries are seen. There is no fluid in the cul-de-sac. IMPRESSION: 1. The uterus is surgically absent. The vaginal cuff appears intact. 2. Both ovaries are seen and appear normal. There is a 3.2 cm follicle in the right ovary. No further follow-up is necessary for this. 3. The left ovary is seen and has a polycystic appearance with multiple small peripheral follicles. 4. No fluid in the cul-de-sac. Dictated by: Marc Mayfield MD 03/02/2024 15:16 Marc Mayfield MD in OV 03/02/2024 15:16
== END 2024-03-02 23:59 | disposition home or self-care (01) ==
LOC: RAD 14:05
PROVIDERS: PCP Nurse Practitioner Family; Visit Provider Obstetrics & Gynecology
DX: N83.201 Unspecified ovarian cyst, right side (principal)
CPT/HCPCS: 76830

== ENCOUNTER 2024-03-10 13:09 | Outpatient (CLI) | payer BC, SELFPAY ==
[2024-03-10 14:22] LABS: C-Reactive Protein 1.2 mg/L (0-4)
[2024-03-10 14:45] LABS: Adenovirus F 40/41, stool Not Detected (NotDetected); Astrovirus Not Detected (NotDetected); Campylobacter Not Detected (NotDetected); Clostridium Difficile A/B, PCR Not Detected (NotDetected); Cryptosporidium Not Detected (NotDetected); Cyclospora Cayetanesis Not Detected (NotDetected); Entamoeba histolytica Not Detected (NotDetected); Enteroaggregative E coli Not Detected (NotDetected); Enteropathogenic E coli Not Detected (NotDetected); Enterotoxigenic E coli Not Detected (NotDetected); Giardia lamblia Not Detected (NotDetected); Norovirus Not Detected (NotDetected); Plesimonas Shigalloides, PCR Not Detected (NotDetected); Rotavirus A Not Detected (NotDetected); Salmonella, PCR Not Detected (NotDetected); Sapovirus Not Detected (NotDetected); Shiga-like toxin E coli Not Detected (NotDetected); Shigella Enterovasive E coli Not Detected (NotDetected); Vibrio Cholerae Not Detected (NotDetected); Vibrio, PCR Not Detected (NotDetected); Yersinia Entercolitica, PCR Not Detected (NotDetected)
[2024-03-11 09:15] LABS: Homocyst(e)ine 6.6 umol/L (0.0-14.5)
[2024-03-14 02:08] LABS: Pancreatic Elastase, Fecal >800 (>200)
[2024-03-15 08:13] LABS: Calprotectin, Fecal 21 ug/g (0-120)
== END 2024-03-10 23:59 | disposition home or self-care (01) ==
LOC: LAB 13:11
PROVIDERS: Nurse Practitioner Family; PCP Nurse Practitioner Family; Visit Provider Nurse Practitioner Adult Health
DX: K58.2 Mixed irritable bowel syndrome (principal); Z82.49 Family history of ischemic heart disease and other diseases of the circulatory system
CPT/HCPCS: 36415; 82656; 83090; 83993; 86140; 87507

== ENCOUNTER 2024-03-10 14:39 | Outpatient (CLI) | payer BC, SELFPAY | END 2024-03-10 23:59 | disposition home or self-care (01) | LOC: LAB 14:40 | PROVIDERS: PCP Nurse Practitioner Family; Visit Provider Nurse Practitioner Family | DX: Z02.9 Encounter for administrative examinations, unspecified (principal) ==

== ENCOUNTER 2024-05-25 09:52 | Outpatient (CLI) | payer BC, SELFPAY ==
[2024-05-25 13:09] LABS: Coronavirus 19, PCR Not Detected (NotDetected); Human Rhinovirus Not Detected (NotDetected); Influenza A, PCR Not Detected (NotDetected); Influenza B, PCR Not Detected (NotDetected); Respiratory Syncytial Virus Not Detected (NotDetected)
== END 2024-05-25 23:59 | disposition home or self-care (01) ==
LOC: LAB.DROPOF 05-26 10:16
PROVIDERS: PCP Nurse Practitioner Family; Visit Provider Nurse Practitioner Family
DX: R53.83 Other fatigue (principal); R09.81 Nasal congestion; R05.1 Acute cough
CPT/HCPCS: 87070; 87631

== ENCOUNTER 2024-12-29 07:42 | Outpatient (CLI) | payer BC, SELFPAY ==
--- OUTSIDE RECORDS SUMMARY | 2024-12-29 07:45 | XMS_ITS | Data Portability ---
Author Organization [facility] [place] [facility] [place] [facility] Address [address] [place] [id number] Care Team Providers Care Gem Technician Name Role Phone CECILIA WOLF Primary Care Provider Assessment No assessment recorded. Plan of Treatment Reminders Order Date Submit Date Provider Last Modified By Organization Details Last Modified Time Details Appointments None recorded. Lab urinalysis , dipstick [address] [facility], [address], [place], [address], 4 10:47:54 urinalysis , dipstick [address] [facility], [address], [place], [address], 4 10:26:40 Referral None recorded. Procedures bladder scan (PROC) [address] [facility], [address], [place], [address], 4 10:26:40 Surgeries None recorded. Imaging CT, abdomen + pelvis, w/o contrast 2023 024 [facility] (X-Ray), [address] [place] [address] [address], [place], [address], 4 08:17:15 XR, kidney + ureter + bladder 2023 [facility] Scheduling Department -New Scheduling Process, [address], [place], [address], 4 16:54:02 US, renal 2023 [facility] Scheduling Department -New Scheduling Process, [address], [place], [address], 4 17:26:24 Medication Orders Hiprex 1 gram tablet 2023 024 [id number], [address], [place], [id number], 4 10:27:23 Patient TargetsNo targets recorded. Patient InstructionsNo instructions recorded. Reason for Referral None Reported. Results Created Date Observation Date Name Description Value Unit Range Abnormal Flag Note LastModifiedBy Organization Detail LastModifiedTime 01/07/2001/07/2024 bladd er scan (PROC ) Calculated Residual Urine: 8 Not Available [facility] [address], [place], [address], 01/07/2024 10:23:49 01/07/20 24 01/07/2024 urina lysis , dipst ick Leukocytes (reference range) negati ve Not Available [place] [address], [place], [address], 01/07/2024 10:04:37 01/07/20 24 01/07/2024 urina lysis , dipst ick Nitrite (reference range:) negati ve Not Available [facility] [address], [place], [address], 01/07/2024 10:04:37 01/07/20 24 01/07/2024 urina lysis , dipst ick Protein (reference range) negati ve Not Available [place] [address], [place], [address], 01/07/2024 10:04:37 01/07/20 24 01/07/2024 urina lysis , dipst ick pH (reference range 5-8.5) 5.0 Not Available [facility] [place] [address], [place], [address], 01/07/2024 10:04:37 01/07/20 24 01/07/2024 urina lysis , dipst ick Blood (reference range:) negati ve Not Available [place] [address] [address] [facility] [address], [place], [address], 01/07/2024 10:04:37 01/07/20 24 01/07/2024 urina lysis , dipst ick Specific Follett (reference range) 1.000 Not Available [facility] [place] [address] [address] [facility] [address], [place], [address], 01/07/2024 10:04:37 01/07/20 24 01/07/2024 urina lysis , dipst ick Ketone (reference range) negati ve Not Available [place] [address] [address] [facility] [address], [place], [address], 01/07/2024 10:04:37 01/07/20 24 01/07/2024 urina lysis , dipst ick Bilirubin (reference range) negati ve Not Available [place] [address] [address] [facility] [address], [place], [address], 01/07/2024 10:04:37 01/07/20 24 01/07/2024 urina lysis , dipst ick Glucose (reference range) negati ve Not Available [place] [address] [address] [facility] [address], [place], [address], 01/07/2024 10:04:37 01/07/20 24 01/07/2024 urina lysis , dipst ick Color (reference range: yellow-brown ) Yellow Not Available [facility] [place] [address] [address] [facility] [address], [place], [address], 01/07/2024 10:04:37 02/01/20 24 02/01/2024 urina lysis , dipst ick Leukocytes (reference range) negati ve Not Available [place] [address] [address] [facility] [address], [place], [address], 02/01/2024 10:25:25 02/01/20 24 02/01/2024 urina lysis , dipst ick Nitrite (reference range:) negati ve Not Available [place] [address] [address] [facility] [address], [place], [address], 02/01/2024 10:25:25 02/01/20 24 02/01/2024 urina lysis , dipst ick Urobilinogen (reference range) 0.2 Not Available [facility] [place] [address] [address] [facility] [address], [place], [address], 02/01/2024 10:25:25 02/01/20 24 02/01/2024 urina lysis , dipst ick Protein (reference range) negati ve Not Available [place] [address] [address] [facility] [address], [place], [address], 02/01/2024 10:25:25 02/01/20 24 02/01/2024 urina lysis , dipst ick pH (reference range 5-8.5) 6.0 Not Available [place] [address] [address] [facility] [address], [place], [address], 02/01/2024 10:25:25 02/01/20 24 02/01/2024 urina lysis , dipst ick Blood (reference range:) negati ve Not Available [place] [address] [address] [facility] [address], [place], [address], 02/01/2024 10:25:25 02/01/20 24 02/01/2024 urina lysis , dipst ick Specific Follett (reference range) 1.015 Not Available [facility] [place] [address] [address] [facility] [address], [place], [address], 02/01/2024 10:25:25 02/01/20 24 02/01/2024 urina lysis , dipst ick Ketone (reference range) negati ve Not Available [place] [address] [address] [facility] [address], [place], [address], 02/01/2024 10:25:25 02/01/20 24 02/01/2024 urina lysis , dipst ick Bilirubin (reference range) negati ve Not Available [place] [address] [address] [facility] [address], [place], [address], 02/01/2024 10:25:25 02/01/20 24 02/01/2024 urina lysis , dipst ick Glucose (reference range) negati ve Not Available [place] [address] [address] [facility] [address], [place], [address], 02/01/2024 10:25:25 02/01/20 24 02/01/2024 urina lysis , dipst ick Color (reference range: yellow-brown ) Yellow Not Available [place] [address] [address] [facility] [address], [place], [address], 02/01/2024 10:25:25 01/25/20 24 01/25/2024 XR, kidne y + urete r + bladd er No observ ation record ed. [facility] [address], [place], [address], 01/26/2024 17:20:44 01/25/20 24 01/25/2024 US, renal No observ ation record ed. [facility] [address], [place], [address], 01/26/2024 17:20:45 01/26/20 24 01/25/2024 US, renal No observ ation record ed. [facility] [address], [place], [address], 01/26/2024 17:20:46 02/22/20 24 02/22/2024 CT, abdom en + pelvi s, w/o contr ast No observ ation record ed. [facility] [address], [place], [address], 02/24/2024 10:02:59 Result Notes None recorded. Problems Name Problem SNOMED Code Status Onset Date Resolution Date Notes Provider Name and Address Organization Details Recorded Time Recurrent urinary tract infection 500700191 Active 024 ILSA BILLINGSLEY MD [address] , [place], [address] , [place] [facility] [place] [facility] [place] 10:25:09 Kidney stone 44483997 Active 024 ILSA BILLINGSLEY MD [address] , [place], [address] , [place] [facility] [place] [facility] [place] 10:47:07 Problem Notes None recorded. Procedures Surgical History Date Name Laterality Status Provider Name and Address Organization Details Recorded Time laparoscopy completed Ann Marie Alanarrez [place] [facility] [place] [facility] [place] 01/05/2024 08:24:53 cystoscopy completed Ann Marie Alanarrez [place] [facility] [place] 01/05/2024 08:25:30 ligation of fallopian tube completed Ann Marie Alanarrez [place] [facility] [place] [facility] [place] 01/05/2024 08:25:39 Imaging Results None recorded. Procedure Notes None recorded. Medical Equipment None Reported. Allergies No known drug allergies Medications Name Sig Start Date Stop Date Status Note LastModified by Organization Details LastModified Time CoQ10 10 mg capsule Take by oral route. active Not Available Not Available No t Available fosfomycin tromethamin e 3 gram oral packet MIX AND DRINK 1 PACKET BY MOUTH 1 TIME FOR 1 DOSE 01/06 completed Not Available Not Available Not Available ibuprofen 800 mg tablet TAKE ONE TABLET BY MOUTH EVERY 8 HOURS NEEDED FOR MILD PAIN SCALE SCORE 1-4 active Not Available Not Available No t Available fluconazole 150 mg tablet TAKE 1 TABLET BY MOUTH EVERY 3 DAYS FOR 2 DOSES REPEAT 2ND DOSE 72 HOURS AFTER FIRST DOSE IF SYMPTOMS PERSIST 01/06 completed Not Available Not Available Not Available tretinoin 0.025 % topical cream APPLY 1 APPLICATI ON TOPICALLY 3 TIMES A WEEK AND EASE INTO USE active Not Available Not Available No t Available senna 8.6 mg tablet TAKE ONE TABLET BY MOUTH TWICE DAILY NEEDED FOR CONSTIPAT ION 01/06 completed Not Available Not Available Not Available phenazopyri dine 200 mg tablet TAKE 1 TABLET BY MOUTH EVERY 8 HOURS FOR PAIN FOR 2 DAYS 01/06 completed Not Available Not Available Not Available spironolact one 100 mg tablet TAKE 1 TABLET BY MOUTH EVERY DAY active Not Available Not Available No t Available ciprofloxac in 250 mg tablet TAKE 1 TABLET BY MOUTH TWICE DAILY FOR 7 DAYS 01/06 completed Not Available Not Available Not Available sulfamethox azole 800 mg-trimetho prim 160 mg tablet TAKE 1 TABLET BY MOUTH TWICE DAILY FOR 7 DAYS active Not Available Not Available No t Available aspirin 81 mg tablet,rosa yed release Take 1 tablet every day by oral route. 01/06 completed Not Available Not Available Not Available acetaminoph en 500 mg tablet TAKE ONE TABLET BY MOUTH EVERY 6 HOURS NEEDED FOR FEVER 01/06 completed Not Available Not Available Not Available propranolol 10 mg tablet Take 2 tablets 3 times a day by oral route. 01/06 completed Not Available Not Available Not Available methenamine hippurate 1 gram tablet Take 1 tablet twice a day by oral route for 30 days. active Not Available Not Available No t Available amitriptyli ne 10 mg tablet Take 1 tablet every day by oral route. 01/06 completed Not Available Not Available Not Available Vitamin D2 1,250 mcg (50,000 unit) capsule Take by oral route. active Not Available Not Available No t Available propranolol 20 mg tablet TAKE 1 TABLET BY MOUTH TWICE DAILY 01/06 completed Not Available Not Available Not Available cefdinir 300 mg capsule TAKE 1 CAPSULE BY MOUTH EVERY 12 HOURS 01/06 completed Not Available Not Available Not Available oxycodone 5 mg tablet TAKE ONE TABLET BY MOUTH EVERY 8 HOURS NEEDED FOR PAIN 01/06 completed Not Available Not Available Not Available clindamycin 1 % lotion APPLY TOPICALLY TO THE AFFECTED AREA EVERY MORNING 01/06 completed Not Available Not Available Not Available nitrofurant oin monohydrate /macrocryst als 100 mg capsule TAKE 1 CAPSULE BY MOUTH EVERY 12 HOURS WITH MEAL/FOOD FOR 7 DAYS 01/06 completed Not Available Not Available Not Available Clindamycin Phosphate(T opical) 01/06 completed Not Available Not Available Not Available vitamin B12 1,000 mcg-folic acid [address] by sublingua l route. active Not Available Not Available No t Available Vitals Date Recorded Body weight Oxygen saturation Oxygen saturation in Arterial blood by Pulse oximetry Heart rate Systolic And Diastolic Provider Name and Address Organization Details Last Updated DateTime 4 91244.1 7 g 98 % 98 % 95 /min 111/77 mm[Hg] Ann Marie Vazquez [facility] & [place] 4 10:04:28 Date Recorded Body height Body mass index (BMI) Body weight Body temperature Oxygen saturation Oxygen saturation in Arterial blood by Pulse oximetry Heart rate Systolic And Diastolic Provider Name and Address Organization Details Last Updated DateTime 4 170.18 cm 27.3 kg/m2 52756.2 3 g 97.6 [degF] 98 % 98 % 98 /min 138/84 mm[Hg] Pauline Cheikh [facility] [place] 4 10:24:21 Social History Question Answer Notes LastModified by Organizat ion Details LastModified Time Tobacco Smoking Status Current Every Day Smoker Ann Marie Vazquez [facility], [facility] & [place] 01/05/2024 08:28:07 What Is Your Level Of Caffeine Consumption? Occasional [email or web address] Information not available 01/05/2024 Sex: Unknown Functional Status None recorded. Mental Status None recorded. Family History Relationship Description Onset Age of this Age Resolved Age Notes LastModified by Organization Details LastModified Time Father Diabetes mellitus [email or web address] Not available 2023 10:11:13 Father Coronary arterioscler osis [email or web address] Not available 2023 10:11:13 Father Hypertensive disorder nanette preston Not available 01/05/2024 08:26:27 Father Myocardial infarction nanette preston Not available 01/05/2024 08:26:38 Mother Disorder of thyroid gland nanette preston Not available 01/05/2024 08:26:57 Medical History No medical history recorded. Gynecological HistoryNo gynecological history recorded. Obstetrics History GPAL:G 0 P 0 0 0 0 Past Encounters Encounter ID Performer Location Encounter Start Date Encounter Closed Date Diagnosis/Indication Diagnosis SNOMED-CT Code Diagnosis ICD10 Code Diagnosis IMO Codes Diagnosis Note [id number] ILSA BILLINGSLEY MD [facility] 00 [address] [facility] [address] [place] [address] 01/07/2024 09:23:09 01/07/2024 10:25:50 Recurrent urinary tract infection 551608566 N39.0 PVR today is minimal. We discussed the possibilit y that any L5/S1 injury could play a role in bladder dysfunctio n. We will check renal ultrasound and KUB to rule out upper tract pathology. We will start Hiprex 1 g p.o. twice daily. She will follow up in 2 months'. She may need to consider cystoscopy depending on how she responds. [id number] ILSA BILLINGSLEY MD [facility] 00 [address] [facility] [address] [place] [address] 02/01/2024 10:08:49 02/01/2024 10:50:59 Kidney stone 07875744 N20.0 Imaging reports reviewed. Ultrasound suggest 8 mm right renal stone, however, KUB is unremarkab le. I explained the limitation and potential false positive of ultrasound . On the other hand, less dense stones may not be visible on KUB. In summary, our options would be surgery versus CT scan for definitive evaluation . I have personally recommende d CT in order to avoid potentiall y unnecessar y procedure. The patient verbalized her understand ing would like to proceed. We will send the order to [facility] at her request. We will follow up with televisit next week to review results. Recurrent urinary tract infection 715830461 N39.0 Patient is currently asymptomat ic. She will continue over-the-c ounter cranberry supplement ation. Health Concerns Section Related Observation LastModified by Organization Detai ls LastModified Time None Recorded Concern Status LastModified by Organization Details LastModified Time None Recorded Advance Directives Directive None Recorded Payers Insurance Date Sequence Insurance Name Policy Number Policy Moser Covered Member ID Moser Member ID Guarantor Name 01/07/2024 1 [facility] [id number] Emmanuellilian Stone Shmuel [id number] Nighat Mi 04/24/2024 1 [place] [id number] Robbi Stone Shmuel [id number] Nighat Shmuel Notes Date Note Type Note Provider Name and Address Organization Details Recorded Time 01/07/2024 text/html ROS as noted in the HPI 01/07/24 28-year-old female referred to my office for history of recurrent UTIs. Review of outside records showed that she saw Dr. Chang with Urology in June of 2023. At that time, the patient had reported a past history of cystoscopy with hydrodistention for possible interstitial cystitis. patient states she has had 9 infections this year alone. She was taken multiple antibiotics. She denies having any significant symptoms at the time of her infections. Other times, she will experience urgency with back pain and often times has nocturia. She describes having an L5/S1 injury approximately 1 year ago that preceded her current infections. She also states she had a hydrodistention performed by Dr. Wen 10 years ago. More recently, she underwent hysterectomy with cystoscopy in July by Dr. Sonali Rich. This procedure was done for abnormal bleeding. She states she was told that she had a large teachers bladder at the time of her cystoscopy. Finally, patient states she was diagnosed with kidney stones at age 17. She has not required any surgical intervention. 12/15/23 Urine c/s: no vortny25/06/24 Urine c/s: Klebsiella ampicillin-resistant0 06/12/23 Urine c/s: E coli barrera-sens05/13/23 Urine c/s: E coli barrera-sens ILSA BILLINGSLEY MD [address] [facility], [place], [address], [facility] & [place] 01/07/2024 10:27:11 02/01/2024 text/html ROS as noted in the HPI 02/01/24 28-year-old female returns early for re-evaluation. Renal ultrasound performed on 01/25/2024 at outside hospital showed mild right caliectasis but no hydronephrosis. There was shadowing suggesting an 8 mm stone in the right kidney. However, KUB performed on that same date showed no calcifications or any other abnormalities. Patient states that she did not start the Hiprex as prescribed in favor of taking an [id number] cranberry supplement. She has been asymptomatic since she was seen last month. 01/06/[age] -year-old female referred to my office for history of recurrent UTIs. Review of outside records showed that she saw Dr. Chang with Urology in June of 2023. At that time, the patient had reported a past history of cystoscopy with hydrodistention for possible interstitial cystitis.patient states she has had 9 infections this year alone. She was taken multiple antibiotics. She denies having any significant symptoms at the time of her infections. Other times, she will experience urgency with back pain and often times has nocturia.She describes having an L5/S1 injury approximately 1 year ago that preceded her current infections. She also states she had a hydrodistention performed by Dr. Wen 10 years ago. More recently, she underwent hysterectomy with cystoscopy in July by Dr. Sonali Rich. This procedure was done for abnormal bleeding. She states she was told that she had a large teachers bladder at the time of her cystoscopy.Finally, patient states she was diagnosed with kidney stones at age 17. She has not required any surgical intervention. 01/25/24 Renal US ([facility]): Mild right caliectasis, no hydronephrosis, 8 mm shadowing suggestive of right renal stone.01/25/24 KUB ([facility]): No acute ooipvdsepjm74/23/24 Urine c/s: no /06/24 Urine c/s: Klebsiella ampicillin-resistant0 06/12/23 Urine c/s: E coli barrera-sens05/13/23 Urine c/s: E coli barrera-sens ILSA BILLINGSLEY MD [address] [facility], [place], [address], [facility] - [place] [facility] [place] 02/01/2024 10:49:51 OBGyn Episode No OBEpisode recorded.
--- OUTSIDE RECORDS SUMMARY | 2024-12-29 07:45 | XMS_ITS | Patient Health Record ---
[facility] [address] [place] [id number] Care Team Providers Care Mixer And Scaler Name Role Phone Faheem Vargas Primary Care Provider [phone] Allergies No Known Allergies Reason For Referral No Information Immunizations Vaccine Route Administration Date Status Comme nts ppd ID Intradermal 07/22/2012 Administered Problems Problem Type SNOMED Code ICD Code Onset Dates Problem Status W/U Status Risk Notes Problem Dyspepsia (731550900) Dyspepsia NOS (536.8) Active confirmed Problem Kidney stone (72875867) Kidney stone (592.0) Active confirmed Problem Vitamin B12 deficiency (238221380) History of non anemic vitamin B12 deficiency (Z86.39) Active confirmed Problem Supraventricular tachycardia (4533079) SVT (supraventricul ar tachycardia) (I47.1) Active confirmed Problem Constipation (02718760) Constipation, unspecified constipation type (K59.00) Active confirmed Problem History of nutritional deficiency (58948292047195) History of vitamin D deficiency (Z86.39) Active confirmed Problem Skin sensation disturbance (37742659) Tingling sensation (R20.2) Active confirmed Problem Tobacco user (510055655) Cigarette nicotine dependence without complication (F17.210) Active confirmed Problem Sciatica (96936676) Left-sided l ow back pain with left-sided sciatica, unspecified chronicity (M54.42) Active confirmed Plan Of Treatment No Information Insurance Providers Payer Name Payer Address Payer Phone Subscriber Number Group Number Insured Name Patient Relationship to Insured Coverage Start Date Coverage End Date [facility] [address] [address] [place] [address] [id number] Nighat Mi Self - patient is the insured [facility] P O [facility] [address] [place] [address] [id number] Nighat Mi Self - patient is the insured Medical (General) History Medical History History ICD Code kidney stones Ovarian cyst SVT, seen on Holter monitor April 2015 Surgical History Surgery Date(Month/Year) laproscopic check for endometriosis x 26 Mar 2014 cystoscopy June 2014 Urethral dilitation June 2014 D&C Sep 2017 Hospitalization History Reason Date(Month/Year) [facility] ER-elevated pulse and BP 05/07 [facility] ER - Pleurisy 01/27/16
--- OUTSIDE RECORDS SUMMARY | 2024-12-29 07:46 | XMS_ITS | Data Portability ---
Author Organization [facility] Address [address] [place] [address] Care Team Providers Care Financial Examiner Name Role Phone CECILIA WOLF Primary Care Provider [phone] Assessment Encounter Date Assessment Date Assessment LastModified by Organization Details LastModified Time 10/21/2021 10/21/2021 Total visit length today 30-39 ,> 50% of which is face to face counselling and care coordination, including chart review, and medical record documentation time lshower Not available 10/21/2021 15:13:49 01/23/2022 01/23/2022 Total visit length today 30-39 ,> 50% of which is face to face counselling and care coordination, including chart review, and medical record documentation time lshower Not available 01/23/2022 14:31:56 09/30/2022 09/30/2022 Annual gynecological exam performed. Patient will come back in a year unless there are new symptoms. Not available 09/29/2022 18:12:49 Plan of Treatment Reminders Order Date Submit Date Provider Last Modified By Organization Details Last Modified Time Details Appointments None recorded. Lab culture, urine 2022 023 [facility], [address], [address], [place], [address], 3 03:08:00 urinalysis, dipstick 2022 023 [facility], [address], [address] [address], [place], [address], 3 03:07:59 cytology report, thin prep, smear or scraping, cervical or vaginal 2022 023 [facility], [address], [address], [place], [address], 3 08:21:08 CBC w/ auto diff 2022 023 [facility], [address], [place] [address], [place], [address], 3 03:07:58 culture, urine 2021 022 [facility], [address], [address] [address], [place], [address], 2 05:09:27 urinalysis, complete 2021 022 [facility], [address], [address] [address], [place], [address], 2 05:09:26 CBC w/ auto diff 2021 022 [facility]( Lab), [address] [place] [address] [place], [address], 2 22:53:38 CMP, serum or plasma 2021 022 [facility]( Lab), [address] [place] [address] [place], [address], 2 22:53:38 culture, urine 2021 022 [facility], [address], [address] [address], [place], [address], 2 15:08:41 urinalysis, complete 2021 022 [facility], [address], [address] [address], [place], [address], 08/08/202 2 15:08:40 urinalysis, dipstick 2021 [facility], [address] [place] [address] , [place], [address], 2 18:37:01 pap, IG + CT/NG/TV + HR HPV + reflex HPV (16+18+45) 2021 [facility], [address], [address], [place], [address], 2 03:07:37 Referral gastroenter ologist referral 2021 Rashaun Hurtado MD, [address], [address], [place], [address], 3 10:48:23 gynecologic surgery referral - dx laparoscopy , BIlateral salpingecto my, Hysteroscop y DC 2021 Not available 2 09:17:45 Procedures None recorded. Surgeries None recorded. Imaging US, transvagina l 2021 [facility], [address] [place] [address] , [place], [address], 2 22:53:38 Medication Orders amitriptyli ne 25 mg tablet 2022 023 [id number], [address], [id number], 3 16:36:45 Orilissa 150 mg tablet 2021 023 [facility], [address], [id number], 3 08:38:49 Orilissa 150 mg tablet [address] [facility] [address] [facility], [address] [place], [id number], 3 08:38:38 norethindro ne acetate 5 mg tablet [address] [facility]02, [address], [id number], 2 09:16:09 Macrobid 100 mg capsule [address] [facility], [address], [address], 3 08:38:22 Pyridium 200 mg tablet [address] [facility], [address], [address], 2 09:33:31 Patient TargetsNo targets recorded. Patient Instructions Encounter Date Encounter Id Patient Instructions Last Modified By Organization Details Last Modified Time 09/25/2021 [id number] medical record request* - please send operative notes from approx 2015: 1) PEDIATRIC SPEECH THERAPIST surgery possible laparosocpy dr Lamb 2) urologic possible cystoscopy and pathology notes thanks rufina Not available 09/26/2021 09:52:26 medical record request* - Requesting records from any office visits or testing in the last 3 years. Thank you rufina Not available 10/21/2021 08:00:47 medical record request* - Notes from gynecologic and obstetric care since 2014. Thank you rufina Not available 10/21/2021 08:00:55 60-minute visit today in reviewing all the above issues. Discussed that because her pain is likely multifactorial, the treatment for resolution of pain for her will probably require multimodal treatment. Discussed of all of the conditions endometriosis is the easiest to confirm a diagnosis definitively and has the most consistent treatment options with either hormonal manipulation (noncyclic contraception versus GnRH agonist/antagonist ), laparoscopic surgical excision or most definitive hysterectomy BSO , BUT that if she has other causes of pain as I suspect, even the most definitive procedure would likely not take care of all of her pain symptomatology. Reviewed I would not advise to do hysterectomy on her without seeing at least some portion of her pain improving with more conservative measures. Reassured that I do not think she has any type of ovarian cancer but that we will reassess with follow-up ultrasound. Reviewed gynecologic options of endometrial assessment in office with [facility] and then either trial of GnRH antagonist versus Depo-Provera, or proceeding on with conservative surgery, and she prefers the latter. We have proposed hysteroscopy D&C, laparoscopy with excision of endometriosis if noted, and completing bilateral salpingectomy for sterilization needs. I am advising against ablation and I am more comfortable with medical treatment for IC rather than hydrodistention. Patient states she would prefer to have this here rather than [place] and we will set up at her convenience around her school schedule. Need to assess for any ongoing pain from source after PEDIATRIC SPEECH THERAPIST treatment and appreciate any input from GI regarding treatment lshower Not available 09/26/2021 11:25:23 10/21/2021 [id number] The patient was counseled about the following procedures: Procedures planned: Diagnostic laparoscopy, laparoscopic bilateral salpingectomy, diagnostic hysteroscopy D&C. The indications and potential benefits of the proposed surgery were reviewed. The potential risks of any procedure including but not limited to: bleeding, infection, and anesthetic complications were reviewed; complications specific to PEDIATRIC SPEECH THERAPIST procedures including damage to surrounding organs(vagina, bladder, ureters, GI organs, nerves, or muscle), risks from surgical positioning, and DVT or PE risks-were reviewed. The alternatives to this procedure which include alternatives as below were discussed and patient prefers to proceed with the above surgical option. Alternative treatments offered: further medical treatment trials, expectant management, were discussed and patient prefers to proceed with the above surgical option. Issues Specific to her proposed procedure: Laparoscopic sterilization- For this case we also addressed possible failure rate of 3 in 1000. Diagnostic laparoscopy and/or hysteroscopy- For this case we also addresed that this is intended as a diagnostic procedure that may or may not provide relief of preop symptoms The proposed benefit of the surgical procedure is for resolution of pre-op complaints/concern s, however no guarantee can be made regarding surgical outcome(s). Realistic expectations have been discussed and patient desires to proceed. lshower Not available 10/21/2021 15:09:36 12/04/2021 [id number] Short-term appointment for PST and follow-up on Orilissa status. Advise continued care with GI including antispasmodics, stool testing, and trials of MiraLAX. lshower Not available 12/08/2021 12:09:07 01/23/2022 [id number] medical record request* - please send PEDIATRIC SPEECH THERAPIST notes for PST ( potassium sensitivity test). notes pertaining to interstitial cystitis from Dr Adonis almaraz Not available 03/02/2022 11:29:08 As she is doing well at this point we will continue with management of dysmenorrhea/adeno myosis with Orilissa, and management of suspected IBS with adding fiber and stool softener regimen with as needed MiraLAX, management sheet given. Next follow-up if stable will be September 2022. Reviewed Orilissa use at lower dose would be acceptable for up to 2 years. She is aware of potential option for hysterectomy if dysmenorrhea component worsens lshower Not available 01/23/2022 14:29:59 09/30/2022 [id number] medical record request* - please send office notes and lab/test results rufina Not available 01/27/2023 10:28:44 A healthy lifestyle: care instructions lshower Not available 10/01/2022 16:36:45 painful menstrua l cramps: care instructions lshower Not available 10/03/2022 18:09:30 Not interested i n restarting orilissa at this time. Considered surgical treatment though unable to take off work due to starting new job. Will consider IUD Mirena placement and will call if wants to proceed with insertion at follow up visit.. Trial of Elavil advised. Short-term follow-up to discuss Elavil use and possibly consider IUD placement lshower Not available 10/03/2022 18:07:35 Reason for Referral Gynecologic Surgery Referral for Chronic pelvic pain of female dx laparoscopy, BIlateral salpingectomy, Hysteroscopy DC Referring Physician: Enedina Toscano, OFFSET LITHOGRAPHIC PRESS OPERATOR, Encounter Date: 09/25/2021 Auto Technician Referral for Diarrhea diarrhea, rectal bleeding, Chronic pelvic pain Referring Physician: Enedina Toscano, OFFSET LITHOGRAPHIC PRESS OPERATOR, Encounter Date: 09/25/2021 Results Created Date Observation Date Name Description Value Unit Range Abnormal Flag Note LastModifiedBy Organization Detail LastModifiedTime 09/26/19 22 09/26/2021 URINA LYSIS , COMPL ETE specific gravity 1.018 1.005- 1.030 Not Available [facility] ([facility]) [address] [place], [address], 09/29/2021 15:08:40 09/26/19 22 09/26/2021 URINA LYSIS , COMPL ETE pH 5.5 5.0-7. 5 Not Available [facility] ([facility]) [address] [place], [address], 09/29/2021 15:08:40 09/26/19 22 09/26/2021 URINA LYSIS , COMPL ETE urine-color Yellow yellow Not Available [facility] ([facility]) [address] [place], [address], 09/29/2021 15:08:40 09/26/19 22 09/26/2021 URINA LYSIS , COMPL ETE appearance Clear clear Not Available [facility] ([facility]) [address] [place], [address], 09/29/2021 15:08:40 09/26/19 22 09/26/2021 URINA LYSIS , COMPL ETE WBC esterase 2+ negati ve abnormal Not Available [facility] ([facility]) [address] [place], [address], 09/29/2021 15:08:40 09/26/19 22 09/26/2021 URINA LYSIS , COMPL ETE protein Negati ve negati ve/tra ce Not Available [facility] ([facility]) [address] [place], [address], 09/29/2021 15:08:40 09/26/19 22 09/26/2021 URINA LYSIS , COMPL ETE glucose Negati ve negati ve Not Available [facility] ([facility]) [address] [place], [address], 09/29/2021 15:08:40 09/26/19 22 09/26/2021 URINA LYSIS , COMPL ETE ketones Negati ve negati ve Not Available [facility] ([facility]) [address] [place], [address], 09/29/2021 15:08:40 09/26/19 22 09/26/2021 URINA LYSIS , COMPL ETE occult blood Trace negati ve abnormal Not Available [facility] ([facility]) [address] [place], [address], 09/29/2021 15:08:40 09/26/19 22 09/26/2021 URINA LYSIS , COMPL ETE bilirubin Negati ve negati ve Not Available [facility] ([facility]) [address] [place], [address], 09/29/2021 15:08:40 09/26/19 22 09/26/2021 URINA LYSIS , COMPL ETE urobilinogen ,semi-qn 0.2 mg/dL 0.2-1. 0 Not Available [facility] ([facility]) [address] [place], [address], 09/29/2021 15:08:40 09/26/19 22 09/26/2021 URINA LYSIS , COMPL ETE nitrite, urine Positi ve negati ve abnormal Not Available [facility] ([facility]) [address] [place], [address], 09/29/2021 15:08:40 09/26/19 22 09/26/2021 URINA LYSIS , COMPL ETE microscopic examination See below: Micro scopi c was indic ated and was perfo rmed. Not Available [facility] ([facility]) [address] [facility], [place], [address], 09/29/2021 15:08:40 09/26/19 22 09/26/2021 URINA LYSIS , COMPL ETE WBC >30 /hpf 0 - 5 abnormal Not Available [facility] ([facility]) [address] [facility], [place], [address], 09/29/2021 15:08:40 09/26/19 22 09/26/2021 URINA LYSIS , COMPL ETE RBC 11-30 /hpf 0 - 2 abnormal Not Available [facility] ([facility]) [address] [facility], [place], [address], 09/29/2021 15:08:40 09/26/19 22 09/26/2021 URINA LYSIS , COMPL ETE epithelial cells (non renal) >10 /hpf 0 - 10 abnormal Not Available [facility] ([facility]) [address] [facility], [place], [address], 09/29/2021 15:08:40 09/26/19 22 09/26/2021 URINA LYSIS , COMPL ETE epithelial cells (renal) SENIOR AIR DIRECTOR Not Available [facility] ([facility]) [address] [facility], [place], [address], 09/29/2021 15:08:40 09/26/19 22 09/26/2021 URINA LYSIS , COMPL ETE casts None seen /lpf none seen Not Available [facility] ([facility]) [address] [facility], [place], [address], 09/29/2021 15:08:40 09/26/19 22 09/26/2021 URINA LYSIS , COMPL ETE cast type SENIOR AIR DIRECTOR Not Available [facility] ([facility]) [address] [facility], [place], [address], 09/29/2021 15:08:40 09/26/19 22 09/26/2021 URINA LYSIS , COMPL ETE crystals SENIOR AIR DIRECTOR Not Available [facility] ([facility]) [address] [facility], [place], [address], 09/29/2021 15:08:40 09/26/19 22 09/26/2021 URINA LYSIS , COMPL ETE crystal type SENIOR AIR DIRECTOR Not Available [facility] ([facility]) [address] [facility], [place], [address], 09/29/2021 15:08:40 09/26/19 22 09/26/2021 URINA LYSIS , COMPL ETE mucus threads SENIOR AIR DIRECTOR Not Available [facility] ([facility]) [address] [place], [address], 09/29/2021 15:08:40 09/26/19 22 09/26/2021 URINA LYSIS , COMPL ETE bacteria Many none seen/f ew abnormal Not Available [facility] ([facility]) [address] [place], [address], 09/29/2021 15:08:40 09/26/19 22 09/26/2021 URINA LYSIS , COMPL ETE yeast SENIOR AIR DIRECTOR Not Available [facility] ([facility]) [address] [place], [address], 09/29/2021 15:08:40 09/26/19 22 09/26/2021 URINA LYSIS , COMPL ETE trichomonas SENIOR AIR DIRECTOR Not Available [facility] ([facility]) [address] [place], [address], 09/29/2021 15:08:40 09/26/19 22 09/26/2021 URINA LYSIS , COMPL ETE comment SENIOR AIR DIRECTOR Not Available [facility] ([facility]) [address] [place], [address], 09/29/2021 15:08:40 09/26/19 22 09/26/2021 URINA LYSIS , COMPL ETE microscopic examination SENIOR AIR DIRECTOR Not Available [facility] [address] [place], [address], 09/29/2021 15:08:40 09/26/19 22 09/29/2021 URINE CULTU RE, ROUTI NE urine culture, routine Final report abnormal Not Available [facility] ([facility]) [address] [facility], [place], [address], 09/29/2021 15:08:41 09/26/19 22 09/29/2021 URINE CULTU RE, ROUTI NE result 1 Klebsi blanca pneumo niae abnormal Cefaz javi <=4 ug/mL Cefaz javi with an EMMA <=16 predi cts susce ptibi lity to the oral agent s cefac carmella, cefdi sruthi, cefpo doxim e, cefpr ozil, cefur oxime , cepha lexin , and lorac arbef when used for thera py of uncom plica danish urina ry tract infec tions due to E. coli, Klebs iella pneum oniae , and Prote us mirab ilis. Great er than 100,0 00 colon y formi ng units per mL Not Available [facility] ([facility]) [address] [facility], [place], [address], 09/29/2021 15:08:41 09/26/19 22 09/29/2021 URINE CULTU RE, ROUTI NE antimicrobia l susceptibili ty Commen t S = Susce ptibl e; I = Inter media te; R = Resis tant P = Posit johnathan; N = Negat johnathan MICS are expre ssed in micro grams per mL Antib iotic RSLT# 1 RSLT# 2 RSLT# 3 RSLT# 4 Amoxi cilli n/Cla vulan ic Acid S<=2 Ampic illin R>=32 Cefep bonifacio S<=0. 12 Ceftr iaxon e S<=0. 25 Cefur oxime S =2 Cipro floxa brianda S<=0. 25 Ertap enem S<=0. 12 Genta micin S<=1 Imipe nem S<=0. 25 Levof loxac in S<=0. 12 Merop enem S<=0. 25 Nitro furan toin I =64 Piper acill in/Ta zobac sagastume S<=4 Tetra cycli ne S<=1 Tobra mycin S<=1 Trime thopr im/Kevin lfa S<=20 Not Available [facility] ([facility]) [address] [place], [address], 09/29/2021 15:08:41 09/26/19 22 09/27/2021 IGP,C TNG,A PTIMA HPV,R FX16/ 18,45 chlamydia, nuc. acid amp Negati ve negati ve Not Available [facility] ([facility]) [address] [place], [address], 09/30/2021 03:07:37 09/26/19 22 09/27/2021 IGP,C TNG,A PTIMA HPV,R FX16/ 18,45 gonococcus, nuc. acid amp Negati ve negati ve Not Available [facility] ([facility]) [address] [place], [address], 09/30/2021 03:07:37 09/26/19 22 09/29/2021 IGP,C TNG,A PTIMA HPV,R FX16/ 18,45 diagnosis: Commen t NEGAT JOHNATHAN FOR INTRA EPITH ELIAL LESIO N OR MALNIDHI GUILHERME . Not Available [facility] ([facility]) [address] [place], [address], 09/30/2021 03:07:37 09/26/19 22 09/29/2021 IGP,C TNG,A PTIMA HPV,R FX16/ 18,45 specimen adequacy: Commen t Satis facto ry for evalu ation . No endoc ervic al compo nent is ident ified . Not Available [facility] ([facility]) [address] [place], [address], 09/30/2021 03:07:37 09/26/19 22 09/29/2021 IGP,C TNG,A PTIMA HPV,R FX16/ 18,45 clinician provided ICD10: Tereso musa R30.9 Z12.4 Z11.3 Not Available [facility] ([facility]) [address] [place], [address], 09/30/2021 03:07:37 09/26/19 22 09/29/2021 IGP,C TNG,A PTIMA HPV,R FX16/ 18,45 performed by: Tereso carias, Cytodimple musa (ASCP ) Not Available [facility] ([facility]) [address] [place], [address], 09/30/2021 03:07:37 09/26/19 22 09/29/2021 IGP,C TNG,A PTIMA HPV,R FX16/ 18,45 . . Not Available [facility] ([facility]) [address] [place], [address], 09/30/2021 03:07:37 09/26/19 22 09/29/2021 IGP,C TNG,A PTIMA HPV,R FX16/ 18,45 note: Tereso musa The Pap smear is a scree anabell test desig danial to aid in the detec tion of rosas ligna nt and malig nant condi tions of the uteri ne cervi x. It is not a diagn ostic proce dure and shoul d not be used as the sole means of detec ting cervi kendal cance r. Both false -posi tive and false -nega tive repor ts do occur . Not Available [facility] ([facility]) [address] [place], [address], 09/30/2021 03:07:37 09/26/19 22 09/29/2021 IGP,C TNG,A PTIMA HPV,R FX16/ 18,45 test methodology: Tereso musa This liqui d based ThinP rep(R ) pap test was scree danial with the use of an image guide marah damian. Not Available [facility] ([facility]) [address] [facility], [place], [address], 09/30/2021 03:07:37 09/26/19 22 09/29/2021 IGP,C TNG,A PTIMA HPV,R FX16/ 18,45 HPV aptima Negati ve negati ve This nucle ic acid ampli ficat ion test detec ts fourt een high- risk HPV types (16,1 8,31, 33,35 ,39,4 5,51, 52,56 ,58,5 9,66, 68) witho ut diffe renti ation . Not Available [facility] ([facility]) [address] [facility], [place], [address], 09/30/2021 03:07:37 09/26/19 22 09/25/2021 urina lysis , dipst ick Leukocytes Small Not Available [facility] [address] [place] [address] , [place], [address], 09/25/2021 17:44:42 09/26/19 22 09/25/2021 urina lysis , dipst ick Nitrite positi ve Not Available [facility] [address] [place] [address] , [place], [address], 09/25/2021 17:44:42 09/26/19 22 09/25/2021 urina lysis , dipst ick Urobilinogen .2 Not Available [facility] lexi Technical Inspector [address] [place] [address] , [place], [address], 09/25/2021 17:44:42 09/26/19 22 09/25/2021 urina lysis , dipst ick Protein Negati ve Not Available [facility] [address] [place] [address] , [place], [address], 09/25/2021 17:44:42 09/26/19 22 09/25/2021 urina lysis , dipst ick pH 6.5 Not Available [facility] [address] [place] [address] , [place], [address], 09/25/2021 17:44:42 09/26/19 22 09/25/2021 urina lysis , dipst ick Blood Negati ve Not Available [facility] [address] [place] [address] , [place], [address], 09/25/2021 17:44:42 09/26/19 22 09/25/2021 urina lysis , dipst ick Specific Volcano 1.015 Not Available [facility] Technical Inspector [address] [place] [address] , [place], [address], 09/25/2021 17:44:42 09/26/19 22 09/25/2021 urina lysis , dipst ick Ketone Negati ve Not Available [facility] [facility] [address] [place] [address] , [place], [address], 09/25/2021 17:44:42 09/26/19 22 09/25/2021 urina lysis , dipst ick Bilirubin Negati ve Not Available [facility] [address] [place] [address] , [place], [address], 09/25/2021 17:44:42 09/26/19 22 09/25/2021 urina lysis , dipst ick Glucose Negati ve Not Available [facility] [address] [place] [address] , [place], [address], 09/25/2021 17:44:42 10/22/19 22 10/21/2021 CBC W/AUT O DIFFE [place] note See Note Order ing Provi fabby: Enedina Angel (Show er) Not Available [address], [place], [address], 10/21/2021 11:50:04 10/22/19 22 10/21/2021 CBC W/AUT O DIFFE [place] white blood cell 10.2 10e3/ uL 4.5-13 .0 normal Not Available [facility] [address], [place], [address], 10/21/2021 11:50:04 10/22/19 22 10/21/2021 CBC W/AUT O DIFFE RENTI AL red blood cell 4.53 10e6/ uL 3.80-5 .10 normal Not Available [facility] [address], [place], [address], 10/21/2021 11:50:04 10/22/19 22 10/21/2021 CBC W/AUT O DIFFE RENTI AL hemoglobin 13.8 g/dL 11.5-1 5.3 normal Not Available [facility] [address], [place], [address], 10/21/2021 11:50:04 10/22/19 22 10/21/2021 CBC W/AUT O DIFFE RENTI AL hematocrit 41.1 % 34.0-4 6.0 normal Not Available [place] [address], [place], [address], 10/21/2021 11:50:04 10/22/19 22 10/21/2021 CBC W/AUT O DIFFE RENTI AL mean cell volume 91 fL 78.0-9 8.0 normal Not Available [place] [address], [place], [address], 10/21/2021 11:50:04 10/22/19 22 10/21/2021 CBC W/AUT O DIFFE RENTI AL mean cell HGB 30.5 pg 25.0-3 5.0 normal Not Available [place] [address] [place], [address], 10/21/2021 11:50:04 10/22/19 22 10/21/2021 CBC W/AUT O DIFFE RENTI AL mean cell HGB concentratio n 33.6 g/dL 31.0-3 6.0 normal Not Available [address] [place], [place], [address], 10/21/2021 11:50:04 10/22/19 22 10/21/2021 CBC W/AUT O DIFFE RENTI AL red cell distribution width 12.8 % 11.0-1 5.0 normal Not Available [address] [place], [place], [address], 10/21/2021 11:50:04 10/22/19 22 10/21/2021 CBC W/AUT O DIFFE RENTI AL platelet count 327 10e3/ uL 150-40 0 normal Not Available [address] [place], [place], [address], 10/21/2021 11:50:04 10/22/19 22 10/21/2021 CBC W/AUT O DIFFE RENTI AL immature granulocyte % 0 0-1 normal Not Available [address] [place], [place], [address], 10/21/2021 11:50:04 10/22/19 22 10/21/2021 CBC W/AUT O DIFFE RENTI AL neutrophil % 61 % 35-75 normal Not Available [address] [place], [place], [address], 10/21/2021 11:50:04 10/22/19 22 10/21/2021 CBC W/AUT O DIFFE RENTI AL lymphocyte % 32 % 10-50 normal Not Available [address] [address]li Londono, [place], [address], 10/21/2021 11:50:04 10/22/19 22 10/21/2021 CBC W/AUT O DIFFE RENTI AL monocyte % 3 % 0-15 normal Not Available [address] , [place], [address], 10/21/2021 11:50:04 10/22/19 22 10/21/2021 CBC W/AUT O DIFFE RENTI AL eosinophil % 2 % 0-5 normal Not Available [address] Marli Londono, [place], [address], 10/21/2021 11:50:04 10/22/19 22 10/21/2021 CBC W/AUT O DIFFE RENTI AL basophil % 1 % 0-5 normal Not Available [address] Marli Londono, [place], [address], 10/21/2021 11:50:04 10/22/19 22 10/21/2021 CBC W/AUT O DIFFE RENTI AL immature granulocyte # 0.03 x1000 /uL 0-0.05 normal Not Available [address] Marli Londono, [place], [address], 10/21/2021 11:50:04 10/22/19 22 10/21/2021 CBC W/AUT O DIFFE RENTI AL neutrophil # 6.22 x1000 /uL 1.50-8 .00 normal Not Available [address] Marli Londono, [place], [address], 10/21/2021 11:50:04 10/22/19 22 10/21/2021 CBC W/AUT O DIFFE RENTI AL lymphocyte # 3.24 x1000 /uL 1.20-5 .20 normal Not Available [address] [place], [address], 10/21/2021 11:50:04 10/22/19 22 10/21/2021 CBC W/AUT O DIFFE RENTI AL monocyte # 0.35 x1000 /uL 0.40-0 .90 low Not Available [address] Marli Londono, [place], [address], 10/21/2021 11:50:04 10/22/19 22 10/21/2021 CBC W/AUT O DIFFE RENTI AL eosinophil # 0.24 x1000 /uL 0.00-0 .50 normal Not Available [address] Marli Londono, [place], [address], 10/21/2021 11:50:04 10/22/19 22 10/21/2021 CBC W/AUT O DIFFE RENTI AL basophil # 0.07 x1000 /uL 0.00-0 .30 normal Not Available [address] Marli Londono, [place], [address], 10/21/2021 11:50:04 10/22/19 22 10/21/2021 CBC W/AUT O DIFFE RENTI AL NRBC automated 0.0 /100_ WBC Not Available [address] Mar[place] Londono, [place], [address], 10/21/2021 11:50:04 10/22/19 22 10/21/2021 CBC W/AUT O DIFFE RENTI AL performing lab see note - [place] [address] [facility] [address] [facility] [address] Not Available [address] Marli Londono, [place], [address], 10/21/2021 11:50:04 10/22/19 22 10/21/2021 COMP METAB OLIC PANEL note See Note Order ing Provi fabby: Enedina Angel (Show er) Not Available [address] Marli Londono, [place], [address], 10/21/2021 13:17:46 10/22/19 22 10/21/2021 COMP METAB OLIC PANEL sodium 140 mmol/ L 136-14 5 normal Not Available [place] [address], [place], [address], 10/21/2021 13:17:46 10/22/19 22 10/21/2021 COMP METAB OLIC PANEL potassium 4.8 mmol/ L 3.5-5. 1 normal Not Available [place] [address], [place], [address], 10/21/2021 13:17:46 10/22/19 22 10/21/2021 COMP METAB OLIC PANEL chloride 104 mmol/ L 98-107 normal Not Available [place] [address], [place], [address], 10/21/2021 13:17:46 10/22/19 22 10/21/2021 COMP METAB OLIC PANEL carbon dioxide 27 mmol/ L 24-33 normal Not Available [place] [address], [place], [address], 10/21/2021 13:17:46 10/22/19 22 10/21/2021 COMP METAB OLIC PANEL anion gap 13.8 mmol/ L 10-20 normal Not Available [place] [address], [place], [address], 10/21/2021 13:17:46 10/22/19 22 10/21/2021 COMP METAB OLIC PANEL glucose 72 mg/dL 70-99 normal Not Available [place] [address] [place], [address], 10/21/2021 13:17:46 10/22/19 22 10/21/2021 COMP METAB OLIC PANEL blood urea nitrogen 8 mg/dL 7-18 normal Not Available [place] [address], [place], [address], 10/21/2021 13:17:46 10/22/19 22 10/21/2021 COMP METAB OLIC PANEL creatinine 0.72 mg/dL 0.55-1 .02 normal Not Available [address] Marli Londono, [place], [address], 10/21/2021 13:17:46 10/22/19 22 10/21/2021 COMP METAB OLIC PANEL BUN/creatini ne ratio 11 12-20 low Not Available [address] Marli Londono, [place], [address], 10/21/2021 13:17:46 10/22/19 22 10/21/2021 COMP METAB OLIC PANEL total protein 7.6 g/dL 6.4-8. 2 normal Not Available [address] Marli Londono, [place], [address], 10/21/2021 13:17:46 10/22/19 22 10/21/2021 COMP METAB OLIC PANEL albumin 4.1 g/dL 3.4-5. 0 normal Not Available [address] Mar[address] Londono, [place], [address], 10/21/2021 13:17:46 10/22/19 22 10/21/2021 COMP METAB OLIC PANEL globulin 3.5 g/dL 1.5-4. 0 normal Not Available [place] [address], [place], [address], 10/21/2021 13:17:46 10/22/19 22 10/21/2021 COMP METAB OLIC PANEL albumin/glob ulin ratio 1.2 0.5-2. 0 normal Not Available [address] Mar[address] Londono, [place], [address], 10/21/2021 13:17:46 10/22/19 22 10/21/2021 COMP METAB OLIC PANEL calcium 9.3 mg/dL 8.5-10 .1 normal Not Available [address] , [place], [address], 10/21/2021 13:17:46 10/22/19 22 10/21/2021 COMP METAB OLIC PANEL osmolality serum calculated 275 mOsm/ kg 272-28 8 normal Not Available [address] , [place], [address], 10/21/2021 13:17:46 10/22/19 22 10/21/2021 COMP METAB OLIC PANEL glom filtr rate (estimated) > 60 mL/mi n >60 normal Not Available [address] , [place], [address], 10/21/2021 13:17:46 10/22/19 22 10/21/2021 COMP METAB OLIC PANEL GFR est (if -amer ican) > 60 mL/mi n >60 normal Not Available [address] , [place], [address], 10/21/2021 13:17:46 10/22/19 22 10/21/2021 COMP METAB OLIC PANEL bilirubin total 0.4 mg/dL 0.2-1. 0 normal Use of this assay is not recom rbian d for patie nts under going treat ment with Eltro mbopa g due to the poten tial for false ly eleva danish resul ts. Not Available [address] Londono, [place], [address], 10/21/2021 13:17:46 10/22/19 22 10/21/2021 COMP METAB OLIC PANEL SGOT/AST 19 U/L 15-37 normal Not Available [address] , [place], [address], 10/21/2021 13:17:46 10/22/19 22 10/21/2021 COMP METAB OLIC PANEL SGPT/ALT 38 U/L 14-59 normal Not Available [address] , [place], [address], 10/21/2021 13:17:46 10/22/19 22 10/21/2021 COMP METAB OLIC PANEL alkaline phosphatase total 90 U/L 46-116 normal Not Available [address] [place], [address], 10/21/2021 13:17:46 10/22/19 22 10/21/2021 COMP METAB OLIC PANEL performing lab see note - [facility] R [address] [facility] [address] Not Available [address] , [place], [address], 10/21/2021 13:17:46 10/22/19 22 10/22/2021 URINA LYSIS , COMPL ETE specific gravity 1.019 1.005- 1.030 Not Available [facility] ([facility]) [address] [place], [address], 10/23/2021 05:09:26 10/22/19 22 10/22/2021 URINA LYSIS , COMPL ETE pH 7.0 5.0-7. 5 Not Available [facility] ([facility]) [address] [place], [address], 10/23/2021 05:09:26 10/22/19 22 10/22/2021 URINA LYSIS , COMPL ETE urine-color Yellow yellow Not Available [facility] ([facility]) [address] [place], [address], 10/23/2021 05:09:26 10/22/19 22 10/22/2021 URINA LYSIS , COMPL ETE appearance Clear clear Not Available [facility] ([facility]) [address] [place], [address], 10/23/2021 05:09:26 10/22/19 22 10/22/2021 URINA LYSIS , COMPL ETE WBC esterase Negati ve negati ve Not Available [facility] ([facility]) [address] [place], [address], 10/23/2021 05:09:26 10/22/19 22 10/22/2021 URINA LYSIS , COMPL ETE protein Negati ve negati ve/tra ce Not Available [facility] ([facility]) [address] [place], [address], 10/23/2021 05:09:26 10/22/19 22 10/22/2021 URINA LYSIS , COMPL ETE glucose Negati ve negati ve Not Available [facility] ([facility]) [address] [place], [address], 10/23/2021 05:09:26 10/22/19 22 10/22/2021 URINA LYSIS , COMPL ETE ketones Negati ve negati ve Not Available [facility] ([facility]) [address] [place], [address], 10/23/2021 05:09:26 10/22/19 22 10/22/2021 URINA LYSIS , COMPL ETE occult blood Negati ve negati ve Not Available [facility] ([facility]) [address] [place], [address], 10/23/2021 05:09:26 10/22/19 22 10/22/2021 URINA LYSIS , COMPL ETE bilirubin Negati ve negati ve Not Available [facility] ([facility]) [address] [place], [address], 10/23/2021 05:09:26 10/22/19 22 10/22/2021 URINA LYSIS , COMPL ETE urobilinogen ,semi-qn 0.2 mg/dL 0.2-1. 0 Not Available [facility] ([facility]) [address] [facility] [place], [address], 10/23/2021 05:09:26 10/22/19 22 10/22/2021 URINA LYSIS , COMPL ETE nitrite, urine Negati ve negati ve Not Available [facility] ([facility]) [address] [facility], [place], [address], 10/23/2021 05:09:26 10/22/19 22 10/22/2021 URINA LYSIS , COMPL ETE microscopic examination Commen t Micro scopi c follo ws if indic ated. Not Available [facility] ([facility]) [address] [facility], [place], [address], 10/23/2021 05:09:26 10/22/19 22 10/22/2021 URINA LYSIS , COMPL ETE microscopic examination See below: Micro scopi c was indic ated and was perfo rmed. Not Available [facility] ([facility]) [address] [facility], [place], [address], 10/23/2021 05:09:26 10/22/19 22 10/22/2021 URINA LYSIS , COMPL ETE WBC None seen /hpf 0 - 5 Not Available [facility] ([facility]) [address] [facility], [place], [address], 10/23/2021 05:09:26 10/22/19 22 10/22/2021 URINA LYSIS , COMPL ETE RBC None seen /hpf 0 - 2 Not Available [facility] ([facility]) [address] [facility], [place], [address], 10/23/2021 05:09:26 10/22/19 22 10/22/2021 URINA LYSIS , COMPL ETE epithelial cells (non renal) 0-10 /hpf 0 - 10 Not Available [facility] ([facility]) [address] [facility], [place], [address], 10/23/2021 05:09:26 10/22/19 22 10/22/2021 URINA LYSIS , COMPL ETE epithelial cells (renal) SENIOR AIR DIRECTOR Not Available [facility] ([facility]) [address] [facility], [place], [address], 10/23/2021 05:09:26 10/22/19 22 10/22/2021 URINA LYSIS , COMPL ETE casts None seen /lpf none seen Not Available [facility] ([facility]) [address] [facility], [place], [address], 10/23/2021 05:09:26 10/22/19 22 10/22/2021 URINA LYSIS , COMPL ETE cast type SENIOR AIR DIRECTOR Not Available [facility] ([facility]) [address] [facility], [place], [address], 10/23/2021 05:09:26 10/22/19 22 10/22/2021 URINA LYSIS , COMPL ETE crystals SENIOR [employer] DIRECTOR Not Available [facility] ([facility]) [address] [facility], [place], [address], 10/23/2021 05:09:26 10/22/19 22 10/22/2021 URINA LYSIS , COMPL ETE crystal type SENIOR AIR DIRECTOR Not Available [facility] ([facility]) [address] [facility], [place], [address], 10/23/2021 05:09:26 10/22/19 22 10/22/2021 URINA LYSIS , COMPL ETE mucus threads SENIOR AIR DIRECTOR Not Available [facility] ([facility]) [address] [facility], [place], [address], 10/23/2021 05:09:26 10/22/19 22 10/22/2021 URINA LYSIS , COMPL ETE bacteria None seen none seen/f ew Not Available [facility] ([facility]) [address] [facility], [place], [address], 10/23/2021 05:09:26 10/22/19 22 10/22/2021 URINA LYSIS , COMPL ETE yeast SENIOR AIR DIRECTOR Not Available [facility] ([facility]) [address] [place], [address], 10/23/2021 05:09:26 10/22/19 22 10/22/2021 URINA LYSIS , COMPL ETE trichomonas SENIOR AIR DIRECTOR Not Available [facility] ([facility]) [address] [place], [address], 10/23/2021 05:09:26 10/22/19 22 10/22/2021 URINA LYSIS , COMPL ETE comment SENIOR AIR DIRECTOR Not Available [facility] ([facility]) [address] [place], [address], 10/23/2021 05:09:26 10/22/19 22 10/23/2021 URINE CULTU RE, SHELLYI NE urine culture, routine Final report Not Available [facility] ([facility]) [address] [place], [address], 10/23/2021 05:09:27 10/22/19 22 10/23/2021 URINE CULTU REPB NE result 1 Commen t Mixed uroge nital kristin 25,00 0-50, 000 colon y formi ng units per mL Not Available [facility] ([facility]) [address] [place], [address], 10/23/2021 05:09:27 10/29/19 22 10/28/2021 GLUCO SE POINT OF CARE note See Note Order ing Provi fabby: Enedina Angel (Show er) Not Available [address] [place], [address], 10/28/2021 07:46:37 10/29/19 22 10/28/2021 GLUCO SE POINT OF CARE glucose point of care 97 mg/dL 70-99 normal Not Available [address] [place], [address], 10/28/2021 07:46:37 10/29/19 22 10/28/2021 GLUCO SE POINT OF CARE performing lab see note [facility] - [facility] [place] [address] Not Available [address] , [place], [address], 10/28/2021 07:46:37 10/29/19 22 10/28/2021 HCG SERUM QUAL note See Note Order ing Provi fabby: Enedina Angel (Show er) Not Available [address] , [place], [address], 10/28/2021 08:54:04 10/29/19 22 10/28/2021 HCG SERUM QUAL HCG serum qual NEGATI VE negati ve Not Available [address] , [place], [address], 10/28/2021 08:54:04 10/29/19 22 10/28/2021 HCG SERUM QUAL performing lab see note ML - [facility] [address] [place] [address] [place] [address] Not Available [address] , [place], [address], 10/28/2021 08:54:04 10/01/19 23 10/01/2022 CBC WITH DIFFE RENTI AL/PL ATELE T WBC 11.5 x10e3 /uL 3.4-10 .8 above high normal Not Available [facility] ([facility]) [address] [facility], [place], [address], 10/02/2022 03:07:58 10/01/1910/01/2022 CBC WITH DIFFE RENTI AL/PL ATELE T RBC 4.89 x10e6 /uL 3.77-5 .28 Not Available [facility] ([facility]) [address] [facility], [place], [address], 10/02/2022 03:07:58 10/01/19 23 10/01/2022 CBC WITH DIFFE RENTI AL/PL ATELE T hemoglobin 14.8 g/dL 11.1-1 5.9 Not Available [facility] ([facility]) [address] [facility], [place], [address], 10/02/2022 03:07:58 10/01/1910/01/2022 CBC WITH DIFFE RENTI AL/PL ATELE T hematocrit 43.6 % 34.0-4 6.6 Not Available [facility] ([facility]) [address] [place], [address], 10/02/2022 03:07:58 10/01/1910/01/2022 CBC WITH DIFFE RENTI AL/PL ATELE T MCV 89 fL 79-97 Not Available [facility] ([facility]) [address] [facility], [place], [address], 10/02/2022 03:07:58 10/01/1910/01/2022 CBC WITH DIFFE RENTI AL/PL ATELE T MCH 30.3 pg 26.6-3 3.0 Not Available [facility] ([facility]) [address] [facility], [place], [address], 10/02/2022 03:07:58 10/01/1910/01/2022 CBC WITH DIFFE RENTI AL/PL ATELE T MCHC 33.9 g/dL 31.5-3 5.7 Not Available [facility] ([facility]) [address] [place], [address], 10/02/2022 03:07:58 10/01/19 23 10/01/2022 CBC WITH DIFFE RENTI AL/PL ATELE T RDW 13.1 % 11.7-1 5.4 Not Available [facility] ([facility]) [address] [place], [address], 10/02/2022 03:07:58 10/01/19 23 10/01/2022 CBC WITH DIFFE RENTI AL/PL ATELE T platelets 351 x10e3 /uL 150-45 0 Not Available [facility] ([facility]) [address] [facility], [place], [address], 10/02/2022 03:07:58 10/01/19 23 10/01/2022 CBC WITH DIFFE RENTI AL/PL ATELE T neutrophils 66 % not estab. Not Available [facility] ([facility]) [address] [place], [address], 10/02/2022 03:07:58 10/01/19 23 10/01/2022 CBC WITH DIFFE RENTI AL/PL ATELE T lymphs 26 % not estab. Not Available [facility] ([facility]) [address] [place], [address], 10/02/2022 03:07:58 10/01/19 23 10/01/2022 CBC WITH DIFFE RENTI AL/PL ATELE T monocytes 5 % not estab. Not Available [facility] ([facility]) [address] [place], [address], 10/02/2022 03:07:58 10/01/19 23 10/01/2022 CBC WITH DIFFE RENTI AL/PL ATELE T eos 2 % not estab. Not Available [facility] ([facility]) [address] [place], [address], 10/02/2022 03:07:58 10/01/19 23 10/01/2022 CBC WITH DIFFE RENTI AL/PL ATELE T basos 0 % not estab. Not Available [facility] ([facility]) [address] [facility], [place], [address], 10/02/2022 03:07:58 10/01/19 23 10/01/2022 CBC WITH DIFFE RENTI AL/PL ATELE T immature cells SENIOR AIR DIRECTOR Not Available [facility] ([facility]) [address] [facility], [place], [address], 10/02/2022 03:07:58 10/01/19 23 10/01/2022 CBC WITH DIFFE RENTI AL/PL ATELE T neutrophils (absolute) 7.5 x10e3 /uL 1.4-7. 0 above high normal Not Available [facility] ([facility]) [address] [facility], [place], [address], 10/02/2022 03:07:58 10/01/19 23 10/01/2022 CBC WITH DIFFE RENTI AL/PL ATELE T lymphs (absolute) 3.0 x10e3 /uL 0.7-3. 1 Not Available [facility] ([facility]) [address] [facility], [place], [address], 10/02/2022 03:07:58 10/01/19 23 10/01/2022 CBC WITH DIFFE RENTI AL/PL ATELE T monocytes(ab solute) 0.6 x10e3 /uL 0.1-0. 9 Not Available [facility] ([facility]) [address] [place], [address], 10/02/2022 03:07:58 10/01/19 23 10/01/2022 CBC WITH DIFFE RENTI AL/PL ATELE T eos (absolute) 0.2 x10e3 /uL 0.0-0. 4 Not Available [facility] ([facility]) [address] [place], [address], 10/02/2022 03:07:58 10/01/19 23 10/01/2022 CBC WITH DIFFE RENTI AL/PL ATELE T baso (absolute) 0.0 x10e3 /uL 0.0-0. 2 Not Available [facility] ([facility]) [address] [place], [address], 10/02/2022 03:07:58 10/01/19 23 10/01/2022 CBC WITH DIFFE RENTI AL/PL ATELE T immature granulocytes 1 % not estab. Not Available [facility] ([facility]) [address] [facility], [place], [address], 10/02/2022 03:07:58 10/01/19 23 10/01/2022 CBC WITH DIFFE RENTI AL/PL ATELE T immature grans (abs) 0.2 x10e3 /uL 0.0-0. 1 above high normal (An eleva danish perce ntage of Immat ure Granu locyt es has not been found to be clini afshan signi fican t as a sole clini kendal predi ctor of disea se. Does NOT inclu de bands or blast cells . Pregn liza assoc iated physi ologi kendal leuko cytos is may also show incre ased immat ure granu locyt es witho ut clini kendal signi fican ce.) Not Available [facility] ([facility]) [address] [facility], [place], [address], 10/02/2022 03:07:58 10/01/19 23 10/01/2022 CBC WITH DIFFE RENTI AL/PL ATELE T NRBC SENIOR AIR DIRECTOR Not Available [facility] ([facility]) [address] [facility], [place], [address], 10/02/2022 03:07:58 10/01/19 23 10/01/2022 CBC WITH DIFFE RENTI AL/PL ATELE T hematology comments: SENIOR AIR DIRECTOR Not Available [facility] ([facility]) [address] [facility], [place], [address], 10/02/2022 03:07:58 10/01/1910/01/2022 URINA LYSIS , ROUTI NE specific gravity >=1.03 0 1.005- 1.030 abnormal Not Available [facility] ([facility]) [address] [facility], [place], [address], 10/02/2022 03:07:59 10/01/19 23 10/01/2022 URINA LYSIS , ROUTI NE pH 6.5 5.0-7. 5 Not Available [facility] ([facility]) [address] [place], [address], 10/02/2022 03:07:59 10/01/19 23 10/01/2022 URINA LYSIS , ROUTI NE urine-color Yellow yellow Not Available [facility] ([facility]) [address] [facility], [place], [address], 10/02/2022 03:07:59 10/01/1910/01/2022 URINA LYSIS , ROUTI NE appearance Clear clear Not Available [facility] ([facility]) [address] [facility], [place], [address], 10/02/2022 03:07:59 10/01/19 23 10/01/2022 URINA LYSIS , ROUTI NE WBC esterase Negati ve negati ve Not Available [facility] ([facility]) [address] [facility], [place], [address], 10/02/2022 03:07:59 10/01/1910/01/2022 URINA LYSIS , ROUTI NE protein Trace negati ve/tra ce Not Available [facility] ([facility]) [address] [facility], [place], [address], 10/02/2022 03:07:59 10/01/19 23 10/01/2022 URINA LYSIS , ROUTI NE glucose Negati ve negati ve Not Available [facility] ([facility]) [address] [place], [address], 10/02/2022 03:07:59 10/01/19 23 10/01/2022 URINA LYSIS , ROUTI NE ketones Trace negati ve abnormal Not Available [facility] ([facility]) [address] [place], [address], 10/02/2022 03:07:59 10/01/19 23 10/01/2022 URINA LYSIS , ROUTI NE occult blood 2+ negati ve abnormal Not Available [facility] ([facility]) [address] [place], [address], 10/02/2022 03:07:59 10/01/19 23 10/01/2022 URINA LYSIS , ROUTI NE bilirubin Negati ve negati ve Not Available [facility] ([facility]) [address] [place], [address], 10/02/2022 03:07:59 10/01/19 23 10/01/2022 URINA LYSIS , ROUTI NE urobilinogen ,semi-qn 0.2 mg/dL 0.2-1. 0 Not Available [facility] ([facility]) [address] [place], [address], 10/02/2022 03:07:59 10/01/19 23 10/01/2022 URINA LYSIS , ROUTI NE nitrite, urine Negati ve negati ve Not Available [facility] ([facility]) [address] [place], [address], 10/02/2022 03:07:59 10/01/19 23 10/01/2022 URINA LYSIS , ROUTI NE microscopic examination See below: Micro scopi c was indic ated and was perfo rmed. Not Available [facility] ([facility]) [address] [place], [address], 10/02/2022 03:07:59 10/01/19 23 10/01/2022 URINA LYSIS , ROUTI NE WBC None seen /hpf 0 - 5 Not Available [facility] ([facility]) [address] [place], [address], 10/02/2022 03:07:59 10/01/19 23 10/01/2022 URINA LYSIS , ROUTI NE RBC 3-10 /hpf 0 - 2 abnormal Not Available [facility] ([facility]) [address] [facility], [place], [address], 10/02/2022 03:07:59 10/01/19 23 10/01/2022 URINA LYSIS , ROUTI NE epithelial cells (non renal) 0-10 /hpf 0 - 10 Not Available [facility] ([facility]) [address] [facility], [place], [address], 10/02/2022 03:07:59 10/01/19 23 10/01/2022 URINA LYSIS , ROUTI NE epithelial cells (renal) SENIOR AIR DIRECTOR Not Available [facility] ([facility]) [address] [facility], [place], [address], 10/02/2022 03:07:59 10/01/19 23 10/01/2022 URINA LYSIS , ROUTI NE casts None seen /lpf none seen Not Available [facility] ([facility]) [address] [facility], [place], [address], 10/02/2022 03:07:59 10/01/19 23 10/01/2022 URINA LYSIS , ROUTI NE cast type [employer]IOR [employer] DIRECT[employer] Not Available [facility] ([facility]) [address] [facility], [place], [address], 10/02/2022 03:07:59 10/01/19 23 10/01/2022 URINA LYSIS , ROUTI NE crystals [employer]IOR [employer] DIRECT[employer] Not Available [facility] ([facility]) [address] [place], [address], 10/02/2022 03:07:59 10/01/19 23 10/01/2022 URINA LYSIS , ROUTI NE crystal type [employer]IOR [employer] DIRECT[employer] Not Available [facility] ([facility]) [address] [place], [address], 10/02/2022 03:07:59 10/01/19 23 10/01/2022 URINA LYSIS , ROUTI NE mucus threads [employer]IOR [employer] DIRECT[employer] Not Available [facility] ([facility]) [address] [facility], [place], [address], 10/02/2022 03:07:59 10/01/19 23 10/01/2022 URINA LYSIS , ROUTI NE bacteria None seen none seen/f ew Not Available [facility] ([facility]) [address] [facility], [place], [address], 10/02/2022 03:07:59 10/01/19 23 10/01/2022 URINA LYSIS , ROUTI NE yeast [employer]IOR [employer] DIRECT[employer] Not Available [facility] ([facility]) [address] [facility], [place], [address], 10/02/2022 03:07:59 10/01/19 23 10/01/2022 URINA LYSIS , ROUTI NE trichomonas SENIOR AIR DIRECTOR Not Available [facility] ([facility]) [address] [place], [address], 10/02/2022 03:07:59 10/01/19 23 10/01/2022 URINA LYSIS , ROUTI NE comment SENIOR AIR DIRECTOR Not Available [facility] ([facility]) [address] [place], [address], 10/02/2022 03:07:59 10/01/19 23 10/01/2022 URINE CULTU RE, ROUTI NE urine culture, routine Final report Not Available [facility] ([facility]) [address] [place], [address], 10/02/2022 03:08:00 10/01/19 23 10/01/2022 URINE CULTU RE, ROUTI NE result 1 Commen t Cultu re shows less than 10,00 0 colon y formi ng units of bacte yari per jarett liter of urine . This colon y count is not gener ally consi dered to be clini afshan signi fican t. Not Available [facility] ([facility]) [address] [facility], [place], [address], 10/02/2022 03:08:00 10/01/19 23 10/02/2022 IGP,R FX APTIM A HPV ALL PTH diagnosis: Tereso t STEVEN MANN FOR INTRA EPITH ELIAL LESIO N OR DEONTE VANEGAS . Not Available [facility] ([facility]) [address] [place], [address], 10/02/2022 08:21:08 10/01/19 23 10/02/2022 IGP,R FX APTIM A HPV ALL PTH specimen adequacy: Commmiriam t Satis facto ry for evalu ation . Endoc ervic al and/o r squam ous metap lasti c cells (endo cervi kendal compo nent) are prese nt. Not Available [facility] ([facility]) [address] [place], [address], 10/02/2022 08:21:08 10/01/19 23 10/02/2022 IGP,R FX APTIM A HPV ALL PTH clinician provided ICD10: Tereso musa Z12.4 Z11.3 Not Available [facility] ([facility]) [address] [place], [address], 10/02/2022 08:21:08 10/01/19 23 10/02/2022 IGP,R FX APTIM A HPV ALL PTH performed by: Tereso Peña th, Cytot juan mg t (ASCP ) Not Available [facility] ([facility]) [address] [place], [address], 10/02/2022 08:21:08 10/01/19 23 10/02/2022 IGP,R FX APTIM A HPV ALL PTH . . Not Available [facility] ([facility]) [address] [place], [address], 10/02/2022 08:21:08 10/01/19 23 10/02/2022 IGP,R FX APTIM A HPV ALL PTH note: Commen t The Pap smear is a scree anabell test desig danial to aid in the detec tion of rosas ligna nt and malig nant condi tions of the uteri ne cervi x. It is not a diagn ostic proce dure and shoul d not be used as the sole means of detec ting cervi kendal cance r. Both false -posi tive and false -nega tive repor ts do occur . Not Available [facility] ([facility]) [address] [facility], [place], [address], 10/02/2022 08:21:08 10/01/19 23 10/02/2022 IGP,R FX APTIM A HPV ALL PTH test methodology: Commen t This liqui d based ThinP rep(R ) pap test was scree danial with the use of an image guide d systangel m. Not Available [facility] ([facility]) [address] [facility], [place], [address], 10/02/2022 08:21:08 10/01/19 23 10/02/2022 IGP,R FX APTIM A HPV ALL PTH . Commen t The HPV DNA refle x crite yari were not met with this speci men resul t there fore, no HPV testi ng was perfo rmed. Not Available [facility] ([facility]) [address] [facility], [place], [address], 10/02/2022 08:21:08 09/26/19 22 09/05/2021 US, trans vagin al No observ ation record ed. Not Available 2021 09:56:21 10/17/19 22 10/21/2021 US, trans vagin al No observ ation record ed. yohan [place] [employer] [address] [facility] [address] , [place], [address], 10/21/2021 23:05:23 10/21/19 22 03/29/2020 US, trans vagin al No observ ation record ed. yohan Not Available 2021 23:03:15 10/23/19 22 10/21/2021 US, trans vagin al No observ ation record ed. BARCODE [place] [employer] [address] [facility] [address] , [place], [address], 10/22/2021 08:08:37 Result Notes None recorded. Problems Name Problem SNOMED Code Status Onset Date Resolution Date Notes Provider Name and Address Organization Details Recorded Time Chronic interstitial cystitis 000420980 Active Tiffany Khadijah null, [place] - [facility] 15:58:15 Endometriosi s (clinical) 755074222 Active Tiffany Khadijah [place], [place] - [facility] 15:59:57 Past history of gestational hypertension 251957918 Active Tiffany Khadijah null, [place] - [facility] 2 16:05:18 Uterine adenomyosis 676802144 Active 2021 Enedina Toscano MD [address], [place], [address], [place] - [facility] 2 14:31:24 History of female sterilizatio n 052173149 Active 2021 Enedina Toscano MD [address], [place], [address], [place] - [facility] 2 14:31:32 Problem Notes None recorded. Procedures Surgical History Date Name Laterality Status Provider Name and Address Organization Details Recorded Time 023 Date of Last Pap Smear completed Tiffany Khadijah [place] - [facility] 10/05/2022 11:53:13 022 Diagnostic Laparoscopy completed Tiffany Khadijah [place] - [facility] 12/04/2021 11:17:12 022 Tubal Ligation completed Tiffany Khadijah [place] [facility] 12/04/2021 11:18:17 022 Hysteroscopy completed Tiffany Khadijah [place] - [facility] 12/04/2021 11:17:18 018 Dilation and Curettage, suction completed Tiffany Khadijah [place] - [facility] 10/21/2021 07:58:34 015 Cystourethroscopy completed Tiffany Lucio [place] - [facility] 09/26/2021 09:50:17 015 diagnostic laparoscopy completed Tiffany Lucio [place] - [facility] 09/26/2021 09:49:21 Imaging Results None recorded. Procedure Notes None recorded. Medical Equipment None Reported. Allergies No known drug allergies Medications Name Sig Start Date Stop Date Status Note LastModified by Organization Details LastModified Time azithromy brianda 250 mg tablet TAKE 2 TABLETS BY MOUTH ON DAY 1, AND THEN TAKE 1 TABLET BY MOUTH ONCE A DAY ON DAY 2 THROUGH DAY 5 active Not Available Not Available No t Available ibuprofen 800 mg tablet TAKE 1 TABLET BY MOUTH THREE TIMES DAILY NEEDED FOR MODERATE PAIN active Not Available Not Available No t Available benzonata te 200 mg capsule TAKE 1 CAPSULE BY MOUTH THREE TIMES DAILY NEEDED FOR COUGH active Not Available Not Available No t Available phenazopy ridine 200 mg tablet Take 1 tablet 3 times a day by oral route for 5 days. 10/21 completed Not Available Not Available Not Available prednison e 20 mg tablet TAKE 1 TABLET BY MOUTH TWICE DAILY active Not Available Not Available No t Available spironola ctone 100 mg tablet TAKE 1 TABLET BY MOUTH EVERY DAY 09/30 completed Not Available Not Available Not Available sulfameth oxazole 800 mg-trimet hoprim 160 mg tablet TAKE 1 TABLET BY MOUTH EVERY 12 HOURS FOR 7 DAYS 10/21 completed Not Available Not Available Not Available tramadol 50 mg tablet TAKE 1 TABLET BY MOUTH TWICE DAILY NEEDED FOR PAIN 09/30 completed Not Available Not Available Not Available ketorolac 10 mg tablet TAKE 1 TABLET BY MOUTH EVERY 6 HOURS FOR 5 DAYS NEEDED FOR PAIN 09/30 completed Not Available Not Available Not Available oxycodone -acetamin ophen 5 mg-325 mg tablet TAKE 1 TABLET BY MOUTH EVERY 6 HOURS NEEDED FOR PAIN 01/23 completed Not Available Not Available Not Available amitripty line 25 mg tablet TAKE 1 TABLET BY MOUTH EVERY DAY AT BEDTIME active Not Available Not Available No t Available hyoscyami ne sulfate 0.125 mg tablet TAKE 1 TABLET BY MOUTH ONCE DAILY NEEDED FOR ABDOMINA L PAIN active Not Available Not Available No t Available norethind aliyah acetate 5 mg tablet Take 1 tablet every day by oral route. 01/23 completed Not Available Not Available Not Available methylpre dnisolone 4 mg tablets in a dose pack TAKE 1 TABLET BY MOUTH DAILY DIRECTED 09/30 completed Not Available Not Available Not Available albuterol sulfate HFA 90 mcg/actua tion aerosol inhaler INHALE 2 PUFFS BY MOUTH EVERY 6 HOURS NEEDED FOR SHORTNES S OF BREATH OR WHEEZING active Not Available Not Available No t Available metaxalon e 800 mg tablet TAKE 1 TABLET BY MOUTH THREE TIMES DAILY NEEDED FOR MUSCLE PAIN 09/30 completed Not Available Not Available Not Available cyclobenz aprine 5 mg tablet 09/30 completed Not Available Not Available Not Available nitrofura ntoin monohydra te/macroc rystals 100 mg capsule TAKE 1 CAPSULE BY MOUTH EVERY 12 HOURS WITH MEAL/MARIA C D FOR 10 DAYS 09/30 completed Not Available Not Available Not Available Miralax 09/30 completed Not Available Not Available Not Available Orilissa 150 mg tablet TAKE 1 TABLET BY MOUTH EVERY DAY 09/30 completed stoppped Feb 2022 due to eye issues Not Available Not Available Not Available BinaxNOW COVID-19 Ag Self Test kit TEST DIRECTED TODAY 10/21 completed Not Available Not Available Not Available Vitals Date Recorded Body weight Body mass index (BMI) Body height Systolic And Diastolic Provider Name and Address Organization Details Last Updated DateTime 09/25/2021 72696.15 g 27.3 kg/m2 165.1 cm 118/72 mm[Hg] Tiffany Lucio [place] - [facility] 09/25/2021 15:57:00 Date Recorded Body height Body mass index (BMI) Body weight Heart rate Oxygen saturation Oxygen saturation in Arterial blood by Pulse oximetry Systolic And Diastolic Provider Name and Address Organization Details Last Updated DateTime 3 165.1 cm 28.3 kg/m2 38841.7 g 78 /min 98 % 98 % 116/72 mm[Hg] Matt Lucio [place] - [facility] 3 08:36:36 Date Recorded Body height Provider Name an d Address Organization Details Last Updated DateTime 10/21/2021 165.1 cm Tiffany Lucio [place] - [facility] 0 10/21/2021 09:33:12 Date Recorded Body height Body mass index (BMI) Body weight Pain severity - 0-10 verbal numeric rating [Score] - Reported Systolic And Diastolic Provider Name and Address Organization Details Last Updated DateTime 12/04/2021 165.1 cm 28 kg/m2 17367.52 g 0 120/80 mm[Hg] Tess Monahan [place] - [facility] 15:07:41 Date Recorded Body height Body mass index (BMI) Body weight Systolic And Diastolic Provider Name and Address Organization Details Last Updated DateTime 01/23/2022 165.1 cm 27.1 kg/m2 21954.56 g 118/72 mm[Hg] Tiffany Lucio [place] - [facility] 01/23/2022 09:15:37 Social History Question Answer Notes LastModified by Organizat ion Details LastModified Time Tobacco Smoking Status Current Every Day Smoker Tiffany Lucio [facility], [place] - [facility] 09/25/2021 16:03:30 Do You Have An Advance Directive? No [email or web address] Information not available 12/04/2021 Are You Blind Or Do You Have Difficulty Seeing? No Information not available 09/30/2022 Is Blood Transfusion Acceptable In An Emergency? Yes [email or web address] Information not available 12/04/2021 What Is Your Level Of Caffeine Consumption? Heavy Information not available 09/25/2021 How Much Tobacco Do You Chew? None Information not available 09/30/2022 In The 14 Days Before Symptom Onset, Have You Had Close Contact With A Laboratory-confir med COVID-19 While That Case Was Ill? No Information not available 09/30/2022 In The 14 Days Before Symptom Onset, Have You Had Close Contact With A Person Who Is Under Investigation For COVID-19 While That Person Was Ill? No Information not available 09/30/2022 Have You Been To An Area Known To Be High Risk For COVID-19? No Information not available 09/30/2022 Are You Deaf Or Do You Have Serious Difficulty Hearing? No Information not available 09/25/2021 What Type Of Diet Are You Following? REGULAR Information not available 09/25/2021 Have You Processed Blood Or Body Fluids From An Ebola Virus Disease Patient Without Appropriate PPE? No Information not available 09/30/2022 Do You Reside In Or Have You Traveled To An Area Where Ebola Virus Transmission Is Active? No Information not available 09/30/2022 What Is The Highest Grade Or Level Of School You Have Completed Or The Highest Degree You Have Received? [id number] Information not available 09/30/2022 Have There Been Any Changes To Your Family Or Social Situation? No Information no t available 09/30/2022 What Is The Fluoride Status Of Your Home? Fluoridated Information not available 09/30/2022 Have You Recently Or Are You Planning To Travel To An Area With Zika Virus? No Information not available 09/30/2022 Do You Have A Medical Power Of Rubble Placer? No Information not available 09/30/2022 What Was The Date Of Your Most Recent Tobacco Screening? 09/30/2022 Information not available 09/30/2022 How Many Children Do You Have? 3 Information not available 09/30/2022 What Is Your Current Pack Years? [email or web address] Information not available 09/30/2022 Do You Use Protection During Sex? Always Information not available 09/30/2022 Do You Use Protection Against STDs? No Information not available 12/04/2021 What Is Your Relationship Status? Information not available 09/25/2021 Do You Use Your Seat Belt Or Car Seat Routinely? Yes Information not available 09/30/2022 Are You Sexually Active? Yes [email or web address] Information not available 12/04/2021 Do You Have Smoke And Carbon Monoxide Detectors In Your Home? Yes [email or web address] Information not available 12/04/2021 At What Age Did You Start Smoking Tobacco? 17 Information not available 09/25/2021 Are You Passively Exposed To Smoke? Yes Information no t available 09/30/2022 How Much Tobacco Do You Smoke? 1 PPD Information not available 09/25/2021 Do You Use Sunscreen Routinely? Yes Information not available 09/30/2022 Has Tobacco Cessation Counseling Been Provided? No Information not available 09/30/2022 How Many Years Have You Smoked Tobacco? 10 Information not available 09/30/2022 Do You Have Difficulty Walking Or Climbing Stairs? No Information not available 09/30/2022 What Contraceptive Method Was Reported At Start Of This Visit? Female Sterilization Information not available 09/30/2022 What Contraceptive Method Was Reported At End Of This Visit? Female Sterilization Information not available 09/30/2022 Do You Want To Talk About Contraception Or Prevention During Your Visit Today? No - I Do Not Want To Talk About Contraception Today Because I Am Here For Something Else Information not available 09/30/2022 Do You Have Any Future Plans To Get ? No, I Don't Want To Become Information not available 09/30/2022 Sex: Female Functional Status Question Answer Note LastModified by Organizat ion Details LastModified Time Do you or have you ever used smokeless tobacco? Never used smokeless tobacco Information not available 09/30/2022 Are you currently employed? Yes Information not available 09/25/2021 Do you have transportation difficulties? No Information not available 09/30/2022 Are you able to care for yourself independently? Yes Information not available 09/25/2021 Do you have difficulty dressing, bathing, grooming, or toileting? No Information not available 09/30/2022 What is your exercise level? Occasional Information not available 09/30/2022 Do you use any illicit or recreational drugs? No Information not available 09/25/2021 Do you or have you ever used any other forms of tobacco or nicotine? No Information not available 09/30/2022 What is your level of alcohol consumption? None Information not available 09/25/2021 What is your status? Not Information no t available 09/30/2022 Are you able to walk independently without assistance or assistive devices? [email or web address] Information not available 09/30/2022 Do you have difficulty doing errands alone? 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 [id number] Information not available 09/30/2022 Do you have difficulty concentrating, remembering or making decisions? No Information no t available 09/30/2022 Family History Relationship Description Onset Age of this Age Resolved Age Notes LastModified by Organization Details LastModified Time Father Myocardial infarction 39 Not available 09/30 08:37:53 Father Hypertensive disorder Not available 2021 16:04:53 Father Diabetes mellitus Not available 2021 16:05:31 Father Hypercholest erolemia Not available 2022 08:37:53 Mother History of endometriosi s Not available 2022 08:37:53 Maternal Grandmother History of endometriosi s Not available 2022 08:37:53 Maternal Grandmother Chronic obstructive pulmonary disease Not available 2022 08:37:53 Sister History of endometriosi s Not available 2022 08:37:53 Maternal Aunt History of endometriosi s Not available 2022 08:37:53 Maternal Aunt Malignant neoplastic disease Not available 2022 08:37:53 Maternal Aunt Malignant neoplasm of cervix uteri Not available 10/2022 08:37:53 Maternal Grandfather Chronic obstructive pulmonary disease Not available 2022 08:37:53 Notes:maternal Great Aunt hx of cervical cancer Medical History No medical history recorded. Gynecological History Statement/Question Response Abnormal Pap N Flow Heavy Date of LMP 08/31/2022 Duration of Flow (days) 5 Age at Menarche 13 Current Control Method Tubal Ligat ion Age at First Child 18 Last Annual Exam/Provider 09/30/22 lls Frequency of Cycle (Q days) 30 Sexually Active? Y Date of Last Cervical Culture 09/25/2021 Menses Monthly Y Date of Last Pap Smear 09/30/2022 Obstetrics History GPAL:G 3 P 2 0 1 2 Type Value Full Term 2 Spontaneous 1 Living 2 Total 3 Past Encounters Encounter ID Performer Location Encounter Start Date Encounter Closed Date Diagnosis/Indication Diagnosis SNOMED-CT Code Diagnosis ICD10 Code Diagnosis IMO Codes Diagnosis Note [id number] MD Jc Chand OFFSET LITHOGRAPHIC PRESS OPERATOR [address] [facility] [place] [address] 09/25/2021 15:21:25 09/25/2021 17:49:33 Chronic pelvic pain of female 525209581 R10.2 Chronic dysmenorrh ea pattern that is bothersome but not as painful to her as these additional waves of pain that are associated with nausea, diarrhea, and rectal pain that do not seem to be in relation to her menstrual timing. She carries stated diagnosis of endometrio sis and interstiti al cystitis from 2015 evaluation at [facility] And symptoms are consistent with that at least in part. We will request records. I suspect her current pain status is multifacto rial likely both endometrio sis, , and GI. She has also developed pelvic floor muscle spasm likely secondary to some of the above issues.. Imaging finding in [place] September 05 of 1.7 cm irregular wall mass left ovary .. Most likely this would have been a corpus luteum finding given menstrual timing. We will reassess with ultrasound in the next few weeks. See discussion below Dysmenorrhea 510837539 N 94.6 Stated diagnosis endometrio sis. We will await records to confirm Chronic in terstitial cystitis 312899126 N30.10 States 2014 diagnosis without treatment other than initial hydrodiste ntion and being told about diet.. We will follow-up with her following gynecologi c interventi ons treatment of UTI and if still having pain os urgency symptoms may reassess with PST, and then consider for medical and intravesic al therapy. Records request Dysuria [id number] R30.9 More acute symptoms with dipstick suggestive of UTI. We will going to treat for this with Macrobid. We will continue to follow out for test of cure and follow symptoms as she has previously been labeled as IC. Diarrhea 58961960 R19.7 Episodic diarrhea occasional ly bloody and dyschezia associated with most recent pain problems. While this can potentiall y be associated with endometrio sis I feel she needs gastroente rology evaluation as well to exclude concomitan t inflammato ry bowel disease or neoplastic disease.. Discussed she may also be left with a label of irritable bowel syndrome and would appreciate GI input on management of this aspect of her syndrome. Reviewed hyoscyamin e is reasonable to continue until further GI input. Desires referral to [facility] Dr. Hurtado Counseling for sterilization done [id number] 9103 Z30.09 Contracept johnathan counseling completed including all hormonal, L ARC, surgical and male vasectomy options. She is 100 percent sure family is complete and would like surgical sterilizat ion as part of our treatment plan Screening for malignant neoplasm of cervix 320007710 Z12.4 Z11.3 Menorrhagia 277323729 N9 2.0 Normally timed but heavy cycles (with the exception of a delayed June 2021 cycle). Ultrasound assessment of risks and normal endometria l stripe but advise either SHG/EMB or hysterosco py D&C evaluation . Options for medical menstrual suppressio n including Depo-Prove ra .IUD, or GnRH antagonist reviewed. Reviewed ablation is available for menstrual suppressio n but I would not advise this be done without having tissue back from endometria l testing as well as would advise against this in setting of pelvic pain as well as general limitation s about making this difficult to ever assess endometriu m again.. For now she wanted hysterosco py D&C alone and did not want to try medication options yet. Will be checking on CBC with preop labs Stool flec ked with blood 834009520 R19.5 Pain assoc iated with defecation 750660952 K62.89 [id number] MD Jc Chand OFFSET LITHOGRAPHIC PRESS OPERATOR [address] [facility] [place] [id number] 10/21/2021 09:13:22 10/21/2021 10:33:48 Pre-surgery evaluation 303033632 Z01.818 counselgema diamond as below Chronic pe lvic pain of female 328222239 R10.2 Chronic dysmenorrh ea pattern that is bothersome but not as painful to her as these additional waves of pain that are associated with nausea, diarrhea, and rectal pain that do not seem to be in relation to her menstrual timing. She had thought she had been diagnosed with endometrio sis but return of records since last visit shows that this was NOT confirmed at 2015 laparoscop y. Cystoscopy notes that same year did suggest interstiti al cystitis,. suspect her current pain status is multifacto rial likely both PEDIATRIC SPEECH THERAPIST/possib le interval developmen t of endometrio sis/adenom yosis; (prior IC diagnosis plan recent UTI) , and GI. She has also developed pelvic floor muscle spasm likely secondary to some of the above issues.. Imaging finding in [place] September 05 of 1.7 cm irregular wall mass left ovary ... Ultrasound today shows interval resolution , no dominant cyst or follicle on either side, now on Orilissa x2 weeks and noticiing vasomotor sx but no significan t pain suppressio n yet. , ; continue low-dose Orilissa and will add norethindr one add back ; will assess for any interval developmen t of endometrio sis with laparoscop y. pt interested in possible TLH (as partial therapy) depending on findings and response to medical treatment. Menorrhagia 324980602 N9 2.0 Chronic heavy menstrual cycles. Grossly normal endometria l cavity and myometrium on ultrasound . Will complete hysterosco py D&C Dysmenorrhea 752469959 N 94.6 chronic moderate dysmenorrh ea; r/[facility]rio [facility] [id number] Z30.9 Family complete. Only using barrier methods up to this point Chronic in terstitial cystitis 446796924 N30.10 per 2015 cystoscopy . Most recent urgency/fr equency symptoms had had positive culture. We will continue surveillan ce cultures. If she has persistent pain or urgency symptoms despite menstrual suppressio n and with negative urine cultures, may consider PST and/or therapeuti c bladder flushes and Elmiron therapy Acute urin brando tract infection 942676596 N39.0 POS Klebsiella UTI 09/25/21: tx'd - moderate sx relief; [facility] today Counseling for sterilization done [id number] 9103 Z30.09 Contracept johnathan counseling completed including all hormonal, L ARC, surgical and male vasectomy options. She is 100 percent sure family is complete and would like surgical sterilizat ion as part of our treatment plan [id number] MD Jc Chand OFFSET LITHOGRAPHIC PRESS OPERATOR [address] [facility] [place] [id number] 12/04/2021 15:02:04 12/04/2021 16:31:00 Postoperative care 106188861 Z48.89 .No postoperat johnathan complicati ons noted, doing well*. Continue limited activity and pelvic rest until 6 week visit. Chronic pe lvic pain of female 635462811 R10.2 Chronic dysmenorrh ea pattern that is bothersome but not as painful to her as these additional waves of pain that are associated with nausea, diarrhea, and rectal pain that do not seem are not completely in relation to menstrual timing but do have some menstrual worsening. . Cystoscopy 2015 did suggest interstiti al cystitis,. suspect her current pain status is multifacto rial likely both PEDIATRIC SPEECH THERAPIST/adenom yosis confirmed at recent scope; (prior IC diagnosis without lorenzo dysuria symptoms even with recent UTI diagnosis) , and GI. She has also developed pelvic floor muscle spasm likely secondary to some of the above issues.. Imaging finding in [place] September 05 of 1.7 cm irregular wall mass left ovary . that was excluded on our imaging and at scope, , now on low-dose Orilissa x8 weeks with addback norethindr one x 6 w, ; is seeing some marginal improvemen t. Recently has had delay in availabili ty of this at pharmacy may have resulted in her having a delayed but withdrawal cycle. Resend prescripti on and advised if difficulty getting this still to let us know. Pt interested in possible TLH (as partial therapy) depending on response to longer medical trial ; also advising PST to see what degree of pain reproducti on with this and to see if we need to start on some directed bladder therapy as well .Can also consider increasing Orilissa to full strength 200 twice daily if not achieving menstrual suppressio n in the next month. [id number] MD Jc Chand OFFSET LITHOGRAPHIC PRESS OPERATOR [address] [place] [id number] 01/23/2022 08:59:21 01/23/2022 09:47:54 Chronic pelvic pain of female [id number] R10.2 Chronic dysmenorrh ea pattern that is bothersome but not as painful to her as these additional waves of pain that are associated with nausea, diarrhea, and rectal pain that do not seem are not completely in relation to menstrual timing but do have some menstrual worsening. . Cystoscopy 2014 did suggest interstiti al cystitis,. suspect her current pain status is multifacto rial likely both PEDIATRIC SPEECH THERAPIST/adenom yosis confirmed at recent scope; (prior IC diagnosis without lorenzo dysuria symptoms even with recent UTI diagnosis) , and GI/likely IBS. She has also developed pelvic floor muscle spasm likely secondary to some of the above issues.. Imaging finding in [place] September 05 of 1.7 cm irregular wall mass left ovary . that was excluded on our imaging and at scope, , now on low-dose Orilissa [id number] without the use of add back norethindr one, ; is seeing incrementa l dysmenorrh ea improvemen t with developmen t of hypermenor tavia but has not achieved amenorrhea . .At November visit she had felt she might want to consider hysterecto my due to dysmenorrh ea but now thinks things are improving enough that she is satisfied with medical Orilissa treatment for now, aware that hysterecto my remains an option should symptoms of dysmenorrh ea component worsen while on OrilissaTh e intermitte nt waves of pain with nausea and rectal pain she feels are now more associated with slow bowel transit and MiraLAX seems to have helped these. I advised adding fiber and stool softeners to try to maintain a more consistent transit time as maintenanc e. Chronic in terstitial cystitis [id number] N30.10 Prior dx , prior POS PST per pt-request record, presenting pain history did not seem suggestive of this as her primary syndrome. Reviewed dietary triggers to watch for History of female sterilization [id number] Z92.0 Bilateral salpingect yadiel 9 2 2 Uterine adenomyosis [id number] N80.00 Per curettings [id number] MD Jc Chand OFFSET LITHOGRAPHIC PRESS OPERATOR [address] [facility] [address] [place] [id number] 09/30/2022 08:28:38 09/30/2022 10:03:59 Gynecologic examination [id number] Z01.419 Depression screening 171 149269 Z13.31 Negative screen Hypertensi on screening [id number] Z13.6 Patient currently iswithin goal of less than 140/90. We will rescreen at annual visit, sooner if needed Exercises education, guidance, and counseling [id number] Z71.82 Advise 30 minutes 3 times a week at a minimum of purposeful exercise. Patient is currently meeting this goal. Dysuria [id number] R30.9 Prior diagnosis IC but still intermitte nt dysuria. Check with culture Chronic in terstitial cystitis [id number] N30.10 Plan amitriptyl ine both her chronic bladder symptoms and dysmenorrh ea and may help bowel symptoms as well. Menorrhagia 740078790 N9 2.0 Normally time but relatively heavy and painful cycles that are very bothersome for her.. Had come in with stated diagnosis 2014 of endometrio sis from outside hospital, not confirmed on her 2021 laparoscop y, but she did have adenomyosi s noted histologic ally. Brief trial of Orilissa 11 2 2 did suppress menses partially but did not tolerate trial of Orilissa with visual changes which would be a relatively uncommon side effect.. Declines alternativ e hormonal management ; discussed also IUD and she might consider this with limited systemic side effect potential. Will call if desires patient planning expectant management although would desire hysterecto my when she has time for this. Monitor with CBC to confirm no developing anemia Irritable bowel syndrome [id number] K58.9 Persistent diarrhea and rectal pain after initial visits with GI in [place]. Patient unclear of diagnosis or testing done and not really given a treatment plan. Has not had colonoscop y yet .advise follow up with GI for Diarrhea/r ectal pain Screening for malignant neoplasm of cervix [id number] Z12.4 Z11.3 Chronic pe lvic pain of female [id number] R10.2 Multifacto rial Uterine adenomyosis 7943 80234 N80.00 Per curettings Dysmenorrhea [id number] N 94.6 chronic moderate dysmenorrh ea;. Adenomyosi s per hysterosco py, no endometrio sis seen at laparoscop y 9 2 2. Previous stated endometrio sis diagnosis per outside scope 2014 Health Concerns Section Related Observation LastModified by Organization Detai ls LastModified Time None Recorded Concern Status LastModified by Organization Details LastModified Time None Recorded Advance Directives Directive N: Payers Insurance Date Sequence Insurance Name Policy Number Policy Moser Covered Member ID Moser Member ID Guarantor Name 09/30/2022 1 [facility] [id number] Robbi Mi [id number] Nighat Mi 11/27/2022 1 [facility] [id number] Robbi Mi [id number] Nighat Best Notes Date Note Type Note Provider Name and Address Organization Details Recorded Time 2 text/html Patient has complaint of chronicpersistent pelvic pain which has been a problem for over 6 months and is worsening. When the pain is at its worst, she rates the pain a 10/10 on pain scale. Her pain on exam today is 5/10. She notes the pain is frequently worsened by her menstrual cycleand any common activities. She admits associated symptoms of : nausea; adiarrhea;;and she denies associated sx: diarrhea dysuria;;;. She has tried measures to help. The pain does improve with otc nsaids. The pain has kept her from work.She has sought professional help for these problems.Nighat is a pleasant 26-year-old G2, P2 (biologic children 3 and 6, adopted stepdaughter age 11) who presents requesting second opinion regarding treatment options for worsening pelvic pain. She has a history of heavy flow and moderate to severe menstrual cramps which she has had for a long time and she does not feel like these are getting worse. However she is having an additional type of pelvic pain episode that is very intense and even more bothersome to her. For her baseline cycling, she is normally timed at 28 days although had a single delayed cycle between May to June at 58-day interval (negative UPT). Since then has had cycles July 16, August 14 and September 13. Her flow is pretty heavy the first for 5 days, we will soak through pads onto clothing. She has not had any intermenstrual bleeding. Menstrual cycles she will alternate ibuprofen and Tylenol, usually 3-4 doses of one of the other each day of her cycle and does not really feel like it helps. Heating pads will sometimes help. She describes her usual menstrual cramps as central to left-sided, describes dull cramping sensation rates it at 7 out of 10 that is present in relation to the amount of flow usually, occasionally starts the day before.. She has started to feel dyspareunia over the last 6 months This newer type of pain started about a year ago and is getting more frequent, happening 2 or 3 times a week now. This pain will hit as an extremely intense central to left-sided pain that doubles her over. She gets nauseated sweating and then has painful loose bowel movements occasionally with blood intermingled. These pain episodes will last at least 4 hours sometimes as long as 2 days. She states this doubles her over., States it feels like she is giving . She had described this to her PCP and had been given hyoscamine which she will try to take when he sit but she does not feel like it helps. She also uses Tylenol, heat and ibuprofen does not help much. She states these episodes are very inconsistent in her timing and she does not see any ongoing relationship between the episodes and her menstrual timing although does admit that the most recent episode that was September 12 started with the pain 1 day before she happened to start her normally timed menstrual cycle the next day and she did pass even larger clots than usual on the , shows me a picture of the bottom of toilet with a 5 cm clot. It was the first month that the pain timing felt anywhere close to her cycle, cycles usually are just crampy as above She states that in the last 3 months she has stayed sore almost every day with at least mild dull pain, such as today where she rates her pain 3 out of 10, more in the left side. This new her pain is starting to affect her home life and her ability to work. 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 She took that urinary test [id number] that told her she had a UTI and took some Azo that helped for a while but she feels like symptoms are starting to come back. She has had no fevers or chills She had had a delayed primary infertility as well as dysmenorrhea and [address] Bearden for which she remembers being told she had endometriosis. We do not have records.. She did not take any medical treatment following this and conceived fairly readily her first child. Also around that time she had been having a lot of urinary urgency and frequency symptoms and a urologist at [facility] diagnosed her with IC, she thinks this was by a cystoscopy. She does not remember having any ongoing intravesical or oral medication therapy. She has not had a lot of episodes of intervening urgency/frequency until the most recent episode in the last few weeks as above. She is not been treated for a lot of UTIs. She has no incontinence She has never had GI evaluation For family-planning, she states she and are 100% sure family is complete with the 3 children. They are raising his first daughter now 11 and the 2 children they have had together ages 3 and 6. She states she actually signed up for tubal ligation shortly after the of last child and backed out because did not seem very sure . She states he is now very sure but will go for vasectomy. They are currently only using condoms for protection. She states she has not used a lot of hormonal methods but remembers when she did use them as a younger woman it seemed like they made her mckeon but no medical side effects. She has not tried any hormonal methods since last child and would prefer not to have to. She is interested in proceeding with sterilization if possible She states she sought care with Dr. Walker in [place] who she had been seeing for few years since last child. He had ordered an ultrasound that was completed in [place] , and when she returned to care there to review that, he then advise proceeding with surgery. She has a listing of the proposed surgery on her phone which included robotic laparoscopy hysteroscopy D&C cystoscopy, endometrial ablation and bilateral salpingectomy. This was initially offered November 19 and then given the option of having this sooner on October 03. She states he also advised that she see a tree farmer but did not set this up. She does not remember being offered any type of medical treatment options. She states that she is still on her records at Dr. Walker's that Dr. Horne labeled her as PCO she does not know what this means. She has never had problems with hirsutism, obesity or irregularly timed menses so clinically would not be suspicious for this She comes in now for second opinion, referred to me by one of her friends at the detention who is my patient. She wonders if she can just have a hysterectomy. She has concerns regarding the reading of the ultrasound, brings report with her in disc with her. I was unable to visualize the images with our current computer system during her visit but we will try to see these after the visit on alternate device. The report described a normal size uterus with a 7 mm endometrium, right ovary normal right ovary, left ovary with a 1.7 cm irregular walled mass . No free fluid was seen. Radiologist encouraged follow-up evaluation after several menstrual cycles although did not use the word possible corpus luteum she was very worried that she might have cancer. She does not think she has had Pap testing in almost 3 years. No history of abnormal Pap testing. Enedina Toscano MD [facility] [address], [place], [address], [place] [facility] 09/26/2021 11:27:38 2 text/html Patient is an established patient who presents for follow up on chronic pelvic pain. At the last visit where this was addressed, which was her intial visit with myself on 09/25/21 she was noted to have skilled nursing problems with CPP, menorrhagia, dysmenorrhea, desire for sterlization and medical treatment was recommended. Surgical treatment discussed and scheduled 10/28/21 for diagnostic laparoscopy, bilateral salpingectomy, Hysteroscopy DC. Pertinent prior testin09/25/21 PAP wnl neg hpv, neg g/c . Urine culture: klebsiella pneumoniae treated with Bactrim Returns today for USAlangel describes her current symptoms as side effects of orilissa including: nausea, irregular bleeding and hot flashes noted. After discussion today, she is agreeable to a plan of surgical treatment. The specifics of treatment and timing of followup visit(s) are outlined below. History at presentation 8 4 where plan for surgery was made : Nighat is a pleasant 26-year-old G2, P2 (biologic children 3 and 6, adopted stepdaughter age 11) who presents requesting second opinion regarding treatment options for worsening pelvic pain.She has a history of heavy flow and moderate to severe menstrual cramps which she has had for a long time and she does not feel like these are getting worse. However she is having an additional type of pelvic pain episode that is very intense and even more bothersome to her.For her baseline cycling, she is normally timed at 28 days although had a single delayed cycle between May to June at 58-day interval (negative UPT). Since then has had cycles July 16, August 14 and September 13. Her flow is pretty heavy the first for 5 days, we will soak through pads onto clothing. She has not had any intermenstrual bleeding. Menstrual cycles she will alternate ibuprofen and Tylenol, usually 3-4 doses of one of the other each day of her cycle and does not really feel like it helps. Heating pads will sometimes help.She describes her usual menstrual cramps as central to left-sided, describes dull cramping sensation rates it at 7 out of 10 that is present in relation to the amount of flow usually, occasionally starts the day before..She has started to feel dyspareunia over the last 6 monthsThis newer type of pain started about a year ago and is getting more frequent, happening 2 or 3 times a week now. This pain will hit as an extremely intense central to left-sided pain that doubles her over. She gets nauseated sweating and then has painful loose bowel movements occasionally with blood intermingled. These pain episodes will last at least 4 hours sometimes as long as 2 days. She states this doubles her over., States it feels like she is giving . She had described this to her PCP and had been given hyoscamine which she will try to take when he sit but she does not feel like it helps. She also uses Tylenol, heat and ibuprofen does not help much. She states these episodes are very inconsistent in her timing and she does not see any ongoing relationship between the episodes and her menstrual timing although does admit that the most recent episode that was September 12 started with the pain 1 day before she happened to start her normally timed menstrual cycle the next day and she did pass even larger clots than usual on the , shows me a picture of the bottom of toilet with a 5 cm clot. It was the first month that the pain timing felt anywhere close to her cycle, cycles usually are just crampy as aboveShe states that in the last 3 months she has stayed sore almost every day with at least mild dull pain, such as today where she rates her pain 3 out of 10, more in the left side.This new her pain is starting to affect her home life and her ability to work. 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 She took that urinary test [id number] that told her she had a UTI and took some Azo that helped for a while but she feels like symptoms are starting to come back. She has had no fevers or chillsShe had had a delayed primary infertility as well as dysmenorrhea and [address] Bearden for which she remembers being told she had endometriosis. We do not have records.. She did not take any medical treatment following this and conceived fairly readily her first child. Also around that time she had been having a lot of urinary urgency and frequency symptoms and a urologist at [facility] diagnosed her with IC, she thinks this was by a cystoscopy. She does not remember having any ongoing intravesical or oral medication therapy. She has not had a lot of episodes of intervening urgency/frequency until the most recent episode in the last few weeks as above. She is not been treated for a lot of UTIs. She has no incontinenceShe has never had GI evaluationFor family-planning, she states she and are 100% sure family is complete with the 3 children. They are raising his first daughter now 11 and the 2 children they have had together ages 3 and 6. She states she actually signed up for tubal ligation shortly after the of last child and backed out because did not seem very sure . She states he is now very sure but will go for vasectomy. They are currently only using condoms for protection. She states she has not used a lot of hormonal methods but remembers when she did use them as a younger woman it seemed like they made her mckeon but no medical side effects. She has not tried any hormonal methods since last child and would prefer not to have to. She is interested in proceeding with sterilization if possibleShe states she sought care with Dr. Walker in [place] who she had been seeing for few years since last child. He had ordered an ultrasound that was completed in [place] , and when she returned to care there to review that, he then advise proceeding with surgery. She has a listing of the proposed surgery on her phone which included robotic laparoscopy hysteroscopy D&C cystoscopy, endometrial ablation and bilateral salpingectomy. This was initially offered November 19 and then given the option of having this sooner on October 03. She states he also advised that she see a tree farmer but did not set this up. She does not remember being offered any type of medical treatment options. She states that she is still on her records at Dr. Walker's that Dr. Bearden had labeled her as PCO she does not know what this means. She has never had problems with hirsutism, obesity or irregularly timed menses so clinically would not be suspicious for thisShe comes in now for second opinion, referred to me by one of her friends at the detention who is my patient. She wonders if she can just have a hysterectomy. She has concerns regarding the reading of the ultrasound, brings report with her in disc with her. I was unable to visualize the images with our current computer system during her visit but we will try to see these after the visit on alternate device. The report described a normal size uterus with a 7 mm endometrium, right ovary normal right ovary, left ovary with a 1.7 cm irregular walled mass . No free fluid was seen. Radiologist encouraged follow-up evaluation after several menstrual cycles although did not use the word possible corpus luteum she was very worried that she might have cancer.She does not think she has had Pap testing in almost 3 years. No history of abnormal Pap testing. 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 Advised to continue with plans for GI evaluationLeft with plan for hysteroscopy D&C, diagnostic laparoscopy, bilateral salpingectomy which is sent for , today being preop for that.Was started on Orilissa belowRecords request were sent. We did receive Dr. Thrasher 2014 laparoscopy that did NOT show any endometriosis-patient has been under the impression that it was seen, and urology cystoscopy same year that suggested interstitial cystitis with hydrodistention. Notes that she was given [place] the patient has no memory of this. We received office notes from Dr Bryan 2 visits August 2021 - but no plan section was included. visit to establish care, blood pressure was 143/75 and was given prescription for the patch.03-18 2 1 : was not using patch. annual exam, c/o PC bleeding, heavy cycles, fishy odor Requested hysterectomy,; Pap and HPV negative, Celeste/BV/trichomoniasis negative, hg 11.2, tsh nl ; rxd flagyl was advised to return to see MD. No additional visits seen [facility] 09/13 -started orilissa on 10/05 calling in for this on 09/26- had nto wanted leaving visit.started bleeding 10/08, then several days later had small spots of shedding tissue- last day of this was off/on.havent been cramping other than one episode severe doubling over left lower quadrant pain 6 d ago (only episode since last here). Noticing bothersome hot flashes and mild dizziness, not vertigo or syncope, , like I feel when I get a bad cramp . Willing to continue with this, and will give norethindrone add back to try to minimize vasomotor symptoms. Would anticipate ongoing menstrual suppression. saw gastro dr last week advised for bowel purge with otc miralax 5 doses at once , then a maintenance therapy with daily MiraLAX, xrays, stool samples; thinks chronic constipation- (patient states hard bowel movements only twice a week after previously described episodic diarrhea )- if not better after this will consider CSsaw SENIOR AIR DIRECTOR at Dr Hurtado's; no more RB, still has sp pain prior to BM S had Klebsiella UTI- completed out abx, -feels less irritated, less frequency, less pain with full bladder Remains 100% sure family is complete and ready to proceed with sterilization. Counseling: No chronic medical comorbidities. Non-smoker. Prior general anesthesia including laparoscopic cholecystectomy without difficulty. proposed procedures, potential findings, risk benefits and alternatives reviewed. We discussed this is primarily diagnostic procedure and no guarantee of pain or bleeding improvement with this. She is aware of all of the contraceptive alternatives to sterilization and desires permanent sterilization Enedina Toscano MD [facility] [address], [place], [address], [place] [facility] 10/21/2021 15:15:17 2 text/html Patient presents today for a(n) scheduled post op visit from Dx laparosocpy bilateral salpingectomy hysteroscopy DC done 10/28/2021. Surgical findings are discussed today and are significant for benign pathology with normal pelvis and uterine cavity, no adhesion or endometriosis seen. Since surgery she admits and denies Fevers, dysuria, incisional problems, increasing abdominal pain. Her pre-operative symptoms of Desiring sterilization and investigating pelvic pain symptoms have been accomplished. .She is satisfied with the surgical response so far. Further post operative treatment and follow up recommendations are reviewed today. Nighat returns for postop check.She had started [employer] September working on the stated history of her having endometriosis diagnosed 2014. In the interim we received surgical note from 2015 that did not show endometriosis and we have also seen that ourselves although we did have adenomyosis suggested on current pathology report Had a cycle shortly presurgery, late September and then again 1 week ago. She states it was like it always is, 2 days with quite a bit of pain from the back, horrible bowel movement pain with this like bowel spasm. She is working with tree farmer as well, she uses high-dose amine on a regular basis. Her tree farmer had is advised her to use a high-dose MiraLAX for short-term for bowel purge . She continues to have occasional spasms of rectum with bowel movements even when she is not on cycle but much worse during cycle. When he sit she also gets nauseated and makes lots of spit. Her tree farmer has advised stool sample if she needs a hat to collect stool GI wants stool smple needs hat.we also reviewed my receipt of her 2015 surgical notes from urology stating suspected interstitial cystitis with findings of friable glomerulations noted after repeated hydrodistention during cystoscopy. She does not remember therapy toward interstitial cystitis at that time. She currently does not describe a lot of pain with bladder being full or dysuria. She did have a positive urine culture E. coli September 25 at her initial visit, treated but follow-up post treatment October 21 was negative Enedina Toscano MD [address], [place], [address], [place] - [facility] 12/08/2021 12:11:38 2 text/html Patient is an established patient who presents for follow up on Endometriosis and IC. At the last visit where this was addressed, which was her postoperative visit with myself on 12/04/21 she was noted to have skilled nursing problem pain and medical treatment was recommended Orilissa..Pertinent prior testin10/28/2021 DX laparoscopy, Bilateral salpingectomy, hysteroscopy DC benign pathology ; no endometriosis visualized. Curettings did suggest adenomyosis. Grossly normal uterus. She describes her current symptoms as no pain, cycle irregualr with orlissa. .After discussion today, she is agreeable to a plan of medical treatment. The specifics of treatment and timing of followup visit(s) are outlined below. Returns for follow-up as scheduled for follow-up of suspected multifactorial chronic pelvic pain.From a standpoint. We had suggested possibly doing a PST on her to determine if she is having any current bladder sensitivity as part of her symptoms prior suggestion of IC. She updates hx that she had had PST done with Dr. Bearden maybe 2014 and it was a horrible traumatic experience for her definitely reproduce pain she states this is how she got referred to her urologist to have the cystoscopy. She does remember being told about dietary changes but did not do these. She never used Elmiron. Her last urine culture here - 09-24-2021. She does not have any significant dysuria/urgency component to her most recent syndrome of pain. At this point probably can hold on any pharmaceutical treatment toward IC given significant decrease in menstrual and intermenstrual pain but did review potential dietary triggers for her to pay attention to. Discussed availability of Elmiron or intravesical therapy if develops more of an urgency component or worseningWe will try to get some earlier notes from Dr. Thrasher and was most of the notes that they sent were 2018 and 19From gynecologic pain standpoint she has been using Orilissa since September working on the presumption she endometriosis because she thought Dr. Bearden had told her that her. Reviewed with her that his op note did not describe this and our surgical note from October did not describe this but was findings of adenomyosis I feel this is still a reasonable therapy for her. She has having significantly scalper operator and shorter menstrual cycles but still following about once a month but not very regularly timed, less than 3 days of bleeding per month. She still notes some cramps that she feels are much better than her baseline status because of bearable and she is not using any type of qccx-acy-zpeuzsh meds. She has not noticed hot flashes and is not using norethindrone. Salpingectomy done as her primary contraceptive method. She continues to have dyspareunia intermittently, states is positional, does think Orilissa has helped this in the last few months. She would like to continue Orilissa as long as possible. She just got a large supply at pharmacy for free! Her nonmenstrual pain has responded well to intermittent doses of MiraLAX, and she has noticed this seems to happen more if she gets 3 to 4 days without a bowel movement and then she evacuates bowels well after dose of MiraLAX and gets much better. She has been using this about every 2 weeks. She has not used any type of maintenance fiber or stool softener and we information about starting this.a little cramping but much less, shorter periods, bearable cramps. no med needed Enedina Toscano MD [facility] [address], [place], [address], [place] [facility] 01/23/2022 14:31:59 3 text/html Patient is a 27 year old who presents today as an established patient for an annual exam. Her previous annual exam was 09/25/21 with myself. She is a reproductive age women who who is spontaneously cycling. She describes her bleeding in the past year as regularShe is sexually active. .Family planning status: Family completeContraceptive status: status post Tubal ligation Other than needing a preventive exam, is also being followed for endometriosis/chronic pelvic and abdominal pain/suspected IC/chronic diarrhea and rectal painand this is addressed also todayShe is not currently taking orilissa due to eye issues. 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 She is not currently using antihypertensive medication. BMI/EXERCISE and DIET COUNSELLING:Her current BMI is 28. She is advised that her BMI is overweight . Her weight is documented as unchanged over the last year.Diet and physical activities addressed today included patient's activity level.patients current exercise status : NoneShe states she does not attempt to actively monitor her diet for attempts to lose weight or manage a medical condition.It is recommended that she continue current diet regimen.It is recommended that she increase current exercise status TOBACCO and SUBSTANCE ABUSE SCREENING:Patient is not a tobacco user. She denies the use of drugs. She denies the use of alcohol. DEPRESSION SCREENING:Patient completed a PHQ-9 form and scored a 1. See result on attached form. She does not have any risk factors for depression. She does not need to schedule with [facility] or mental health specialist.She is not using a psychoactive prescription currently. 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 Last day at [employer] tomorrow. IMMUNIZATION STATUS: Her immunization status was addressed today. see specifics on vaccine panel.Influenza : Current?No - advised and declined todayTdap: Current?:YesShingles: Current?:Gardasil:Current? :Pneumovax:Current?:Prevna r 13: Current?:covid; noOther indicated: :Current? : SCREENING STATUS:Her most recent screening test are reviewed as documented above. Currently overdue for:none.------ .Recent abnormal screening tests:none.------ . Based on her age and risk factors, she is DUE FOR THE FOLLOWING SCREENS :Pelvic and Breast exam: todayCervical cancer screenin09/25/21 wnl neg hpv . Test(s) indicated when next due: Pap with HPV Co-TestCervical Cultures: N/AMammogram : baseline due age 39Colonoscopy:baseline due at 44DEXA: N/A, underageLipids: follow with PCP as advisedUK Ovarian Cancer screening : Patient should return in 1 year for an annual wellness exam and sooner as needed for other problems. Nighat returns for annual exam. Being followed for chronic pelvic pain suspected Alex has had chronic dysmenorrhea and this continues.9 2 2 diagnostic laparoscopy hysteroscopy D&C salpingectomy. No obvious endometriosis, but endometrial pathology showed suspected adenomyosis. She had not had adequate dysmenorrhea with relief with norethindrone so Orilissa was advised 11 2 2. She thinks she may have used this 2 or 3 months before she started getting some vision changes and opted to discontinue. She does remember menstrual suppression and decreased pain while using this, cannot recall if she had hot flashes. Cycles continue fairly regularly monthly but are very painful and relatively heavy. Pain bothers her more than the flow. For menstrual problems that she would be very interested in considering hysterectomy but does not feel like she can take time off at this point from work. She did not want to try Orilissa again.. Prior to her sterilization is a much younger woman she had tried OCs remembers having a lot of mood changes and did not want to try this or Depo-Provera again.. For now she is willing to put up with the dysmenorrhea without hormonal intervention. Reviewed anti-inflammatory use. Reviewed option of adding amitriptyline as a chronic pelvic pain management option and she would like to try this In addition she will still sometimes have pain when bladder is full and frequency to void and occasional dysuria. She carries a diagnosis of interstitial cystitis from prior cystoscopies. She has never used Elmiron or amitriptyline. Her most bothersome pain waves have to do with waves of diarrhea and associated rectal pain with defecation. She has had at least 4 loose bowel movements today before visit. She sees no rectal bleeding. She states she has seen gastroenterology but has not yet had colonoscopy she was told all her studies were normal (stool studies) and offered no additional therapy. We have not received notes from that consultation in [facility]. Encouraged her to consider potential additional GI evaluation for symptomatic relief as well as to consider colonoscopy. She has had no further follow-up after initial 1 or 2 visits She has had no significant weight gain or loss. Enedina Toscano MD [address], [place], [address], [place] [facility] 10/03/2022 18:09:34 OBGyn Episode No OBEpisode recorded.
--- OUTSIDE RECORDS SUMMARY | 2024-12-29 07:46 | XMS_ITS | Clinical Summary ---
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 Name Role Phone Unavailable Primary Care Provider Unavailabl e Family History Medical History Relation Name Comments Cardiac disorder Father Hypertension Father Cardiac disorder Maternal Grandfather Cardiac disorder Maternal Grandmother Cardiac disorder Paternal Grandfather Cardiac disorder Paternal Grandmother Relation Name Status Comments Father Maternal Grandfather Maternal Grandmother Paternal Grandfather Paternal Grandmother Social History Tobacco Use Types Packs/Day Years Used Date Smoking Tobacco: Every Day Comments:Smokes 1 pack of ci garettes per day Alcohol Use Standard Drinks/Week Comments No 0 (1 standard drink = 0.6 oz pur e alcohol) Comments Unknown Sex and Gender Information Value Date Recorded Sex Assigned at Not on file Legal Sex Female 7:15 PM EDT Gender Identity Not on file Sexual Orientation Not on file Last Filed Vital Signs Vital Sign Reading Time Taken Comments Blood Pressure 135/87 03/29/2020 8:37 AM EST Pulse 97 03/29/2020 8:37 AM EST Temperature - - Respiratory Rate - - Oxygen Saturation - - Inhaled Oxygen Concentration - - Weight 78.2 kg (172 lb 6.4 oz) 03/29/2020 8:37 A M EST Height 165.1 cm (5' 5 ) 03/29/2020 8:37 AM EST Body Mass Index 28.69 03/29/2020 8:37 AM EST Plan of Treatment Health Maintenance Due Date Last Done Comments [facility]-Depression Screening 1994 [facility]-/Child/Adol SDOH Screenings 1994 [facility]-Varicella Vaccines (1 of 2 - 13+ 2-dose series) 09/15/2007 [facility]- SDOH Screenings 2012 [facility]-Adult SDOH Screenings 2012 [facility]-DTaP,Tdap,and Td Vaccine s (1 - Tdap) 2013 [facility]-Hepatitis B Vaccines (1 of 3 - 19+ 3-dose series) 2013 [facility]-Pap Smear 09/15/2015 HPV Vaccines (1 - 3-dose SCD M series) 2021 [facility]-Cervical Cancer Screening 2024 [facility]-HPV/Cotest 2024 [id number] Vaccine (1 - 20 24-25 season) 2024 [facility]-Influenza Vaccine (#1) 2024 [facility]-Zoster Vaccines (1 of 2) 2044 [facility]-HIB Vaccines Aged Out No longer e ligible based on patient's age to complete this topic [facility]-Hepatitis A Vaccines Aged Out No longer eligible based on patient's age to complete this topic [facility]-IPV Vaccines Aged Out No longer e ligible based on patient's age to complete this topic [facility]-Pneumococcal Vaccine: Pediatrics (0 to 5 Years) and At-Risk Patients (6 to 49 Years) Aged Out No long er eligible based on patient's age to complete this topic [facility]-Rotavirus Vaccines Aged Out No lo nger eligible based on patient's age to complete this topic
--- NOTE | 2024-12-29 08:02 | XR_ITS ---
FINAL REPORT CLINICAL HISTORY: abd pain, diarrhea COMPARISON: None FINDINGS: Two views of the abdomen demonstrate a moderate amount of stool throughout the colon. There are no abnormally dilated loops of small bowel. There is no free air. There are no abnormal calcifications. IMPRESSION: Moderate stool burden. Reviewed, Interpreted and Dictated by Dajuan Aguilar MD Transcribed by Sherin House Authenticated and [facility]
[2024-12-29 08:19] LABS: Hematocrit 43.2 % (37.0-47.0); Hemoglobin 14.8 g/dL (12.2-16.2); Immature Granulocytes % 0.1 %; Mean Corpuscular HGB Conc 34.3 g/dL (31.8-35.4); Mean Corpuscular Hemoglobin 30.4 pg (27.0-31.2); Mean Corpuscular Volume 88.7 fl (81-99); Nucleated Red Blood Cells % 0 %; Platelet Count 414 K/mm3 (142-424); Red Blood Count 4.87 M/mm3 (4.20-5.40); Red Cell Distribution Width-SD 39.7 fL; White Blood Count 7.9 K/mm3 (4.8-10.8)
[2024-12-29 09:16] LABS: Microscopic, Urine URINE MICROSCOPIC (MICROSCOPIC)
[2024-12-29 09:16] LABS: Clostridium Difficile A/B, PCR Not Detected (NotDetected); Cyclospora Cayetanesis Not Detected (NotDetected); Salmonella, PCR Not Detected (NotDetected); Shiga-like toxin E coli Not Detected (NotDetected); Shigella Enterovasive E coli Not Detected (NotDetected); Vibrio, PCR Not Detected (NotDetected); Yersinia Entercolitica, PCR Not Detected (NotDetected)
[2024-12-29 09:34] LABS: Alanine Aminotransferase 27 U/L (12-78); Albumin Level 4.8 g/dl (3.5-5.0); Albumin/Globulin Ratio 1.5 (1.1-1.8); Alkaline Phosphatase 76 U/L (38-126); Amylase 51 U/L (30-110); Anion Gap 13.3 mEq/L (5-15); Aspartate Amino Transferase 26 U/L (14-36); Bilirubin,Total 1.1 mg/dl (0.2-1.3); Blood Urea Nitrogen 11 mg/dl (7-17); Calcium 9.8 mg/dl (8.4-10.2); Carbon Dioxide 27 mmol/L (22.0-30.0); Chloride 101 mmol/L (98-107); Cholesterol 116 mg/dl (140-200); Creatinine,Serum 0.70 mg/dl (0.52-1.04); Estimated Glomerular Filt Rate 98 ml/min (>60); GFR (African American) 119 ML/MIN (>60); Globulin 3.1 g/dL (1.3-3.2); Glucose 98 mg/dl (74-100); HDL Cholesterol 41 mg/dl (40-60); Iron 140 ug/dL (37-170); Lipase 40 U/L (23-300); Potassium 4.3 mmoL/L (3.5-5.1); Sodium 137 mmol/L (136-145); Total Protein,Serum 7.9 g/dl (6.3-8.2); Triglycerides 112 mg/dl (30-150)
[2024-12-29 09:44] LABS: Bilirubin,Urine Negative (Negative); Color,Urine YELLOW (Yellow); Glucose,Urine (UA) Negative (Negative); Ketones,Urine Negative (Negative); Leukocyte Esterase,Urine Negative (Negative); PH,Urine 5.5 (5.0-8.5); Protein,Urine Negative (Negative); Specific Gravity, Urine >= 1.030 (1.005-1.030); Urobilinogen,Urine 0.2 EU/dl (0.2)
[2024-12-29 09:48] LABS: C-Reactive Protein 1.2 mg/L (0-4); Free T4 (Free Thyroxine) 1.02 ng/dl (0.78-2.19); Total Iron Binding Capacity 361 ug/dL (265-497)
[2024-12-29 09:52] LABS: 25-OH Vitamin D, Total 84.1 ng/mL (30-100)
[2024-12-29 10:05] LABS: Thyroid Stimulating Hormone 0.54 uIU/mL (0.465-4.68)
[2024-12-29 10:09] LABS: Ferritin 82.7 ng/ml (6.24-137)
[2024-12-29 10:24] LABS: Vitamin B12 392 pg/mL (239-931)
[2024-12-29 10:31] LABS: Bacteria,Urine Trace /lpf; WBC,Urine Occasional #/hpf (0-3)
[2024-12-29 11:15] LABS: Hemoglobin A1C 5.3 % (4.0-6.0)
[2024-12-29 12:07] LABS: Hepatitis C Ab Qual. W/ RFX NEGATIVE (Negative)
== END 2024-12-29 23:59 | disposition home or self-care (01) ==
PROVIDERS: PCP Nurse Practitioner Family; Visit Provider Nurse Practitioner Family
DX: K58.2 Mixed irritable bowel syndrome (principal); E55.9 Vitamin D deficiency, unspecified; E78.6 Lipoprotein deficiency; E53.8 Deficiency of other specified B group vitamins; R53.83 Other fatigue; Z11.59 Encounter for screening for other viral diseases; Z11.4 Encounter for screening for human immunodeficiency virus [HIV]; R19.5 Other fecal abnormalities; E11.9 Type 2 diabetes mellitus without complications; I10 Essential (primary) hypertension; G47.33 Obstructive sleep apnea (adult) (pediatric); R41.3 Other amnesia
CPT/HCPCS: 36415; 74019; 80053; 80061; 81001; 82150; 82306; 82607; 82728; 83036; 83540; 83550; 83690; 84439; 84443; 85025; 85651; 86140; 86803; 87045; 87086; 87389; 87506